=== PATIENT | male | born 1965 | race Caucasian/White ===

== ENCOUNTER 2017-01-15 17:57 | Emergency (ER) | payer OTHER ==
[2017-01-15 18:05] VITALS: TEMP 97.8
[2017-01-15] MEDS ORDERED: ACTIVATED CHARCOAL 50 GM/240 ML BOTTLE NG-TUBE STA (18:06)
[2017-01-15] MEDS ORDERED: SODIUM CHLORIDE 0.9% 500 ML IV STA (18:06)
--- NOTE | 2017-01-15 18:09 | ED ---
General Adult HPI - General Source: patient, EMS, RN notes reviewed Mode of arrival: EMS Limitations: no limitations <Maico Short - Last Filed: 01/15/17 18:13> <Clarke English - Last Filed: 01/15/17 23:25> - General Chief complaint: Overdose Stated complaint: overdose Time Seen by Provider: 01/15/17 18:00 - History of Present Illness Initial comments: Patient is a pleasant 51-year-old male presenting to the emergency department following an overdose. Patient states he took approximately 8 or 10 trazodone. Unclear dose. These were not his pills. Patient has been depressed and has multiple stressors including girlfriend and work and money and others. No history of suicide attempt in the past. Patient denies homicidal thoughts. No physical complaints. No hallucinations. (Maico Short) - Related Data Home Medications Medication Instructions Recorded Confirmed No Known Home Medications [No 01/15/17 01/15/17 Known Home Medications] Allergies Allergy/AdvReac Type Severity Reaction Status Date / Time No Known Allergies Allergy Verified 01/15/17 18:34 Review of Systems ROS Other: All systems not noted in ROS Statement are negative. Constitutional: Denies: fever, chills Eyes: Denies: eye pain ENT: Denies: ear pain Respiratory: Denies: cough, dyspnea Cardiovascular: Denies: chest pain Endocrine: Reports: fatigue Gastrointestinal: Denies: abdominal pain Genitourinary: Denies: dysuria Musculoskeletal: Denies: back pain Skin: Denies: rash Neurological: Denies: headache Psychiatric: Reports: depression, suicidal thoughts <Maico Short - Last Filed: 01/15/17 18:13> ROS Other: All systems not noted in ROS Statement are negative. <Clarke English - Last Filed: 01/15/17 23:25> ROS Statement: Those systems with pertinent positive or pertinent negative responses have been documented in the HPI. Past Medical History Past Medical History: Diabetes Mellitus History of Any Multi-Drug Resistant Organisms: None Reported Past Surgical History: Cholecystectomy, Orthopedic Surgery Additional Past Surgical History / Comment(s): Right leg steel sinai Past Anesthesia/Blood Transfusion Reactions: Previous Problems w/ Anesthesia Additional Past Anesthesia/Blood Transfusion Reaction / Comment(s): Stopped breathing during choly Past Psychological History: No Psychological Hx Reported Smoking Status: Current every day smoker Past Alcohol Use History: None Reported Past Drug Use History: None Reported - Past Family History Father Family Medical History: Coronary Artery Disease (CAD) Mother Family Medical History: No Reported History <Maico Short - Last Filed: 01/15/17 18:13> General Exam Limitations: no limitations General appearance: alert (Slightly drowsy. Easily arousable to voice), in no apparent distress Head exam: Present: atraumatic Eye exam: Present: normal appearance, PERRL, EOMI. Absent: nystagmus ENT exam: Present: normal oropharynx Neck exam: Present: normal inspection Respiratory exam: Present: normal lung sounds bilaterally Cardiovascular Exam: Present: regular rate, normal rhythm GI/Abdominal exam: Present: soft. Absent: tenderness Extremities exam: Present: normal inspection Neurological exam: Present: other (Drowsy) Psychiatric exam: Present: depressed Skin exam: Absent: rash <Maico Short - Last Filed: 01/15/17 18:13> EKG Findings - EKG Comments: EKG Findings:: Normal sinus rhythm 87. OR 172. QRS 90. QT 388. QTC 466. Right axis. Normal QRS. Normal ST-T. <Maico Short - Last Filed: 01/15/17 18:13> Medical Decision Making <Maico Short - Last Filed: 01/15/17 18:13> - Lab Data Result diagrams: 01/15/17 18:12 01/15/17 18:12 <Clarke English - Last Filed: 01/15/17 23:25> - Medical Decision Making Dr. Sohrt signed out the patient to me and stated that the patient was medically clear and that the psychiatric team was contacted [facility] came down to evaluate the patient and determined that the patient can be discharged home with appropriate follow-up and that was arranged. (Clarke English) - Lab Data Lab Results 01/15/17 01/15/17 01/15/17 Range/Units 18:12 18:12 18:12 WBC 8.3 (3.8-10.6) k/uL RBC 4.76 (4.30-5.90) m/uL Hgb 14.4 (13.0-17.5) gm/dL Hct 42.4 (39.0-53.0) % MCV 89.0 (80.0-100.0) fL MCH 30.2 (25.0-35.0) pg MCHC 33.9 (31.0-37.0) g/dL RDW 12.9 (11.5-15.5) % Plt Count 268 (150-450) k/uL Neutrophils % 53 % Lymphocytes % 38 % Monocytes % 4 % Eosinophils % 3 % Basophils % 1 % Neutrophils # 4.4 (1.3-7.7) k/uL Lymphocytes # 3.1 (1.0-4.8) k/uL Monocytes # 0.3 (0-1.0) k/uL Eosinophils # 0.2 (0-0.7) k/uL Basophils # 0.1 (0-0.2) k/uL PT (9.0-12.0) sec INR (<1.1) Sodium 140 (137-145) mmol/L Potassium 3.5 (3.5-5.1) mmol/L Chloride 109 H (98-107) mmol/L Carbon Dioxide 19 L (22-30) mmol/L Anion Gap 12 mmol/L BUN 14 (9-20) mg/dL Creatinine 0.82 (0.66-1.25) mg/dL Est GFR (MDRD) Af Amer >60 (>60 ml/min/1.73 sqM) Est GFR (MDRD) Non-Af >60 (>60 ml/min/1.73 sqM) Glucose 169 H (74-99) mg/dL Calcium 9.3 (8.4-10.2) mg/dL Total Bilirubin 0.7 (0.2-1.3) mg/dL AST 14 L (17-59) U/L ALT 21 (21-72) U/L Alkaline Phosphatase 68 (38-126) U/L Total Protein 6.7 (6.3-8.2) g/dL Albumin 3.9 (3.5-5.0) g/dL Salicylates <1.0 mg/dL Urine Opiates Screen Not Detected (NotDetected) Ur Oxycodone Screen Not Detected (NotDetected) Urine Methadone Screen Not Detected (NotDetected) Ur Propoxyphene Screen Not Detected (NotDetected) Acetaminophen <10.0 ug/mL Ur Barbiturates Screen Not Detected (NotDetected) U Tricyclic Antidepress Not Detected (NotDetected) Ur Phencyclidine Scrn Not Detected (NotDetected) Ur Amphetamines Screen Not Detected (NotDetected) U Methamphetamines Scrn Not Detected (NotDetected) U Benzodiazepines Scrn Not Detected (NotDetected) Urine Cocaine Screen Not Detected (NotDetected) U Marijuana (THC) Screen Not Detected (NotDetected) Serum Alcohol <10 mg/dL 01/15/17 Range/Units 18:12 WBC (3.8-10.6) k/uL RBC (4.30-5.90) m/uL Hgb (13.0-17.5) gm/dL Hct (39.0-53.0) % MCV (80.0-100.0) fL MCH (25.0-35.0) pg MCHC (31.0-37.0) g/dL RDW (11.5-15.5) % Plt Count (150-450) k/uL Neutrophils % % Lymphocytes % % Monocytes % % Eosinophils % % Basophils % % Neutrophils # (1.3-7.7) k/uL Lymphocytes # (1.0-4.8) k/uL Monocytes # (0-1.0) k/uL Eosinophils # (0-0.7) k/uL Basophils # (0-0.2) k/uL PT 11.3 (9.0-12.0) sec INR 1.1 (<1.1) Sodium (137-145) mmol/L Potassium (3.5-5.1) mmol/L Chloride (98-107) mmol/L Carbon Dioxide (22-30) mmol/L Anion Gap mmol/L BUN (9-20) mg/dL Creatinine (0.66-1.25) mg/dL Est GFR (MDRD) Af Amer (>60 ml/min/1.73 sqM) Est GFR (MDRD) Non-Af (>60 ml/min/1.73 sqM) Glucose (74-99) mg/dL Calcium (8.4-10.2) mg/dL Total Bilirubin (0.2-1.3) mg/dL AST (17-59) U/L ALT (21-72) U/L Alkaline Phosphatase (38-126) U/L Total Protein (6.3-8.2) g/dL Albumin (3.5-5.0) g/dL Salicylates mg/dL Urine Opiates Screen (NotDetected) Ur Oxycodone Screen (NotDetected) Urine Methadone Screen (NotDetected) Ur Propoxyphene Screen (NotDetected) Acetaminophen ug/mL Ur Barbiturates Screen (NotDetected) U Tricyclic Antidepress (NotDetected) Ur Phencyclidine Scrn (NotDetected) Ur Amphetamines Screen (NotDetected) U Methamphetamines Scrn (NotDetected) U Benzodiazepines Scrn (NotDetected) Urine Cocaine Screen (NotDetected) U Marijuana (THC) Screen (NotDetected) Serum Alcohol mg/dL Disposition <Maico Short - Last Filed: 01/15/17 18:13> Time of Disposition: 23:24 <Clarke English - Last Filed: 01/15/17 23:25> Clinical Impression: Situational depression, Drug overdose Disposition: HOME SELF-CARE Condition: Good Instructions: Depression (ED) Additional Instructions: Patient should follow-up per [facility]'s direction.
[2017-01-15 18:30] LABS: Basophils # (A) 0.1 k/uL (0-0.2); Basophils % (A) 1 %; CH 30.2; CHCM 34.1; Eosinophils # (A) 0.2 k/uL (0-0.7); Eosinophils % (A) 3 %; HCT 42.4 % (39.0-53.0); HDW 2.64; HGB 14.4 gm/dL (13.0-17.5); Luc # (Auto) 0.19; Luc % (Auto) 2; Lymphocytes # (A) 3.1 k/uL (1.0-4.8); Lymphocytes % (A) 38 %; MCH 30.2 pg (25.0-35.0); MCHC 33.9 g/dL (31.0-37.0); Mean Platelet Volume 7.3; Monocytes # (A) 0.3 k/uL (0-1.0); Monocytes % (A) 4 %; Neutrophils # (A) 4.4 k/uL (1.3-7.7); Neutrophils % (A) 53 %; RBC 4.76 m/uL (4.30-5.90); RDW 12.9 % (11.5-15.5); WBC 8.3 k/uL (3.8-10.6); WBC (Perox) 8.37
[2017-01-15 18:50] LABS: ALT 21 U/L (21-72); AST 14 U/L (17-59); Acetaminophen <10.0 ug/mL; Alcohol <10 mg/dL; Alkaline Phosphatase 68 U/L (38-126); Anion Gap 12 mmol/L; Blood Urea Nitrogen 14 mg/dL (9-20); Calcium 9.3 mg/dL (8.4-10.2); Carbon Dioxide 19 mmol/L (22-30); Chloride 109 mmol/L (98-107); Glucose 169 mg/dL (74-99); Non-African American GFR(MDRD) >60 (>60 ml/min/1.73 sqM); Potassium 3.5 mmol/L (3.5-5.1); Salicylate <1.0 mg/dL; Sodium 140 mmol/L (137-145); Total Bilirubin 0.7 mg/dL (0.2-1.3); Total Protein 6.7 g/dL (6.3-8.2)
[2017-01-15 18:51] LABS: INR 1.1 (<1.1); Prothrombin Time 11.3 sec (9.0-12.0)
[2017-01-15 23:44] VITALS: BP 108/66; PULSE 74; RESP 18
== END 2017-01-15 23:43 | disposition home or self-care (01) ==
LOC: EC 17:57
DX: T43.212A Poisoning by selective serotonin and norepinephrine reuptake inhibitors, intentional self-harm, initial encounter (principal); F43.21 Adjustment disorder with depressed mood; F17.200 Nicotine dependence, unspecified, uncomplicated
CPT/HCPCS: 36415; 80053; 80306; 80320; 83520; 85025; 85610; 93005; 96360; 99285

== ENCOUNTER 2017-04-12 14:58 | Emergency (ER) | payer OTHER ==
[2017-04-12 15:18] VITALS: BP 108/71; PULSE 101; RESP 16; TEMP 98.2
--- NOTE | 2017-04-12 15:39 | XR ---
EXAMINATION TYPE: XR knee complete LT DATE OF EXAM: 04/12/2017 CLINICAL HISTORY: pain TECHNIQUE: Three views of the left knee are obtained. COMPARISON: None. FINDINGS: There is no acute fracture/dislocation. The tri-compartment joint spaces appear within no rmal limits. The overlying soft tissue appears unremarkable. IMPRESSION: There is no acute fracture or dislocation ICD 10 NO FRACTURE, INITIAL EVALUATION
--- NOTE | 2017-04-12 15:56 | ED ---
Lower Extremity Injury HPI - General Chief Complaint: Extremity Injury, Lower Stated Complaint: [facility] left knee injury Time Seen by Provider: 04/12/17 15:20 Source: patient, RN notes reviewed Mode of arrival: ambulatory Limitations: no limitations - History of Present Illness Initial Comments: 52-year-old male presents emergency Department chief complaint left knee pain. 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 Patient states that he stepped into a pothole and twisted his knee. He has had ongoing pain on the lateral aspect. Patient states that he's had no prior injuries. Patient states his happened approximately one week ago. - Related Data Home Medications Medication Instructions Recorded Confirmed Ibuprofen [Advil] 400 mg PO Q8HR PRN 04/12/17 04/12/17 Previous Rx's Medication Instructions Recorded Acetaminophen-Codeine 300-30mg 1 tab PO Q4H PRN #20 tablet 04/12/17 [Tylenol #3] Ibuprofen [Motrin] 600 mg PO Q8HR PRN #30 tab 04/12/17 Allergies Allergy/AdvReac Type Severity Reaction Status Date / Time No Known Allergies Allergy Verified 04/12/17 15:24 Review of Systems ROS Statement: Those systems with pertinent positive or pertinent negative responses have been documented in the HPI. ROS Other: All systems not noted in ROS Statement are negative. Past Medical History Past Medical History: Diabetes Mellitus History of Any Multi-Drug Resistant Organisms: None Reported Past Surgical History: Orthopedic Surgery Additional Past Surgical History / Comment(s): Right leg steel sinai, stent placed in gallbladder Past Anesthesia/Blood Transfusion Reactions: Previous Problems w/ Anesthesia Additional Past Anesthesia/Blood Transfusion Reaction / Comment(s): Stopped breathing during choly Past Psychological History: No Psychological Hx Reported Smoking Status: Current every day smoker Past Alcohol Use History: None Reported Past Drug Use History: None Reported - Past Family History Father Family Medical History: Coronary Artery Disease (CAD) Mother Family Medical History: No Reported History General Exam Limitations: no limitations General appearance: alert, in no apparent distress Head exam: Present: atraumatic, normocephalic, normal inspection Neck exam: Present: normal inspection. Absent: tenderness, meningismus, lymphadenopathy Respiratory exam: Present: normal lung sounds bilaterally. Absent: respiratory distress, wheezes, rales, rhonchi, stridor Cardiovascular Exam: Present: regular rate, normal rhythm, normal heart sounds. Absent: systolic murmur, diastolic murmur, rubs, gallop, clicks Extremities exam: Present: other (Left knee there is nausea for no swelling no ecchymosis patient has pain over the lateral aspect.Patient has pain with various there is no laxity noted negative anterior posterior drawer) Course Vital Signs 04/12/17 15:12 Temperature 98.2 F Pulse Rate 101 H Respiratory 16 Rate Blood Pressure 108/71 O2 Sat by Pulse 95 Oximetry Medical Decision Making - Medical Decision Making 52-year-old male presented for left knee pain. Patient most likely has missed injury. Patient's x-ray does not show an acute osseous lesion. Patient will be follow-up with orthopedics return parameters were discussed. Disposition Clinical Impression: Left knee sprain, Injury of meniscus of knee Disposition: HOME SELF-CARE Condition: Stable Instructions: Knee Sprain (ED) Additional Instructions: Please return to the Emergency Department if symptoms worsen or any other concerns. Prescriptions: Acetaminophen-Codeine 300-30mg [Tylenol #3] 1 tab PO Q4H PRN #20 tablet PRN Reason: pain Ibuprofen [Motrin] 600 mg PO Q8HR PRN #30 tab PRN Reason: Pain Referrals: Francisco Phipps MD [Primary Care Provider] - 1-2 days Shabbir Pang MD [STAFF PHYSICIAN] - 1-2 days Time of Disposition: 15:56
== END 2017-04-12 16:01 | disposition home or self-care (01) ==
LOC: EC 14:58
DX: S83.8X2A Sprain of other specified parts of left knee, initial encounter (principal); F17.200 Nicotine dependence, unspecified, uncomplicated; Z98.890 Other specified postprocedural states; X50.1XXA Overexertion from prolonged static or awkward postures, initial encounter; Y93.89 Activity, other specified; Y99.0 Civilian activity done for income or pay; Y92.69 Other specified industrial and construction area as the place of occurrence of the external cause
CPT/HCPCS: 99283

== ENCOUNTER 2017-04-25 02:46 | Emergency (ER) | payer OTHER ==
[2017-04-25 02:53] VITALS: RESP 18
[2017-04-25] MEDS ORDERED: predniSONE 50 MG TAB PO STA (03:19)
[2017-04-25] MEDS ORDERED: HYDROcodone/APAP 5-325MG 1 EACH TAB PO STA (03:21)
--- NOTE | 2017-04-25 03:25 | ED ---
General Adult HPI - General Chief complaint: Neck Pain/Injury Stated complaint: Neck/Arm Pain Time Seen by Provider: 04/25/17 02:57 Source: patient, RN notes reviewed Mode of arrival: ambulatory Limitations: no limitations - History of Present Illness Initial comments: Patient is a 52-year-old male presents emergency room for evaluation of right- sided neck pain. Patient states he has a history of arthritis in his neck. Patient states during the night he began having worsening right-sided neck pain radiating into his right arm. Patient denies any recent trauma or injury to his neck. Patient states he has pain when he moves his neck from left to right. Patient denies numbness or tingling going down his right arm. Patient states he took Advil with no relief of symptoms. Patient denies any arm weakness. - Related Data Home Medications Medication Instructions Recorded Confirmed Ibuprofen [Advil] 400 mg PO Q8HR PRN 04/12/17 04/25/17 Previous Rx's Medication Instructions Recorded HYDROcodone/APAP 5-325MG [[place] 1 tab PO Q6HR PRN 12 Days 04/25/17 5-325] predniSONE 50 mg PO DAILY #4 tablet 04/25/17 Allergies Allergy/AdvReac Type Severity Reaction Status Date / Time No Known Allergies Allergy Verified 04/25/17 02:53 Review of Systems ROS Statement: Those systems with pertinent positive or pertinent negative responses have been documented in the HPI. ROS Other: All systems not noted in ROS Statement are negative. Past Medical History Past Medical History: Diabetes Mellitus, Osteoarthritis (OA) Additional Past Medical History / Comment(s): pt states diabetes has resolved after 62 lb weight loss History of Any Multi-Drug Resistant Organisms: None Reported Past Surgical History: Orthopedic Surgery Additional Past Surgical History / Comment(s): Right leg steel sinai, stent placed in gallbladder Past Anesthesia/Blood Transfusion Reactions: Previous Problems w/ Anesthesia Additional Past Anesthesia/Blood Transfusion Reaction / Comment(s): Stopped breathing during choly Past Psychological History: No Psychological Hx Reported Smoking Status: Current every day smoker Past Alcohol Use History: None Reported Past Drug Use History: None Reported - Past Family History Father Family Medical History: Coronary Artery Disease (CAD) Mother Family Medical History: No Reported History General Exam - General Exam Comments Initial Comments: Sitting in exam room, no acute distress. Limitations: no limitations General appearance: alert, in no apparent distress Head exam: Present: atraumatic, normocephalic, normal inspection Eye exam: Present: normal appearance ENT exam: Present: normal exam Neck exam: Present: tenderness ( Tenderness on palpating over the right trapezius muscle) Respiratory exam: Present: normal lung sounds bilaterally. Absent: respiratory distress Cardiovascular Exam: Present: regular rate, normal rhythm, normal heart sounds Extremities exam: Present: normal inspection, full ROM. Absent: tenderness Back exam: Present: normal inspection Neurological exam: Present: alert, oriented X3, CN II-XII intact, normal gait Psychiatric exam: Present: normal affect, normal mood Skin exam: Present: warm, dry, intact, normal color. Absent: rash Course Vital Signs 04/25/17 04/25/17 02:49 04:33 Temperature 98.0 F 97.8 F Pulse Rate 101 H 66 Respiratory 18 18 Rate Blood Pressure 125/75 119/69 O2 Sat by Pulse 98 98 Oximetry Medical Decision Making - Medical Decision Making patient is a 52-year-old male presents to the emergency room for evaluation of right-sided neck pain and arm pain. It appears the patient is having some muscle spasming of his right neck. Patient does have history of chronic neck pain. Patient having radiculopathy from neck pain. Patient be placed on prednisone and pain medications and advised to follow-up with primary care provider. Patient states he understands everything that was discussed with him. Return parameters discussed. Case discussed Dr. Santo. - Radiology Data Radiology results: report reviewed, image reviewed Disposition Clinical Impression: Cervical radiculopathy, Chronic neck pain Disposition: HOME SELF-CARE Condition: Good Instructions: Cervical Radiculopathy (ED), Neck Pain (ED) Additional Instructions: Please follow up with primary care provider in 1-2 days. If any new symptom arises or symptoms worsen, return to ER as soon as possible. Prescriptions: HYDROcodone/APAP 5-325MG [[place] 5-325] 1 tab PO Q6HR PRN 12 Days PRN Reason: Pain predniSONE 50 mg PO DAILY #4 tablet Referrals: Francisco Phipps MD [Primary Care Provider] - 1-2 days Time of Disposition: 04:27
--- NOTE | 2017-04-25 04:21 | XR ---
EXAM: XR Cervical Spine, 4 or 5 Views CLINICAL HISTORY: Reason: Pain TECHNIQUE: Frontal, lateral and oblique views of the cervical spine. COMPARISON: No relevant prior studies available. FINDINGS: Vertebrae: No acute fracture. Normal alignment. Disc spaces: Multilevel degenerative changes, greatest at C5-C6 and C6- C7 with moderate to severe right neuroforaminal narrowing. Soft tissues: Unremarkable. IMPRESSION: 1. No evidence of acute fracture. 2. Multilevel degenerative changes, greatest at C5-C6 and C6-C7 with moderate to severe right neuroforaminal narrowing.
[2017-04-25 04:37] VITALS: BP 119/69; PULSE 66; TEMP 97.8
== END 2017-04-25 04:38 | disposition home or self-care (01) ==
LOC: EC 02:46
DX: M54.12 Radiculopathy, cervical region (principal); F17.200 Nicotine dependence, unspecified, uncomplicated
CPT/HCPCS: 99283; 72050; J7512

== ENCOUNTER 2017-10-01 22:06 | Inpatient (IN) | payer OTHER ==
[2017-10-01 22:27] LABS: Basophils # (A) 0.1 k/uL (0-0.2); Basophils % (A) 1 %; Eosinophils # (A) 0.3 k/uL (0-0.7); Eosinophils % (A) 4 %; HCT 44.2 % (39.0-53.0); HGB 14.7 gm/dL (13.0-17.5); Lymphocytes # (A) 1.9 k/uL (1.0-4.8); Lymphocytes % (A) 29 %; MCH 30.2 pg (25.0-35.0); MCHC 33.2 g/dL (31.0-37.0); MCV 91.1 fL (80.0-100.0); Mean Platelet Volume 7.1; Monocytes # (A) 0.4 k/uL (0-1.0); Monocytes % (A) 6 %; Neutrophils # (A) 3.8 k/uL (1.3-7.7); Neutrophils % (A) 57 %; Platelet Count 233 k/uL (150-450); RBC 4.86 m/uL (4.30-5.90); RDW 12.6 % (11.5-15.5); WBC 6.6 k/uL (3.8-10.6)
--- NOTE | 2017-10-01 22:28 | ED ---
General Adult HPI - General Chief complaint: Chest Pain Stated complaint: Chest Pain Time Seen by Provider: 10/01/17 22:11 Source: patient, EMS, RN notes reviewed, old records reviewed Mode of arrival: EMS Limitations: no limitations - History of Present Illness Initial comments: This is a 49-year-old male to the ER for evaluation. Patient is here today for evaluation of chest pain. Patient coming chest pain, exertional shortness of breath. Patient states he does have history of PE. Denies illicit contacts or travel history recently. Patient is not currently on both respiratory no fever cough or congestion. Patient's chest pain is left sided, sharp. - Related Data Home Medications Medication Instructions Recorded Confirmed Ibuprofen [Advil] 400 mg PO Q8HR PRN 04/12/17 04/25/17 Previous Rx's Medication Instructions Recorded HYDROcodone/APAP 5-325MG [Merrill 1 tab PO Q6HR PRN 12 Days tab 04/25/17 5-325] predniSONE 50 mg PO DAILY #4 tablet 04/25/17 Allergies Allergy/AdvReac Type Severity Reaction Status Date / Time No Known Allergies Allergy Verified 04/25/17 02:53 Review of Systems ROS Statement: Those systems with pertinent positive or pertinent negative responses have been documented in the HPI. ROS Other: All systems not noted in ROS Statement are negative. Past Medical History Past Medical History: Diabetes Mellitus, Myocardial Infarction ([place]), Osteoarthritis (OA), Pulmonary Embolus (PE) Additional Past Medical History / Comment(s): pt states diabetes has resolved after 62 lb weight loss History of Any Multi-Drug Resistant Organisms: None Reported Past Surgical History: Orthopedic Surgery Additional Past Surgical History / Comment(s): Right leg steel sinai, stent placed in gallbladder Past Anesthesia/Blood Transfusion Reactions: Previous Problems w/ Anesthesia Additional Past Anesthesia/Blood Transfusion Reaction / Comment(s): Stopped breathing during choly Past Psychological History: No Psychological Hx Reported Smoking Status: Current every day smoker Past Alcohol Use History: None Reported Past Drug Use History: None Reported - Past Family History Father Family Medical History: Coronary Artery Disease (CAD) Mother Family Medical History: No Reported History General Exam Limitations: no limitations General appearance: alert, in no apparent distress, anxious Head exam: Present: atraumatic, normocephalic, normal inspection Eye exam: Present: normal appearance, PERRL, EOMI. Absent: scleral icterus, conjunctival injection, periorbital swelling ENT exam: Present: normal exam, mucous membranes moist Neck exam: Present: normal inspection. Absent: tenderness, meningismus, lymphadenopathy Respiratory exam: Present: normal lung sounds bilaterally. Absent: respiratory distress, wheezes, rales, rhonchi, stridor Cardiovascular Exam: Present: regular rate, normal rhythm, normal heart sounds. Absent: systolic murmur, diastolic murmur, rubs, gallop, clicks GI/Abdominal exam: Present: soft, normal bowel sounds. Absent: distended, tenderness, guarding, rebound, rigid Extremities exam: Present: normal inspection, full ROM, normal capillary refill. Absent: tenderness, pedal edema, joint swelling, calf tenderness Back exam: Present: normal inspection Neurological exam: Present: alert, oriented X3, CN II-XII intact Psychiatric exam: Present: normal affect, normal mood Skin exam: Present: warm, dry, intact, normal color. Absent: rash Course Vital Signs 10/01/17 10/01/17 10/01/17 22:15 22:24 23:24 Temperature 97.9 F 98.2 F Pulse Rate 94 84 Pulse Rate [ 88 [employer] ] Respiratory 20 16 Rate Blood Pressure 119/69 113/65 O2 Sat by Pulse 98 100 Oximetry - Reevaluation(s) Reevaluation #1: 10/01/17 22:27 Patient is admitted and transferred have episodes of bradycardia alternating bradycardia and tachycardia that was symptomatic EKG Findings - EKG Comments: EKG Findings:: EKG shows sinus rhythm rate of 86, MD 132, QRS 86, QTC 418 Medical Decision Making - Medical Decision Making 52 male here for evaluation of chest pain. Patient has persistent chest pain throat clear. Patient is a elevated troponin and non-ST elevated VT, patient will be admitted for cardiology evaluation and anticoagulation at this time. - Lab Data Result diagrams: 10/01/17 22:14 10/01/17 22:14 Lab Results 10/01/17 10/01/17 10/01/17 Range/Units 22:14 22:14 22:14 WBC 6.6 (3.8-10.6) k/uL RBC 4.86 (4.30-5.90) m/uL Hgb 14.7 (13.0-17.5) gm/dL Hct 44.2 (39.0-53.0) % MCV 91.1 (80.0-100.0) fL MCH 30.2 (25.0-35.0) pg MCHC 33.2 (31.0-37.0) g/dL RDW 12.6 (11.5-15.5) % Plt Count 233 (150-450) k/uL Neutrophils % 57 % Lymphocytes % 29 % Monocytes % 6 % Eosinophils % 4 % Basophils % 1 % Neutrophils # 3.8 (1.3-7.7) k/uL Lymphocytes # 1.9 (1.0-4.8) k/uL Monocytes # 0.4 (0-1.0) k/uL Eosinophils # 0.3 (0-0.7) k/uL Basophils # 0.1 (0-0.2) k/uL PT (9.0-12.0) sec INR (<1.2) APTT (22.0-30.0) sec Sodium 140 (137-145) mmol/L Potassium 4.7 (3.5-5.1) mmol/L Chloride 105 (98-107) mmol/L Carbon Dioxide 27 (22-30) mmol/L Anion Gap 8 mmol/L BUN 16 (9-20) mg/dL Creatinine 0.80 (0.66-1.25) mg/dL Est GFR (MDRD) Af Amer >60 (>60 ml/min/1.73 sqM) Est GFR (MDRD) Non-Af >60 (>60 ml/min/1.73 sqM) Glucose 206 H (74-99) mg/dL Calcium 9.2 (8.4-10.2) mg/dL Magnesium 2.0 (1.6-2.3) mg/dL Total Bilirubin 0.3 (0.2-1.3) mg/dL AST 16 L (17-59) U/L ALT 32 (21-72) U/L Alkaline Phosphatase 78 (38-126) U/L Total Creatine Kinase 115 (55-170) U/L CK-MB (CK-2) 3.0 H* (0.0-2.4) ng/mL CK-MB (CK-2) Rel Index 2.6 Troponin I 0.564 H* (0.000-0.034) ng/mL Total Protein 6.1 L (6.3-8.2) g/dL Albumin 3.7 (3.5-5.0) g/dL Lipase 107 (23-300) U/L 10/01/17 Range/Units 22:14 WBC (3.8-10.6) k/uL RBC (4.30-5.90) m/uL Hgb (13.0-17.5) gm/dL Hct (39.0-53.0) % MCV (80.0-100.0) fL MCH (25.0-35.0) pg MCHC (31.0-37.0) g/dL RDW (11.5-15.5) % Plt Count (150-450) k/uL Neutrophils % % Lymphocytes % % Monocytes % % Eosinophils % % Basophils % % Neutrophils # (1.3-7.7) k/uL Lymphocytes # (1.0-4.8) k/uL Monocytes # (0-1.0) k/uL Eosinophils # (0-0.7) k/uL Basophils # (0-0.2) k/uL PT 9.6 (9.0-12.0) sec INR 1.0 (<1.2) APTT 22.7 (22.0-30.0) sec Sodium (137-145) mmol/L Potassium (3.5-5.1) mmol/L Chloride (98-107) mmol/L Carbon Dioxide (22-30) mmol/L Anion Gap mmol/L BUN (9-20) mg/dL Creatinine (0.66-1.25) mg/dL Est GFR (MDRD) Af Amer (>60 ml/min/1.73 sqM) Est GFR (MDRD) Non-Af (>60 ml/min/1.73 sqM) Glucose (74-99) mg/dL Calcium (8.4-10.2) mg/dL Magnesium (1.6-2.3) mg/dL Total Bilirubin (0.2-1.3) mg/dL AST (17-59) U/L ALT (21-72) U/L Alkaline Phosphatase (38-126) U/L Total Creatine Kinase (55-170) U/L CK-MB (CK-2) (0.0-2.4) ng/mL CK-MB (CK-2) Rel Index Troponin I (0.000-0.034) ng/mL Total Protein (6.3-8.2) g/dL Albumin (3.5-5.0) g/dL Lipase (23-300) U/L - Radiology Data Radiology results: report reviewed (Chest x-ray negative CT chest is negative), image reviewed Critical Care Time Critical Care Time: Yes Total Critical Care Time: 31 Disposition Clinical Impression: Unstable angina pectoris, NSTEMI (non-ST elevated myocardial infarction) Disposition: ADMITTED IP TO THIS HOSP Condition: Serious Referrals: Francisco Phipps MD [Primary Care Provider] - 1-2 days
--- NOTE | 2017-10-01 22:33 | XR ---
EXAMINATION TYPE: XR chest 2V DATE OF EXAM: 10/01/2017 COMPARISON: Chest x-ray and CTA chest March 29, 2016 HISTORY: Chest pain. TECHNIQUE: Frontal and lateral views of the chest are obtained. FINDINGS: There is no focal air space opacity, pleural effusion, or pneumothorax seen. The cardiac silhouette size is upper limits of normal. The osseous structures are intact. IMPRESSION: No acute cardiopulmonary process currently.
[2017-10-01 22:36] LABS: Partial Thromboplastin Time 22.7 sec (22.0-30.0); Prothrombin Time 9.6 sec (9.0-12.0)
[2017-10-01 22:42] LABS: ALT 32 U/L (21-72); AST 16 U/L (17-59); Albumin 3.7 g/dL (3.5-5.0); Alkaline Phosphatase 78 U/L (38-126); Anion Gap 8 mmol/L; Blood Urea Nitrogen 16 mg/dL (9-20); Calcium 9.2 mg/dL (8.4-10.2); Carbon Dioxide 27 mmol/L (22-30); Chloride 105 mmol/L (98-107); Glucose 206 mg/dL (74-99); Lipase 107 U/L (23-300); Potassium 4.7 mmol/L (3.5-5.1); Sodium 140 mmol/L (137-145); Total Bilirubin 0.3 mg/dL (0.2-1.3); Total Protein 6.1 g/dL (6.3-8.2)
[2017-10-01] MEDS ORDERED: RX INFO: IV CONTRAST WAS GIVEN 1 EACH MISC MISCELLANE PRN (22:45)
--- NOTE | 2017-10-01 23:09 | CT ---
EXAMINATION TYPE: CT angio chest DATE OF EXAM: 10/01/2017 COMPARISON: CTA chest 03-29-2016. HISTORY: chest pain CT DLP: 339.80 mGycm. Automated Exposure Control for Dose Reduction was Utilized. CONTRAST: CTA scan of the thorax is performed with IV Contrast, patient injected with 70 mL of Omnipaque 350, p ulmonary embolism protocol. MIP Images are created on CT scanner and reviewed. FINDINGS: LUNGS: Some dependent atelectasis in both lower lobes is present. There is no concerning parenchymal mass or nodule identified. No suspicious consolidation is evident. There is no pleural effusion or p neumothorax seen. The tracheobronchial tree is patent. MEDIASTINUM: There is satisfactory enhancement of the pulmonary artery and its branches, there is no CT evidence for pulmonary embolism. There are no greater than 1 cm hilar or mediastinal lymph nodes. No cardiomegaly or pericardial effusion is seen. OTHER: Bilateral gynecomastia is redemonstrated. IMPRESSION: No CT evidence for pulmonary embolism on current study. No suspicious acute pulmonary pro cess currently.
[2017-10-01 23:14] LABS: Troponin I 0.564 ng/mL (0.000-0.034)
[2017-10-01] MEDS ORDERED: NITROGLYCERIN SL TABS 0.4 MG TAB SUBLINGUAL PRN (23:24)
[2017-10-01] MEDS ORDERED: HEPARIN SODIUM,PORCINE 5,000 UNIT/ML 1 ML VIAL IV ONE (23:24)
[2017-10-01] MEDS ORDERED: ASPIRIN 81 MG PO STA (23:24)
[2017-10-01] MEDS ORDERED: HEPARIN SODIUM,PORCINE 5,000 UNIT/ML 1 ML VIAL IV PRN (23:24)
[2017-10-01] MEDS ORDERED: MORPHINE SULFATE 5 MG/ML SYRINGE IV PRN (23:24)
[2017-10-01] MEDS ORDERED: HEPARIN SOD,PORK IN 0.45% NACL 25,000 UNIT in 0.45% NACL 1 500ML.BAG IV SCH (23:30)
[2017-10-01] MEDS: SODIUM CHLORIDE 0.9% 1,000 ML IV SCH (23:38)
[2017-10-02 06:03] LABS: Cholesterol 174 mg/dL (<200); HDL Cholesterol 35 mg/dL (40-60); LDL Cholesterol,Calculated 113 mg/dL (0-99); Triglycerides 131 mg/dL (<150)
[2017-10-02 06:05] LABS: Platelet Count 207 k/uL (150-450)
[2017-10-02 06:27] LABS: Creatine Kinase MB 4.3 ng/mL (0.0-2.4); Troponin I 1.53 ng/mL (0.000-0.034)
[2017-10-02] MEDS ORDERED: ASPIRIN 325 MG TAB PO SCH (09:00)
[2017-10-02] MEDS ORDERED: METOPROLOL TARTRATE 50 MG TAB PO SCH (09:00)
[2017-10-02] MEDS ORDERED: SODIUM CHLORIDE 0.9% 1,000 ML in EMPTY BAG 1 BAG IV ONE (09:06)
[2017-10-02] MEDS ORDERED: NITROGLYCERIN SL TABS 0.4 MG TAB SUBLINGUAL PRN (09:06)
[2017-10-02] MEDS ORDERED: ASPIRIN 325 MG TAB PO STA (09:06)
[2017-10-02] MEDS ORDERED: ATORVASTATIN 80 MG TAB PO STA (09:06)
[2017-10-02] MEDS ORDERED: ALPRAZolam 0.5 MG TAB PO PRN (09:06)
[2017-10-02] MEDS ORDERED: ALPRAZolam 0.25 MG TAB PO PRN (09:06)
[2017-10-02] MEDS: ATORVASTATIN 80 MG TAB PO SCH (09:30)
[2017-10-02 09:45] LABS: Glucose,Whole Blood 170 mg/dL (75-99)
[2017-10-02] MEDS ORDERED: IV FLUID CONTINUATION 1,000 ML IV ONE (10:18)
[2017-10-02] MEDS ORDERED: LIDOCAINE 2% INJ 20 MG/ML (20 ML MDV) ONE (10:29)
[2017-10-02] MEDS ORDERED: VERAPAMIL 2.5 MG/ML 2 ML AMP ONE (10:29)
[2017-10-02] MEDS ORDERED: fentaNYL (PF) 50 MCG/ML 2 ML AMP ONE (10:30)
[2017-10-02] MEDS ORDERED: LIDOCAINE 2% INJ 20 MG/ML SQ ONE (10:56)
[2017-10-02] MEDS ORDERED: fentaNYL (PF) 50 MCG/ML 2 ML AMP IV ONE (10:57)
[2017-10-02] MEDS ORDERED: VERAPAMIL SYRINGE (5 MG/10 ML) INTRAARTER ONE (11:00)
--- NOTE | 2017-10-02 11:06 | CONS ---
CONSULTATION Mr. Aleksey khanna is a 52-year-old male with no prior documented coronary artery disease with prior history of a clot that appears to be probably pulmonary embolism who presented with symptoms of chest and arm discomfort. The discomfort started yesterday after physical activity and persisted when he went to bed. Because of his persistent symptoms, came into the emergency room. At the time of my evaluation, he is pain-free. The patient denies any prior documented history of coronary artery disease. He denies any exertional chest discomfort on a regular basis. His breathing has been stable. He denies any dizziness or palpitation. He denies any syncope. No clear PND, orthopnea. No peripheral edema. His coronary risk factors are negative for smoking. He is nondiabetic. No documented hyperlipidemia. MEDICATION: His medications at home are none. REVIEW OF SYSTEMS: RESPIRATORY SYSTEM: No recent wheezing. No cough. No history of obstructive lung disease. GI SYSTEM: No recent GI bleed. No peptic ulcer disease. SYSTEM: No dysuria or hematuria. NERVOUS SYSTEM: No history of stroke or seizure. PHYSICAL EXAMINATION: He is a 52-year-old male, alert, oriented, in no apparent distress. Blood pressure 101/57 with a heart in 50s. HEAD: Normocephalic. EYES: Sclerae anicteric. NECK: Good carotid upstroke. No bruit or venous distention. LUNGS: Clear to auscultation. HEART: Regular rhythm S1, S2. No S3. No rub or gallop. ABDOMEN: Soft, nontender. Positive bowel sounds. No organomegaly. EXTREMITIES: No edema. Intact distal pulses. LAB DATA: Lab data revealed a troponin of 0.56 and 1.5, cholesterol 174, LDL 113, BUN and creatinine 16 and 0.8. Blood sugar of 206, hemoglobin 14.7. CT angiogram of the chest revealed no evidence of pulmonary embolism. Chest x-ray shows no acute infiltrate. EKG reveals sinus mechanism with normal intervals and mild ST-segment changes in the anterior leads. IMPRESSION: 1. Evidence of non ST-segment elevation myocardial infarction. 2. Mild hyperlipidemia. RECOMMENDATION: I recommend proceeding with coronary angiography to assess the status and guide his treatment. The rationale behind the procedures, the risks and complication were discussed with the patient who is in full understanding and agreement. Depending on the results of testing, further recommendation will be made. Thank you for this consult. We will follow with you. KRYSODL / IJN: [id number] /
[2017-10-02] MEDS ORDERED: HEPARIN SODIUM 1,000 UN/ML (10ML VL) ONE (11:11)
[2017-10-02] MEDS ORDERED: HEPARIN SODIUM 1,000 UN/ML (10ML VL) IV ONE (11:13)
[2017-10-02] MEDS ORDERED: IOHEXOL 350 MG/ML 125ML BOTTLE INJ ONE (11:20)
[2017-10-02] MEDS ORDERED: RX INFO: IV CONTRAST WAS GIVEN 1 EACH MISC MISCELLANE PRN (11:35)
[2017-10-02] MEDS ORDERED: HEPARIN SODIUM,PORCINE 5,000 UNIT/ML 1 ML VIAL IV PRN (11:38)
[2017-10-02] MEDS ORDERED: SODIUM CHLORIDE 0.9% 1,000 ML IV SCH (11:45)
[2017-10-02] MEDS: SODIUM CHLORIDE 0.9% 1,000 ML IV SCH ×3 (12:59→21:22)
[2017-10-02 13:14] LABS: Basophils # (A) 0.1 k/uL (0-0.2); Basophils % (A) 1 %; Eosinophils # (A) 0.3 k/uL (0-0.7); Eosinophils % (A) 4 %; HCT 44.7 % (39.0-53.0); HGB 14.3 gm/dL (13.0-17.5); Lymphocytes % (A) 23 %; MCH 29.7 pg (25.0-35.0); MCHC 31.9 g/dL (31.0-37.0); MCV 93.2 fL (80.0-100.0); Mean Platelet Volume 7.9; Monocytes # (A) 0.3 k/uL (0-1.0); Monocytes % (A) 4 %; Neutrophils # (A) 5.8 k/uL (1.3-7.7); Neutrophils % (A) 67 %; Platelet Count 201 k/uL (150-450); RDW 14.1 % (11.5-15.5); WBC 8.6 k/uL (3.8-10.6)
[2017-10-02 13:18] LABS: Partial Thromboplastin Time 38.7 sec (22.0-30.0); Prothrombin Time 10.1 sec (9.0-12.0)
[2017-10-02] MEDS: METOPROLOL TARTRATE 25 MG TAB PO SCH ×2 (13:27→21:21)
[2017-10-02 13:43] LABS: Creatine Kinase MB 3.8 ng/mL (0.0-2.4); Troponin I 1.43 ng/mL (0.000-0.034)
--- NOTE | 2017-10-02 13:51 | LTR ---
October 02, [address] Phipps: I had the pleasure of performing cardiac catheterization on Mr. Ryder at [facility] on October 02 and full copy of the procedure note will be forwarded to you. In brief, he was found to have evidence of triple-vessel coronary disease with mildly impaired left ventricular systolic function. In view of the finding, I recommend proceeding with coronary artery bypass grafting. I will keep you updated on his progress. Thank you again for allowing me to participate in his care. Please feel free to call for any questions. Sincerely yours, MMODL / IJN: [id number] /
--- NOTE | 2017-10-02 13:51 | CC ---
CARDIAC CATHETERIZATION REPORT Mr. Ryder is a 52-year-old male with a family history of premature coronary disease and no other cardiac known risk factors, who presented with symptoms of chest discomfort consistent with angina pectoris with mild troponin elevation consistent with non ST-segment elevation myocardial infarction. In view of that, recommendation made regarding cardiac catheterization. The procedure, risks and complication were discussed with the patient who is in full understanding and agreement. PROCEDURE: Patient was brought to the laboratory cureman in a fasting semisedated state after receiving fentanyl and Benadryl and achieving moderate conscious sedated state. Using Xylocaine anesthesia, Seldinger technique a 6-[place] sheath was introduced in the right radial artery. Selective right and left coronary angiography performed using 5-[place] 3-1/2 bend right Prabhu catheterization. Multiple views of the coronary arteries including hemiaxial view was obtained. Following that, 5-[place] tight pigtail catheter was in the left ventricle and a 30 degree FERNANDO view of the left ventricle was obtained. Following that, the catheter and sheath were removed. Hemostasis was obtained with deployment of a TR band. There was no immediate complication. Patient is returned to his room in stable condition. FINDINGS: 1. LEFT MAIN: This is a large-sized vessel bifurcating left circumflex and left anterior descending artery. Left main coronary artery is without any significant obstructive disease. 2. LEFT ANTERIOR ARTERY: This is a large-sized vessel reaching to the apex with a wraparound apex segment giving rise to a large diagonal branch proximally. The LAD proximally has a long segment of stenosis up to 99% stenosis extending beyond the diagonal branch takeoff. The diagonal branch takeoff has another 70-80% stenosis. The distal vessel has no high-grade stenosis. 3. LEFT CIRCUMFLEX: This is a nondominant vessel, large in caliber, giving rise to 2 obtuse marginal branch in the mid segment after the takeoff of the first obtuse marginal branch. There is an eccentric 70% stenosis. The rest of the vessel has no high-grade stenosis. 4. RIGHT CORONARY ARTERY: This is a dominant vessel, moderate in caliber, proximally has a 50 to 60% stenosis. The mid distal segment has a complex lesion at that appears chronic lesion that recanalized with area of stenosis up to 99% distally. The PDA and PLV have no evidence of high-grade stenosis. 5. COLLATERALS: There are collaterals from the left coronary system toward the distal right PDA. 6. LEFT VENTRICULOGRAM: Left ventriculogram was performed in 30 degree FERNANDO view and revealed inferoapical hypokinesis to akinesis. Ejection fraction is 50%. There was no evidence of mitral regurgitation. 7. HEMODYNAMICS: There was no gradient across the aortic valve. The left ventricle end-diastolic pressure was 16-18 mmHg. CONCLUSION: 1. Triple-vessel disease. 2. Mildly impaired left ventricular systolic function. RECOMMENDATION: In view of finding anatomy, I recommend proceeding with evaluation for coronary bypass grafting. The finding and recommendation were discussed with the patient who is in full understanding and agreement. Duration of procedure is 26 minutes. MMODL / IJN: [id number] /
[2017-10-02] MEDS ORDERED: HEPARIN SOD,PORK IN 0.45% NACL 25,000 UNIT in 0.45% NACL 1 500ML.BAG IV SCH (14:45)
[2017-10-02] MEDS ORDERED: MD COMMUNICATION TO PHARMACY 1 EACH MISC PO ONE ×4 (19:58)
[2017-10-02 21:30] LABS: Appearance,Urine Clear (Clear); Bilirubin,Urine Negative (Negative); Blood,Urine Negative (Negative); Color,Urine Light Yellow; Glucose,Urine (UA) Negative (Negative); Ketones,Urine Negative (Negative); Leukocyte Esterase,Urine Negative (Negative); Nitrite,Urine Negative (Negative); Protein,Urine Negative (Negative); Specific Gravity,Urine 1.009 (1.001-1.035); Urobilinogen,Urine <2.0 mg/dL (<2.0)
[2017-10-03 06:23] LABS: Basophils # (A) 0.1 k/uL (0-0.2); Basophils % (A) 1 %; Eosinophils # (A) 0.3 k/uL (0-0.7); Eosinophils % (A) 3 %; HCT 45.9 % (39.0-53.0); HGB 14.7 gm/dL (13.0-17.5); Lymphocytes # (A) 1.7 k/uL (1.0-4.8); Lymphocytes % (A) 21 %; MCV 90.5 fL (80.0-100.0); Mean Platelet Volume 8.1; Monocytes # (A) 0.4 k/uL (0-1.0); Monocytes % (A) 5 %; Neutrophils # (A) 5.3 k/uL (1.3-7.7); Neutrophils % (A) 68 %; Platelet Count 230 k/uL (150-450); RBC 5.07 m/uL (4.30-5.90); RDW 14.1 % (11.5-15.5); WBC 7.8 k/uL (3.8-10.6)
[2017-10-03 06:31] LABS: Partial Thromboplastin Time 22.5 sec (22.0-30.0); Prothrombin Time 9.8 sec (9.0-12.0)
[2017-10-03] MEDS ORDERED: HEPARIN SODIUM,PORCINE 5,000 UNIT/ML 1 ML VIAL IV PRN (08:07)
[2017-10-03] MEDS ORDERED: HEPARIN SOD,PORK IN 0.45% NACL 25,000 UNIT in 0.45% NACL 1 500ML.BAG IV SCH (08:15)
[2017-10-03] MEDS ORDERED: HEPARIN SODIUM,PORCINE 5,000 UNIT/ML 1 ML VIAL IV ONE (08:45)
[2017-10-03] MEDS: ASPIRIN 81 MG PO SCH (08:53)
[2017-10-03] MEDS: HEPARIN SOD,PORK IN 0.45% NACL 25,000 UNIT in 0.45% NACL 1 500ML.BAG IV SCH (08:54)
[2017-10-03] MEDS: ATORVASTATIN 80 MG TAB PO SCH (08:54)
[2017-10-03] MEDS: MUPIROCIN 2% OINT 22 GM TUBE NASAL SCH ×2 (08:55→20:11)
--- NOTE | 2017-10-03 08:57 | P.GSCN ---
<Nidia Hoyos - Last Filed: 10/03/17 08:40> History of Present Illness Consult date: 10/03/17 Reason for Consult: Triple-vessel coronary artery disease, surgical recommendations. Requesting physician: London Soto History of present illness: This 52-year-old gentleman who follows with Dr. Phipps on an outpatient basis into and through has a history of pulmonary embolism 2 years ago with Coumadin for 6 months, current tobacco dependence, and family history of premature coronary artery disease with his father having double bypass surgery in his 50s presented to the emergency room with complaints of constant substernal chest pain which he states radiated down his left arm and felt like someone was sitting on his chest, associated with shortness of breath, nausea, diaphoresis but no dizziness, and was worse when going from a laying to sitting position, which was relieved with nitro. He was taken to the [facility] by Dr. Soto which demonstrated the proximal LAD with a long segment of stenosis up to 99%, diagonal branch with 70-80% stenosis, eccentric 70% stenosis in the midsegment of the circumflex artery, proximal RCA stenosis of 50-60% with distal RCA stenosis of 99%, there is collateral from the left coronary system to the distal right PDA. LV gram demonstrated an ejection fraction of 50% with inferioapical hypokinesis and no evidence of mitral regurgitation and no gradient across the aortic valve. Dr. Montiel cardiothoracic surgery was consulted for recommendations regarding surgical revascularization. Review of Systems 14 point review of systems was completed and was negative except as noted. - Constitutional Reports sweats - Cardiovascular Reports as per HPI, Reports chest pain, Reports shortness of breath - Respiratory Reports as per HPI - Gastrointestinal Reports as per HPI, Reports nausea Past Medical History Past Medical History: Diabetes Mellitus, Myocardial Infarction ([place]), Osteoarthritis (OA), Pulmonary Embolus (PE) Additional Past Medical History / Comment(s): pt states diabetes has resolved after 62 lb weight loss Last Myocardial Infarction Date:: 2 years ago History of Any Multi-Drug Resistant Organisms: None Reported Past Surgical History: Orthopedic Surgery Additional Past Surgical History / Comment(s): Right leg steel sinai, stent placed in gallbladder, as of 10-02 stent is out Past Anesthesia/Blood Transfusion Reactions: Previous Problems w/ Anesthesia Additional Past Anesthesia/Blood Transfusion Reaction / Comm: Stopped breathing during choly Past Psychological History: No Psychological Hx Reported Smoking Status: Current every day smoker Past Alcohol Use History: None Reported Past Drug Use History: None Reported - Past Family History Father Family Medical History: Coronary Artery Disease (CAD) Additional Family Medical History / Comment(s): Father had double coronary bypass surgery in his 50s. Mother Family Medical History: No Reported History Medications and Allergies Home Medications Medication Instructions Recorded Confirmed Type No Known Home Medications [No 10/02/17 10/02/17 History Known Home Medications] Allergies Allergy/AdvReac Type Severity Reaction Status Date / Time No Known Allergies Allergy Verified 10/02/17 07:15 Surgical - Exam Vital Signs Temp Pulse Resp BP Pulse Ox 97.9 F 94 20 119/69 98 10/01/17 22:15 10/01/17 22:15 10/01/17 22:15 10/01/17 22:15 10/01/17 22:15 - General well developed, well nourished, no distress, no pain - Eyes PERRL, normal ocular movement - ENT no hearing loss, dentures - Neck no masses, no bruits, trachea midline - Respiratory Lungs sounds diminished bilaterally. Respirations even, nonlabored. Currently on room air with oxygen saturation 94%. - Cardiovascular S1, S2 present. Regular rate and rhythm, sinus rhythm on telemetry. Palpable peripheral pulses bilaterally. No edema present. No varicosities present. - Abdomen Abdomen: soft, non tender, bowel sounds - Genitourinary Deferred - Rectum Deferred - Integumentary no rash, no growths, no abnormal pigmentation - Neurologic normal coordination, normal sensation - Musculoskeletal normal gait, normal posture - Psychiatric oriented to time, oriented to person, oriented to place, speech is normal, memory intact Results - Labs 10/03/17 05:41 10/01/17 22:14 Abnormal Lab Results - Last 24 Hours (Table) 10/02/17 10/02/17 10/02/17 Range/Units 09:40 12:49 12:49 APTT 38.7 H (22.0-30.0) sec POC Glucose (mg/dL) 170 H (75-99) mg/dL CK-MB (CK-2) 3.8 H* (0.0-2.4) ng/mL Troponin I 1.430 H* (0.000-0.034) ng/mL 10/02/17 10/02/17 Range/Units 17:23 23:11 APTT (22.0-30.0) sec POC Glucose (mg/dL) (75-99) mg/dL CK-MB (CK-2) (0.0-2.4) ng/mL Troponin I 1.390 H* 0.981 H* (0.000-0.034) ng/mL Thyroid panel 10/03/17 Range/Units 05:41 TSH 3.810 (0.465-4.680) mIU/L Pituitary panel 10/03/17 Range/Units 05:41 TSH 3.810 (0.465-4.680) mIU/L - Imaging Chest x-ray: report reviewed, image reviewed CT scan - chest: report reviewed, image reviewed Assessment and Plan (1) Tobacco dependence Current Visit: Yes Status: Chronic Code(s): F17.200 - NICOTINE DEPENDENCE, UNSPECIFIED, UNCOMPLICATED SNOMED Code(s): 12781592 (2) History of pulmonary embolism Current Visit: No Status: Resolved Code(s): Z86.711 - PERSONAL HISTORY OF PULMONARY EMBOLISM SNOMED Code(s): 331156480 (3) Family history of premature coronary artery disease Current Visit: Yes Status: Chronic Code(s): Z82.49 - FAMILY HX OF ISCHEM HEART DIS AND OTH DIS OF THE CIRC SYS SNOMED Code(s): 315719184 (4) NSTEMI (non-ST elevated myocardial infarction) Current Visit: Yes Status: Acute Code(s): I21.4 - NON-ST ELEVATION (NSTEMI) MYOCARDIAL INFARCTION SNOMED Code(s): 921830899 (5) Chest pain Current Visit: Yes Status: Acute Code(s): R07.9 - CHEST PAIN, UNSPECIFIED SNOMED Code(s): 83025902 Plan: Patient seen and examined at the bedside. Chart/diagnostics were reviewed. Dr. Soto did discuss the case with Dr. Montiel. We will obtain preadmission testing including echocardiogram, carotid Dopplers, pulmonary function test, and blood work. Preoperative teaching initiated with the patient. Risks and benefits of surgery were reviewed with the patient. Recommend maximizing medical therapy preoperatively with aspirin, statin, beta keven. Anticipate coronary artery bypass graft surgery on October 05 pending results of preoperative testing. Thank you Dr. Soto for this consult. We look forward to working with you in the care of your patient. Time with Patient: Greater than 30 <Cuong Montiel - Last Filed: 10/04/17 09:36> Surgical - Exam Vital Signs Temp Pulse Resp BP Pulse Ox 97.9 F 94 20 119/69 98 10/01/17 22:15 10/01/17 22:15 10/01/17 22:15 10/01/17 22:15 10/01/17 22:15 Results - Labs 10/04/17 07:35 10/04/17 07:35 Abnormal Lab Results - Last 24 Hours (Table) 10/03/17 10/03/17 10/04/17 Range/Units 05:41 17:48 01:03 APTT 42.9 H 45.3 H (22.0-30.0) sec Glucose (74-99) mg/dL Hemoglobin A1c 6.7 H (4.0-6.0) % Crossmatch 10/04/17 10/04/17 10/04/17 Range/Units 07:35 07:35 07:35 APTT 48.6 H (22.0-30.0) sec Glucose 161 H (74-99) mg/dL Hemoglobin A1c (4.0-6.0) % Crossmatch See Detail Microbiology - Last 24 Hours (Table) 10/02/17 20:45 Nasal Screen MRSA/MSSA (MOISÉS) - Preliminary Nasal Swab 10/02/17 19:09 Urine Culture - Preliminary Urine,Clean Catch Diabetes panel 10/03/17 10/04/17 Range/Units 05:41 07:35 Sodium 141 (137-145) mmol/L Potassium 4.6 (3.5-5.1) mmol/L Chloride 106 (98-107) mmol/L Carbon Dioxide 26 (22-30) mmol/L BUN 13 (9-20) mg/dL Creatinine 0.80 (0.66-1.25) mg/dL Glucose 161 H (74-99) mg/dL Hemoglobin A1c 6.7 H (4.0-6.0) % Calcium 9.1 (8.4-10.2) mg/dL Calcium panel 10/04/17 Range/Units 07:35 Calcium 9.1 (8.4-10.2) mg/dL Pituitary panel 10/04/17 Range/Units 07:35 Sodium 141 (137-145) mmol/L Potassium 4.6 (3.5-5.1) mmol/L Chloride 106 (98-107) mmol/L Carbon Dioxide 26 (22-30) mmol/L BUN 13 (9-20) mg/dL Creatinine 0.80 (0.66-1.25) mg/dL Glucose 161 H (74-99) mg/dL Calcium 9.1 (8.4-10.2) mg/dL Adrenal panel 10/04/17 Range/Units 07:35 Sodium 141 (137-145) mmol/L Potassium 4.6 (3.5-5.1) mmol/L Chloride 106 (98-107) mmol/L Carbon Dioxide 26 (22-30) mmol/L BUN 13 (9-20) mg/dL Creatinine 0.80 (0.66-1.25) mg/dL Glucose 161 H (74-99) mg/dL Calcium 9.1 (8.4-10.2) mg/dL Assessment and Plan Plan: The patient was seen and examined. I agree with the above assessment and plan. The patient is a 52-year-old male who presented to the hospital with chest pain. He was diagnosed with a non-ST elevation myocardial infarction. Cardiac catheterization revealed multivessel coronary artery disease. A coronary artery bypass is recommended. The risks, benefits, and alternatives to this procedure were discussed with the patient. All of his questions were answered. His preoperative workup has been personally reviewed. We will plan on performing his surgery on October 05.
--- NOTE | 2017-10-03 10:26 | ECHOF ---
Referral Reason:il MEASUREMENTS -------- HEIGHT: 188.0 cm WEIGHT: 98.0 kg BP: 114/56 RVIDd: 3.0 cm (< 3.3) IVSd: 1.2 cm (0.6 - 1.1) LVIDd: 4.6 cm (3.9 - 5.3) LVPWd: 1.2 cm (0.6 - 1.1) IVSs: 1.7 cm LVIDs: 3.0 cm LVPWs: 1.7 cm LA Diam: 3.9 cm (2.7 - 3.8) LAESV Index (A-L): 21.11 ml/m Ao Diam: 3.4 cm (2.0 - 3.7) AV Cusp: 2.4 cm (1.5 - 2.6) MV EXCURSION: 17.245 mm (> 18.000) MV EF SLOPE: 76 mm/s (70 - 150) EPSS: 0.6 cm MV E Sudarshan: 0.84 m/s MV DecT: 205 ms MV A Sudarshan: 0.86 m/s MV E/A Ratio: 0.98 FINDINGS -------- Sinus rhythm. This was a technically good study. The left ventricular size is normal. There is borderline concentric left ventricular hypertrophy. Overall left ventricular systolic function is normal with, an EF between 60 - 65 %. The right ventricle is normal in size. Normal LA size by volume 22+/-6 ml/m2. The right atrium is normal in size. There is mild aortic valve sclerosis. Mild mitral annular calcification present. There is trace mitral regurgitation. The tricuspid valve appears structurally normal. There is no pulmonic regurgitation present. The aortic root size is normal. Normal inferior vena cava with normal inspiratory collapse consistent with estimated right atrial pre ssure of 5 mmHg. There is no pericardial effusion. CONCLUSIONS -------- 1. Sinus rhythm. 2. This was a technically good study. 3. The left ventricular size is normal. 4. There is borderline concentric left ventricular hypertrophy. 5. Overall left ventricular systolic function is normal with, an EF between 60 - 65 %. 6. The right ventricle is normal in size. 7. Normal LA size by volume 22+/-6 ml/m2. 8. The right atrium is normal in size. 9. There is mild aortic valve sclerosis. 10. Mild mitral annular calcification present. 11. There is trace mitral regurgitation. 12. The tricuspid valve appears structurally normal. 13. There is no pulmonic regurgitation present. 14. The aortic root size is normal. 15. Normal inferior vena cava with normal inspiratory collapse consistent with estimated right atrial pressure of 5 mmHg. 16. There is no pericardial effusion. CLERK ENTRY LEVEL: Daphne Cruz RDCS
[2017-10-03] MEDS: METOPROLOL TARTRATE 25 MG TAB PO SCH ×2 (11:07→20:11)
--- NOTE | 2017-10-03 11:18 | US ---
EXAMINATION TYPE: US carotid duplex BILAT DATE OF EXAM: 10/03/2017 COMPARISON: NONE CLINICAL HISTORY: Ankle Brachial Index (OTF) . Pre-OP CABG EXAM MEASUREMENTS: RIGHT: Peak Systolic Velocity (PSV) cm/sec ----- Right CCA: 102.1 ----- Right ICA: 96.9 ----- Right ECA: 153.6 ICA/CCA ratio: 0.9 RIGHT: End Diastole cm/sec ----- Right CCA: 28.3 ----- Right ICA: 29.6 ----- Right ECA: 23.5 LEFT: Peak Systolic Velocity (PSV) cm/sec ----- Left CCA: 121.5 ----- Left ICA: 84.5 ----- Left ECA: 123.2 ICA/CCA ratio: 0.7 LEFT: End Diastole cm/sec ----- Left CCA: 28.0 ----- Left ICA: 25.2 ----- Left ECA: 24.5 VERTEBRALS (direction of flow): Right Vertebral: Antegrade Left Vertebral: Antegrade Rhythm: Normal Mildly elevated velocities right ECA, otherwise no significant stenosis seen IMPRESSION: 1. No hemodynamically significant stenosis within either right internal carotid artery or common hoff tid artery as well as the left external carotid artery. 2. Elevated peak systolic velocity of the right external carotid artery corresponding to a stenosis o f 50-69%.
--- NOTE | 2017-10-03 12:31 | PN ---
PROGRESS NOTE HISTORY: Mr. Ryder is a 52-year-old male who presented with non ST-segment elevation myocardial infarction. Underwent cardiac catheterization yesterday, was found to have triple- vessel coronary disease. He is doing well this morning, denying any chest pain. His breathing has been stable. He denies any dizziness or palpitation. No nausea. No cough. He continues to be on aspirin once a day, Lipitor 80 mg daily, metoprolol tartrate 25 mg twice a day. PHYSICAL EXAMINATION: Blood pressure 114/50 with a heart in the 60s. LUNGS: Clear. HEART: Regular rate and rhythm. S1, S2. No S3. Systolic murmur, ejection type, heard at the base. No diastolic murmur. ABDOMEN: Soft, nontender. EXTREMITIES: No edema. Right radial pulse is intact. LAB DATA: Lab data revealed troponin of 1.3 and 0.98, hemoglobin 14.7. IMPRESSION: 1. Status post non ST-segment elevation myocardial infarction. 2. Triple vessel disease. RECOMMENDATIONS: I have recommended to proceed with coronary artery bypass grafting. The patient will be maintained on IV heparin until the procedure is done. Depending on his progress, further recommendation will be made. He will be seen by Dr. Montiel for surgical consultation. MMODL / IJN: [id number] /
--- NOTE | 2017-10-03 12:42 | P.CNPUL ---
History of Present Illness Consult date: 10/03/17 Requesting physician: Francisco Phipps Reason for consult: other (preoperative pulmonary clearance for myocardial revascularization.) Chief complaint: chest pain History of present illness: this is a 52-year-old white male, smoker, 30 pack year smoking history,patient was admitted with constant substernal chest pain, found to have acutenon-ST elevated myocardial infarction,cardiac catheterization showed proximal LAD with a long segment of stenosis up to 99%, diagonal branch with 70-80% stenosis, eccentric 70% stenosis in the mid segment of the circumflex, proximal RCA showed 50-60% stenosis with distal RCA stenosis of 99% ejection fraction was 50% , and there was inferior apical hypokinesis.patient was seen by cardiothoracic surgery, and he is scheduled to undergo myocardial revascularization next Tuesday. Hence this consult was initiated for pulmonary clearance. Pulmonary -husain, the patient is a smoker, but he is quite active, able to walk 2-3 miles on a daily basis. No shortness of breath, no cough, no wheezing, no fever, no chills, no hemoptysis. Patient denies any history of alcohol abuse. 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 Review of Systems 14 point review of systems were obtained, please refer to pertinent positives and negatives in HPI otherwise remaining systems are negative. Past Medical History Past Medical History: Diabetes Mellitus, Myocardial Infarction (CA), Osteoarthritis (OA), Pulmonary Embolus (PE) Additional Past Medical History / Comment(s): pt states diabetes has resolved after 62 lb weight loss Last Myocardial Infarction Date:: 2 years ago History of Any Multi-Drug Resistant Organisms: None Reported Past Surgical History: Orthopedic Surgery Additional Past Surgical History / Comment(s): Right leg steel [facility], stent placed in gallbladder, as of 10-02 stent is out Past Anesthesia/Blood Transfusion Reactions: Previous Problems w/ Anesthesia Additional Past Anesthesia/Blood Transfusion Reaction / Comment(s): Stopped breathing during choly Past Psychological History: No Psychological Hx Reported Smoking Status: Current every day smoker Past Alcohol Use History: None Reported Past Drug Use History: None Reported - Past Family History Father Family Medical History: Coronary Artery Disease (CAD) Additional Family Medical History / Comment(s): Father had double coronary bypass surgery in his 50s. Mother Family Medical History: No Reported History Medications and Allergies Home Medications Medication Instructions Recorded Confirmed Type No Known Home Medications [No 10/02/17 10/02/17 History Known Home Medications] Allergies Allergy/AdvReac Type Severity Reaction Status Date / Time No Known Allergies Allergy Verified 10/02/17 07:15 Physical Exam Vitals: Vital Signs Temp Pulse Resp BP Pulse Ox 10/03/17 11:16 98 F 61 16 101/58 98 10/03/17 08:00 98 F 72 16 106/62 95 10/03/17 07:00 98 F 72 16 106/62 95 10/03/17 05:14 97.6 F 67 16 114/56 94 L 10/03/17 04:00 16 10/02/17 23:28 98.9 F 54 L 14 99/56 97 10/02/17 19:49 99.0 F 62 16 107/60 96 10/02/17 16:15 98 F 61 16 98/61 98 10/02/17 15:15 67 16 95/55 97 10/02/17 14:15 110/60 10/02/17 13:45 65 16 125/74 97 10/02/17 13:15 63 16 109/64 98 10/02/17 12:47 16 10/02/17 12:45 65 16 102/58 Intake and Output 10/02/17 10/03/17 10/03/17 22:59 06:59 14:59 Intake Total 640 360 Output Total 850 Balance -210 360 Intake: IV 400 Sodium Chloride 0.9% 1, 400 000 ml @ 100 mls/hr IV . Q10H NURY Rx#:[id number] Oral 240 360 Output: Urine 850 Other: # Voids 1 # Bowel Movements 1 Weight 98.3 kg Physical Exam: Revealed a 52-year-old white male in no distress HEENT:[Neck is supple.] [No neck masses.] [No thyromegaly.] [No JVD.] Chest: [Clear throughout, no crackles, no rhonchi, no wheezes.] Cardiac Exam: [Normal S1 and S2, no S3 gallop, no murmur.] Abdomen: [Soft, nontender, no megaly, no rebound, no guarding, normal bowel sounds.] Extremities: [No clubbing, no edema, no cyanosis.] Neurological Exam: [No focal neurologic deficit.] lymphatics: No lymphadenopathy Psychiatric: Normal mood affect and mental status examination. Results - Laboratory Findings CBC and BMP: 10/03/17 05:41 10/01/17 22:14 PT/INR, D-dimer PT 9.8 sec (9.0-12.0) 10/03/17 05:41 INR 1.0 (<1.2) 10/03/17 05:41 Abnormal lab findings: Abnormal Labs 10/01/17 10/01/17 10/02/17 22:14 22:14 05:33 APTT Glucose 206 H POC Glucose (mg/dL) AST 16 L CK-MB (CK-2) 3.0 H* 4.3 H* Troponin I 0.564 H* 1.530 H* Total Protein 6.1 L LDL Cholesterol, Calc HDL Cholesterol 10/02/17 10/02/17 10/02/17 05:33 09:40 12:49 APTT Glucose POC Glucose (mg/dL) 170 H AST CK-MB (CK-2) 3.8 H* Troponin I 1.430 H* Total Protein LDL Cholesterol, Calc 113 H HDL Cholesterol 35 L 10/02/17 10/02/17 10/02/17 12:49 17:23 23:11 APTT 38.7 H Glucose POC Glucose (mg/dL) AST CK-MB (CK-2) Troponin I 1.390 H* 0.981 H* Total Protein LDL Cholesterol, Calc HDL Cholesterol - Diagnostic Findings CT scan - chest: image reviewed (relatively unremarkable CT of the chest done on admission.) Assessment and Plan Assessment: impression: 1 acute non-ST elevation myocardial infarction 2 severe coronary artery disease as noted on the cardiac catheterization 3 history of tobacco dependence syndrome but no significant COPD symptoms based on the clinical history. However FEV1 testing is pending. 4 remote history of pulmonary embolism provoked by longer driving hours. 5 family history of premature coronary artery disease. Recommendation: I fully agree with the present treatment plan, continue incentive spirometry, patient will be instructed on the use of incentive spirometer, will review his FEV1 testing and I have reviewed the CT of the chest. Patient is considered low operative risk. Cleared for surgery as scheduled Time with Patient: Greater than 30
[2017-10-03] MEDS: HEPARIN SODIUM,PORCINE 5,000 UNIT/ML 1 ML VIAL IV PRN ×2 (14:50→18:31)
[2017-10-03] MEDS: SODIUM CHLORIDE 0.9% 1,000 ML IV SCH ×2 (14:53→20:13)
[2017-10-03 15:36] LABS: Hemoglobin A1C 6.7 % (4.0-6.0)
[2017-10-03 16:19] LABS: Hepatitis A Antibody IgM Non-Reactive (Non-Reactive); Hepatitis B Core IgM Non-Reactive (Non-Reactive)
--- NOTE | 2017-10-03 20:07 | HP ---
HISTORY AND PHYSICAL CHIEF COMPLAINT: Chest pain. HISTORY OF PRESENT ILLNESS: This 52-year-old white male was admitted several days ago with chest pain and in acute [facility]. I was not notified. 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 He is scheduled for CABG. He has not been in the office since 2013. He has a history of type 2 NIDDM and nicotine abuse. REVIEW OF SYSTEMS: He denies any headaches, syncope, palpitation, orthopnea, PND, cough, hemoptysis, abdominal pain, vomiting, melena, hematochezia, jaundice, hematuria, frequency, urgency, arthralgias, etc. Past medical history, family history, personal and social histories reveal that he is a smoker and he has had cholecystectomy. He has not been taking any medication. He drinks occasionally. PHYSICAL EXAMINATION: Blood pressure is 110/80 with a pulse of 86, respirations of 30, and he is afebrile. In general he appeared to be well developed, well nourished, in no acute distress. Skin color is normal. Skin is warm and dry. Lymph nodes are not enlarged. Head, ears, eyes, nose, mouth and throat were normal. Neck veins were not distended. Thyroid is not enlarged. Chest is clear. Cardiac exam demonstrates sinus rhythm and no murmurs or extra sounds. Abdomen is soft, nontender without any visceromegaly or masses. Extremities are normal. Neurologically he is intact. IMPRESSION: 1. Acute myocardial infarction with triple-vessel coronary artery disease. 2. History of type 2 cye-[id number] diabetes mellitus. PLAN: He is scheduled for surgery on Tuesday. MMODL / IJN: [id number] /
--- NOTE | 2017-10-03 21:01 | PN ---
PROGRESS NOTE CHIEF COMPLAINT: Chest pain and MN. HISTORY OF PRESENT ILLNESS: This gentleman is doing well. He is having no pain or shortness of breath. PHYSICAL EXAMINATION: CHEST: Clear. Cardiac exam is normal. The abdomen is soft, nontender. There are no masses. IMPRESSION: 1. Acute myocardial infarction. 2. Triple-vessel coronary artery disease. PLAN: Surgery is planned for Tuesday. MMODL / IJN: [id number] /
[2017-10-04] MEDS: HEPARIN SOD,PORK IN 0.45% NACL 25,000 UNIT in 0.45% NACL 1 500ML.BAG IV SCH ×2 (02:12→20:20)
[2017-10-04] MEDS: SODIUM CHLORIDE 0.9% 1,000 ML IV SCH ×3 (04:35→20:25)
--- NOTE | 2017-10-04 07:55 | P.PN ---
Subjective Progress Note Date: 10/04/17 Principal diagnosis: Triple-vessel coronary artery disease, non-STEMI. History of pulmonary embolism , tobacco dependence, family history of premature coronary artery disease. Hyperlipidemia with LDL 113. Previous history of diabetes mellitus, resolved after weight loss, current hemoglobin A1c 6.7%. Patient's currently sitting up in bed in no acute distress. Denies chest pain, shortness of breath. No new complaints. Objective - Vital Signs Vital signs: Vital Signs Temp 98.1 F 10/04/17 00:00 Pulse 62 10/04/17 04:00 Resp 16 10/04/17 04:00 BP 92/50 10/04/17 04:00 Pulse Ox 97 10/04/17 04:00 Intake & Output 10/03/17 10/04/17 10/04/17 18:59 06:59 18:59 Intake Total 5725.296 6115.207 Output Total 1000 Balance 1533.067 132.207 Weight 92.4 kg Intake: IV 900 Sodium Chloride 0.9% 1, 900 000 ml @ 100 mls/hr IV . Q10H NURY Rx#:[id number] Intake, IV Titration 333.067 232.207 Amount Heparin Sod,Pork in 0.45% 333.067 232.207 NaCl 25,000 unit In 0.45 % NaCl 1 500ml.bag @ 10. 173 UNITS/KG/HR 20 mls/hr IV .Q24H NURY Rx#: [id number] Oral 1200 Output: Urine 1000 Other: Voiding Method Toilet # Voids 2 1 - Constitutional General appearance: Present: cooperative, no acute distress - Respiratory Details: Lungs sounds clear to auscultation. Respirations even, nonlabored. Currently on room air with oxygen saturation 97%. - Cardiovascular Details: S1, S2 present. Regular rate and rhythm, sinus rhythm on telemetry. Palpable peripheral pulses bilaterally. No edema present. - Gastrointestinal Gastrointestinal Comment(s): Abdomen soft, nontender, nondistended. Active bowel sounds 4 quadrants. Tolerating diet. - Genitourinary Genitourinary Comment(s): Continues to void clear, yellow urine. - Integumentary Integumentary Comment(s): Skin warm, dry, pink with evidence of good perfusion. - Neurologic Neurologic: Present: CNII-XII intact - Musculoskeletal Musculoskeletal: Present: gait normal, strength equal bilaterally - Psychiatric Psychiatric: Present: A&O x's 3, appropriate affect, intact judgment & insight - Allied health notes Allied health notes reviewed: nursing - Labs CBC & Chem 7: 10/03/17 05:41 10/01/17 22:14 Labs: Abnormal Lab Results - Last 24 Hours (Table) 10/03/17 10/03/17 10/04/17 Range/Units 05:41 17:48 01:03 APTT 42.9 H 45.3 H (22.0-30.0) sec Hemoglobin A1c 6.7 H (4.0-6.0) % Microbiology - Last 24 Hours (Table) 10/02/17 20:45 Nasal Screen MRSA/MSSA (MOISÉS) - Preliminary Nasal Swab 10/02/17 19:09 Urine Culture - Preliminary Urine,Clean Catch - Imaging and Cardiology Carotid Dopplers, vein mapping, echocardiogram results reviewed. Assessment and Plan (1) Tobacco dependence Current Visit: Yes Status: Chronic Code(s): F17.200 - NICOTINE DEPENDENCE, UNSPECIFIED, UNCOMPLICATED SNOMED Code(s): 42852033 (2) History of pulmonary embolism Current Visit: No Status: Resolved Code(s): Z86.711 - PERSONAL HISTORY OF PULMONARY EMBOLISM SNOMED Code(s): 681364239 (3) Family history of premature coronary artery disease Current Visit: Yes Status: Chronic Code(s): Z82.49 - FAMILY HX OF ISCHEM HEART DIS AND OTH DIS OF THE CIRC SYS SNOMED Code(s): 288699405 (4) NSTEMI (non-ST elevated myocardial infarction) Current Visit: Yes Status: Acute Code(s): I21.4 - NON-ST ELEVATION (NSTEMI) MYOCARDIAL INFARCTION SNOMED Code(s): 324752480 (5) Chest pain Current Visit: Yes Status: Acute Code(s): R07.9 - CHEST PAIN, UNSPECIFIED SNOMED Code(s): 20777371 (6) Hyperlipidemia Current Visit: Yes Status: Chronic Code(s): E78.5 - HYPERLIPIDEMIA, UNSPECIFIED SNOMED Code(s): 97473505 (7) History of diabetes mellitus, type II Current Visit: No Status: Resolved Code(s): Z86.39 - PERSONAL HISTORY OF ENDO, NUTRITIONAL AND METABOLIC DISEASE SNOMED Code(s): 321126496 Plan: 1. Continue aspirin, statin, beta keven, heparin drip. Discontinue heparin drip tongue stitcher to the OR. 2. Preoperative testing results reviewed. Pulmonary function test pending, to be done this morning. 3. Encourage incentive spirometry use. 4. Encourage smoking cessation. 5. Increase activity, ambulate in hallway. 6. Reinforce preoperative teaching. 7. Anticipate surgery tomorrow morning, nothing by mouth after midnight. Patient is in agreement. 8. More recommendations as patient progresses. Time with Patient: Greater than 30
[2017-10-04 07:58] LABS: Basophils # (A) 0.1 k/uL (0-0.2); Basophils % (A) 1 %; Eosinophils # (A) 0.3 k/uL (0-0.7); Eosinophils % (A) 5 %; HCT 45.4 % (39.0-53.0); HGB 14.5 gm/dL (13.0-17.5); Lymphocytes # (A) 1.6 k/uL (1.0-4.8); Lymphocytes % (A) 24 %; MCH 29.3 pg (25.0-35.0); MCHC 31.9 g/dL (31.0-37.0); MCV 91.8 fL (80.0-100.0); Mean Platelet Volume 7.2; Monocytes # (A) 0.3 k/uL (0-1.0); Monocytes % (A) 5 %; Neutrophils # (A) 4.1 k/uL (1.3-7.7); Neutrophils % (A) 64 %; Platelet Count 227 k/uL (150-450); RBC 4.95 m/uL (4.30-5.90); RDW 12.3 % (11.5-15.5); WBC 6.5 k/uL (3.8-10.6)
[2017-10-04] MEDS ORDERED: SODIUM CHLORIDE 0.9% IRRIG 1,000 ML BTL IRRIGATION ONE (08:15)
[2017-10-04] MEDS ORDERED: ELECTROLYTE-R (PH 7.4) 1,000 ML IV.SOLN IV ONE (08:15)
[2017-10-04] MEDS: MUPIROCIN 2% OINT 22 GM TUBE NASAL SCH ×2 (08:20→20:31)
[2017-10-04] MEDS: ATORVASTATIN 80 MG TAB PO SCH (08:26)
[2017-10-04] MEDS: METOPROLOL TARTRATE 25 MG TAB PO SCH ×2 (08:29→20:31)
[2017-10-04] MEDS: ASPIRIN 81 MG PO SCH (08:30)
[2017-10-04 08:55] LABS: Anion Gap 9 mmol/L; Blood Urea Nitrogen 13 mg/dL (9-20); Calcium 9.1 mg/dL (8.4-10.2); Carbon Dioxide 26 mmol/L (22-30); Chloride 106 mmol/L (98-107); Glucose 161 mg/dL (74-99); Potassium 4.6 mmol/L (3.5-5.1); Sodium 141 mmol/L (137-145)
--- NOTE | 2017-10-04 13:38 | P.PN ---
Subjective Progress Note Date: 10/04/17 Principal diagnosis: Triple-vessel coronary artery disease This is a 52-year-old white male, smoker, 30 pack year smoking history,patient was admitted with constant substernal chest pain, found to have acute non-ST elevated myocardial infarction,cardiac catheterization showed proximal LAD with a long segment of stenosis up to 99%, diagonal branch with 70-80% stenosis, eccentric 70% stenosis in the mid segment of the circumflex, proximal RCA showed 50-60% stenosis with distal RCA stenosis of 99% ejection fraction was 50% , and there was inferior apical hypokinesis.patient was seen by cardiothoracic surgery, and he is scheduled to undergo myocardial revascularization next Tuesday. Hence this consult was initiated for pulmonary clearance. Pulmonary -husain, the patient is a smoker, but he is quite active, able to walk 2-3 miles on a daily basis. No shortness of breath, no cough, no wheezing, no fever, no chills, no hemoptysis. Patient denies any history of alcohol abuse. 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 The patient was seen again today 10/04/2017 in follow-up in the selective care unit. He is awake and alert in no acute distress. He's been ambulating in the hallway. He has not had any further chest discomfort, palpitations lightheadedness or dizziness. No worsening shortness of breath, cough or congestion. Maintaining good O2 saturations in the mid to upper 90s on room air. He's been afebrile. Hemodynamically stable. The plan is for coronary artery bypass grafting surgery tomorrow. Bedside spirometer revealed a FEV1 value of 76% of predicted with mild chronic obstructive pulmonary disease. Objective - Vital Signs Vital signs: Vital Signs Temp 97.3 F L 10/04/17 11:23 Pulse 62 10/04/17 11:23 Resp 16 10/04/17 11:23 BP 97/58 10/04/17 11:23 Pulse Ox 96 10/04/17 11:23 Intake & Output 10/03/17 10/04/17 10/04/17 18:59 06:59 18:59 Intake Total 4025.656 7768.207 481.875 Output Total 1000 Balance 1533.067 132.207 481.875 Weight 92.4 kg Intake: IV 900 Sodium Chloride 0.9% 1, 900 000 ml @ 100 mls/hr IV . Q10H NURY Rx#:[id number] Intake, IV Titration 333.067 232.207 241.875 Amount Heparin Sod,Pork in 0.45% 333.067 232.207 241.875 NaCl 25,000 unit In 0.45 % NaCl 1 500ml.bag @ 10. 173 UNITS/KG/HR 20 mls/hr IV .Q24H NURY Rx#: [id number] Oral 1200 240 Output: Urine 1000 Other: Voiding Method Toilet Toilet # Voids 2 1 - Exam GENERAL EXAM: Alert, active, comfortable in no apparent distress. HEAD: Normocephalic. EYES: Normal reaction of pupils, equal size. NOSE: Clear with pink turbinates. THROAT: No erythema or exudates. NECK: No masses, no JVD. CHEST: No chest wall deformity. LUNGS: Equal air entry with no crackles, wheeze, rhonchi or dullness. CVS: S1 and S2 normal with no audible murmur, regular rhythm. ABDOMEN: No hepatosplenomegaly, normal bowel sounds, no guarding or rigidity. SPINE: No scoliosis or deformity SKIN: No rashes CENTRAL NERVOUS SYSTEM: No focal deficits, tone is normal in all 4 extremities. EXTREMITIES: There is no peripheral edema. No clubbing, no cyanosis. Peripheral pulses are intact. - Labs CBC & Chem 7: 10/04/17 07:35 10/04/17 07:35 Labs: Abnormal Lab Results - Last 24 Hours (Table) 10/03/17 10/03/17 10/04/17 Range/Units 05:41 17:48 01:03 APTT 42.9 H 45.3 H (22.0-30.0) sec Glucose (74-99) mg/dL Hemoglobin A1c 6.7 H (4.0-6.0) % Crossmatch 10/04/17 10/04/17 10/04/17 Range/Units 07:35 07:35 07:35 APTT 48.6 H (22.0-30.0) sec Glucose 161 H (74-99) mg/dL Hemoglobin A1c (4.0-6.0) % Crossmatch See Detail Microbiology - Last 24 Hours (Table) 10/02/17 19:09 Urine Culture - Final Urine,Clean Catch 10/02/17 20:45 Nasal Screen MRSA/MSSA (MOISÉS) - Final Nasal Swab Staphylococcus aureus,Not MRSA Assessment and Plan Assessment: Impression: 1 acute non-ST elevation myocardial infarction 2 severe coronary artery disease as noted on the cardiac catheterization 3 history of tobacco dependence syndrome but no significant COPD symptoms based on the clinical history. FEV1 value 76% of predicted. 4 remote history of pulmonary embolism provoked by longer driving hours. 5 family history of premature coronary artery disease. Plan: The patient was seen and evaluated by Dr. Adams. His bedside spirometer results were reviewed. The patient is cleared for surgery from the pulmonary standpoint. We'll follow him throughout the immediate postoperative setting in the intensive care unit for critical care and mechanical ventilator management. He is again educated regarding the importance of the incentive spirometer and cough and deep breathing exercises. He'll continue to be up ambulating as well today. We'll continue to follow. I, the cosigning physician, have performed a history and physical examination on the patient. Lung sounds are clear. Maintaining good O2 saturations in the 90s on room air. I have discussed the assessment and plan of care with my nurse practitioner, Cate Person. I attest to the above note as dictated by her.
--- NOTE | 2017-10-04 15:29 | P.PN ---
Subjective Progress Note Date: 10/04/17 This is a 52-year-old white male, smoker, 30 pack year smoking history,patient was admitted with substernal chest pain, found to have acute non-ST elevated myocardial infarction,cardiac catheterization showed proximal LAD with a long segment of stenosis up to 99%, diagonal branch with 70-80% stenosis, eccentric 70% stenosis in the mid segment of the circumflex, proximal RCA showed 50-60% stenosis with distal RCA stenosis of 99% ejection fraction was 50%, and there was inferior apical hypokinesis. Patient was seen by cardiothoracic surgery, and he is scheduled to undergo myocardial revascularization on Tuesday. She was seen and examined this morning, denies any chest pain, breathing overall is stable. Objective - Vital Signs Vital signs: Vital Signs Temp 97.3 F L 10/04/17 11:23 Pulse 62 10/04/17 11:23 Resp 16 10/04/17 11:23 BP 97/58 10/04/17 11:23 Pulse Ox 96 10/04/17 11:23 Intake & Output 10/03/17 10/04/17 10/04/17 18:59 06:59 18:59 Intake Total 3472.552 6849.207 961.875 Output Total 1000 600 Balance 1533.067 132.207 361.875 Weight 92.4 kg Intake: IV 900 Sodium Chloride 0.9% 1, 900 000 ml @ 100 mls/hr IV . Q10H NURY Rx#:[id number] Intake, IV Titration 333.067 232.207 241.875 Amount Heparin Sod,Pork in 0.45% 333.067 232.207 241.875 NaCl 25,000 unit In 0.45 % NaCl 1 500ml.bag @ 10. 173 UNITS/KG/HR 20 mls/hr IV .Q24H NURY Rx#: [id number] Oral 1200 720 Output: Urine 1000 600 Other: Voiding Method Toilet Toilet # Voids 2 1 - Exam GENERAL EXAM: Alert, active, comfortable in no apparent distress. HEAD: Normocephalic. EYES: Normal reaction of pupils, equal size. NOSE: Clear with pink turbinates. THROAT: No erythema or exudates. NECK: No masses, no JVD. CHEST: No chest wall deformity. LUNGS: Equal air entry with no crackles, wheeze, rhonchi or dullness. CVS: S1 and S2 normal with no audible murmur, regular rhythm. ABDOMEN: No hepatosplenomegaly, normal bowel sounds, no guarding or rigidity. SPINE: No scoliosis or deformity SKIN: No rashes CENTRAL NERVOUS SYSTEM: No focal deficits, tone is normal in all 4 extremities. EXTREMITIES: There is no peripheral edema. No clubbing, no cyanosis. Peripheral pulses are intact. Right radial site clean and dry, good distal pulse. - Labs CBC & Chem 7: 10/04/17 07:35 10/04/17 07:35 Labs: Abnormal Lab Results - Last 24 Hours (Table) 10/03/17 10/03/17 10/04/17 Range/Units 05:41 17:48 01:03 APTT 42.9 H 45.3 H (22.0-30.0) sec Glucose (74-99) mg/dL Hemoglobin A1c 6.7 H (4.0-6.0) % Crossmatch 10/04/17 10/04/17 10/04/17 Range/Units 07:35 07:35 07:35 APTT 48.6 H (22.0-30.0) sec Glucose 161 H (74-99) mg/dL Hemoglobin A1c (4.0-6.0) % Crossmatch See Detail Microbiology - Last 24 Hours (Table) 10/02/17 19:09 Urine Culture - Final Urine,Clean Catch 10/02/17 20:45 Nasal Screen MRSA/MSSA (MOISÉS) - Final Nasal Swab Staphylococcus aureus,Not MRSA Assessment and Plan Plan: #1 acute non-ST elevation myocardial infarction #2 multi vessel coronary artery disease as noted on the cardiac catheterization #3 history of tobacco dependence syndrome but no significant COPD symptoms based on the clinical history. FEV1 value 76% of predicted. #4 remote history of pulmonary embolism provoked by longer driving hours. #5 family history of premature coronary artery disease. Plan: We will continue the patient on aspirin 81 mg daily, Lipitor 80 mg daily, and Metoprolol 25 mg one tablet by mouth twice a day, she was scheduled for coronary artery bypass grafting surgery on Tuesday. We will continue to follow. DNP note has been reviewed, I agree with a documented findings and plan of care. Patient was seen and examined.
[2017-10-05] MEDS ORDERED: PROTAMINE SULFATE 10 MG/ML 25 ML VIAL IV PRN (05:00)
[2017-10-05] MEDS ORDERED: PAPAVERINE 360 MG in SODIUM CHLORIDE 0.9% 90 ML IV PRN (05:00)
[2017-10-05] MEDS ORDERED: DEXTROSE 5% IN WATER 1,000 ML with POTASSIUM CHLORIDE 110 MEQ, MAGNESIUM SULFATE 16 MEQ... IV PRN ×5 (05:00)
[2017-10-05] MEDS ORDERED: ATORVASTATIN 10 MG TAB PO ONE (05:00)
[2017-10-05] MEDS ORDERED: PROTAMINE SULFATE 250 MG in EMPTY BAG 1 BAG IV PRN (05:00)
[2017-10-05] MEDS ORDERED: NITROGLYCERIN-D5W PMX 25 MG/250 ML BTL IV PRN (05:00)
[2017-10-05] MEDS ORDERED: CLEVIDIPINE BUTYRATE 25 MG in EMPTY BAG 1 BAG IV PRN (05:00)
[2017-10-05] MEDS ORDERED: ALBUMIN HUMAN 5% 500 ML in EMPTY BAG 1 BAG IVPB PRN ×6 (05:00)
[2017-10-05] MEDS ORDERED: MAGNESIUM SULFATE SYG 4.06 MEQ/ML SYRINGE IV PRN (05:00)
[2017-10-05] MEDS ORDERED: HEPARIN SODIUM,PORCINE 5,000 UNIT in SODIUM CHLORIDE 0.9% 500 ML IV PRN (05:00)
[2017-10-05] MEDS ORDERED: ceFAZolin 2,000 MG in SODIUM CHLORIDE 0.9% 30 ML IVPB PRN ×4 (05:00)
[2017-10-05] MEDS ORDERED: PHENYLEPHRINE-0.9% NACL SYG 1 MG/10 ML SYRINGE IV PRN ×4 (05:00)
[2017-10-05] MEDS ORDERED: METOPROLOL TARTRATE 12.5 MG TAB PO ONE (05:00)
[2017-10-05] MEDS ORDERED: ALBUMIN HUMAN 25% 50 ML in EMPTY BAG 1 BAG IVPB PRN (05:00)
[2017-10-05] MEDS ORDERED: NITROGLYCERIN-D5W PMX 50 MG in DEXTROSE/WATER 1 250ML.BAG IV PRN (05:00)
[2017-10-05] MEDS ORDERED: CHLORHEXIDINE GLUCONATE 15 ML CUP MUCOUS MEM PRN (05:00)
[2017-10-05] MEDS ORDERED: ceFAZolin IN SWFI 2 GM/20 ML SYRINGE IVP ONE (05:00)
[2017-10-05] MEDS ORDERED: INSULIN REGULAR 100 UNIT in SODIUM CHLORIDE 0.9% 100 ML IV PRN (05:00)
[2017-10-05] MEDS ORDERED: TRANEXAMIC ACID 2,000 MG in SODIUM CHLORIDE 0.9% 180 ML IV PRN (05:00)
[2017-10-05] MEDS ORDERED: HEPARIN SODIUM 1,000 UN/ML (10ML VL) IV PRN (05:00)
[2017-10-05] MEDS ORDERED: PHENYLEPHRINE 40 MG in SODIUM CHLORIDE 0.9% 250 ML IV PRN (05:00)
[2017-10-05] MEDS ORDERED: NOREPINEPHRIN 4 MG-0.9% NS PMX 4 MG/250 ML ML IV PRN (05:00)
[2017-10-05] MEDS ORDERED: DEXTROSE 5% IN WATER 1,000 ML with POTASSIUM CHLORIDE 25 MEQ, SODIUM CHLORIDE 4MEQ/ML V... IV PRN ×6 (05:00)
[2017-10-05] MEDS ORDERED: PROPOFOL 1,000 MG in EMPTY BAG 1 BAG IV PRN (05:00)
[2017-10-05] MEDS ORDERED: CALCIUM CHLORIDE 100 MG/ML 10 ML SYRINGE IVP PRN (05:00)
[2017-10-05] MEDS ORDERED: ASPIRIN 325 MG TAB PO ONE (05:00)
[2017-10-05] MEDS ORDERED: MANNITOL 25% 12.5 GM/50 ML VIAL IV PRN ×2 (05:00)
[2017-10-05] MEDS ORDERED: SODIUM BICARB 8.4% 50 ML SYR (1 MEQ/ML) IV PRN (05:00)
[2017-10-05] MEDS: SODIUM CHLORIDE 0.9% 1,000 ML IV SCH (05:34)
[2017-10-05 06:00] LABS: Basophils % (A) 1 %; Eosinophils # (A) 0.4 k/uL (0-0.7); Eosinophils % (A) 4 %; HCT 48.7 % (39.0-53.0); HGB 15.2 gm/dL (13.0-17.5); Lymphocytes # (A) 2.5 k/uL (1.0-4.8); Lymphocytes % (A) 31 %; MCH 29.3 pg (25.0-35.0); MCHC 31.2 g/dL (31.0-37.0); MCV 93.9 fL (80.0-100.0); Mean Platelet Volume 8.1; Monocytes # (A) 0.4 k/uL (0-1.0); Monocytes % (A) 5 %; Neutrophils # (A) 4.6 k/uL (1.3-7.7); Neutrophils % (A) 57 %; Platelet Count 255 k/uL (150-450); RBC 5.19 m/uL (4.30-5.90); RDW 14.5 % (11.5-15.5); WBC 8.1 k/uL (3.8-10.6)
[2017-10-05] MEDS ORDERED: IV FLUID CONTINUATION 500 ML IV ONE (06:10)
[2017-10-05] MEDS ORDERED: LACTATED RINGERS 1,000 ML IV SCH (06:13)
--- NOTE | 2017-10-05 06:20 | PN ---
PROGRESS NOTE DATE OF SERVICE: 10/04/2017. CHIEF COMPLAINT: Acute VA. HISTORY OF PRESENT ILLNESS: This gentleman is stable and awaits his surgery tomorrow. PHYSICAL EXAM: Chest is clear. Cardiac exam is normal. Vital signs are normal. IMPRESSION: 1. Coronary artery disease. 2. Type 2 non-insulin dependent diabetes mellitus. PLAN: CABG tomorrow. MMODL / IJN: [id number] /
[2017-10-05] MEDS ORDERED: VECURONIUM 10 MG VIAL IV ONE (08:15)
[2017-10-05] MEDS ORDERED: TRANEXAMIC ACID 1,000 MG/10 ML VIAL ONE (08:15)
[2017-10-05] MEDS ORDERED: PROTAMINE SULFATE 10 MG/ML 25 ML VIAL IV ONE (08:15)
[2017-10-05] MEDS ORDERED: POTASSIUM CHLORIDE OPEN HEART 20 MEQ/50 ML BAG IVPB ONE (08:15)
[2017-10-05] MEDS ORDERED: SODIUM CHLORIDE 0.9% 250 ML BAG ONE (08:15)
[2017-10-05] MEDS ORDERED: MIDAZOLAM 2 MG/2 ML VIAL ONE (08:15)
[2017-10-05] MEDS ORDERED: MAGNESIUM SULFATE 4 MEQ/ML 2 ML VIAL ONE (08:15)
[2017-10-05] MEDS ORDERED: LIDOCAINE 2% SYG (PF) 100 MG/5 ML ONE (08:15)
[2017-10-05] MEDS ORDERED: fentaNYL (PF) 50 MCG/ML 2 ML AMP ONE (08:15)
[2017-10-05] MEDS ORDERED: HEPARIN SODIUM,PORCINE 10,000 UNIT/ML 1 ML VIAL ONE (08:15)
[2017-10-05] MEDS ORDERED: fentaNYL (PF) 50 MCG/ML 50 ML VIAL ONE (08:15)
[2017-10-05] MEDS ORDERED: PROPOFOL 10 MG/ML 20 ML VIAL IV ONE (08:15)
[2017-10-05 09:01] LABS: Glucose,Whole Blood 140 mg/dL (75-99)
[2017-10-05] MEDS: ceFAZolin 1,000 MG in SODIUM CHLORIDE 0.9% IRRIGATIO 1,000 ML IRRIGATION PRN ×2 (09:53→13:22)
--- NOTE | 2017-10-05 10:22 | P.VSCSTY ---
Greater Saphenous Vein Mapping This is bilateral lower extremity greater saphenous vein mapping. Date of service 10/03/2017 Vein quality and ultrasound appearance normal. Vein size groin right 6.2 x 6.0 groin left 7.3 x 8.2 High thigh right 4.4 x 4.9 high thigh left 5.4 x 5.4 Mid thigh right 3.2 x 3.9 mid thigh left 4.1 x 5.2 Above-knee right 3.4 x 3.9 above- knee left 4.7 x 5.3 Below knee right 3.3 x 3.3 below-knee left 3.4 x 4.0 Mid calf right 2.9 x 2.9 mid calf left 3.3 x 3.7 Ankle right 4.4 x 5.3 ankle left 4.3 x 4.4 Impression usable bilateral greater saphenous vein.
--- NOTE | 2017-10-05 10:23 | P.ARTDOP ---
Arterial Doppler LOWER EXTREMITY ARTERIAL DOPPLER: DATE OF SERVICE: 10/03/2017 Reason for study: Pre-CABG. Doppler waveforms: Multiphasic bilaterally throughout. Pulse volume recording: []. Pressure gradients: None. Ankle-brachial indices: Greater than 1 bilaterally. Toe pressures: [] on the right, [] on the left Impression: Normal study.
[2017-10-05 10:40] LABS: Glucose,Whole Blood 156 mg/dL (75-99)
[2017-10-05 11:21] LABS: Glucose,Whole Blood 152 mg/dL (75-99)
[2017-10-05 11:54] LABS: Glucose,Whole Blood 242 mg/dL (75-99)
[2017-10-05 11:54] LABS: Glucose,Whole Blood 239 mg/dL (75-99)
[2017-10-05 12:11] LABS: Glucose,Whole Blood 250 mg/dL (75-99)
--- NOTE | 2017-10-05 12:36 | PN ---
PROGRESS NOTE DATE OF SERVICE: 10/05/2017. CHIEF COMPLAINT: Acute MA. HISTORY OF PRESENT ILLNESS: This gentleman is stable, doing well, and going to the operating room today for his coronary artery bypass graft. PHYSICAL EXAM: Unchanged. IMPRESSION: Acute myocardial infarction with triple-vessel coronary artery disease. PLAN: Coronary artery bypass graft today. MMODL / IJN: [id number] /
[2017-10-05 12:44] LABS: Glucose,Whole Blood 262 mg/dL (75-99)
[2017-10-05 13:36] LABS: Glucose,Whole Blood 198 mg/dL (75-99)
[2017-10-05] MEDS ORDERED: CLEVIDIPINE BUTYRATE 25 MG in EMPTY BAG 1 BAG IV SCH (14:29)
[2017-10-05] MEDS ORDERED: Phosphorus Replacement Protoco 1 EACH MISC MISCELLANE PRN (14:29)
[2017-10-05] MEDS ORDERED: ALBUMIN HUMAN 5% 250 ML in EMPTY BAG 1 BAG IVPB PRN (14:29)
[2017-10-05] MEDS ORDERED: NOREPINEPHRINE 4 MG in SODIUM CHLORIDE 0.9% 250 ML IV SCH (14:29)
[2017-10-05] MEDS ORDERED: CALCIUM GLUCONATE 2,000 MG in SODIUM CHLORIDE 0.9% 100 ML IVPB PRN (14:29)
[2017-10-05] MEDS ORDERED: NITROGLYCERIN-D5W PMX 50 MG in DEXTROSE/WATER 1 250ML.BAG IV SCH (14:29)
[2017-10-05] MEDS ORDERED: Potassium Replacement Protocol 1 EACH MISC MISCELLANE PRN (14:29)
[2017-10-05] MEDS ORDERED: METOCLOPRAMIDE 5 MG/ML 2 ML VIAL IVP PRN (14:29)
[2017-10-05] MEDS ORDERED: ONDANSETRON 4 MG/2 ML VIAL IVP PRN (14:29)
[2017-10-05] MEDS ORDERED: Magnesium Replacement Protocol 1 EACH MISC MISCELLANE PRN (14:29)
[2017-10-05] MEDS ORDERED: BENZOCAINE/MENTHOL LOZENG 1 EACH LOZENGE MUCOUS MEM PRN (14:29)
[2017-10-05] MEDS ORDERED: CLEVIDIPINE BUTYRATE 25 MG/50 ML VIAL IV ONE (14:54)
[2017-10-05] MEDS: PROPOFOL 1,000 MG in EMPTY BAG 1 BAG IV SCH ×2 (15:00→17:01)
[2017-10-05 15:08] LABS: Glucose,Whole Blood 94 mg/dL (75-99)
[2017-10-05 15:10] LABS: Basophils % (A) 0 %; Eosinophils % (A) 1 %; HCT 33.8 % (39.0-53.0); Lymphocytes # (A) 1.1 k/uL (1.0-4.8); Lymphocytes % (A) 14 %; MCH 29.6 pg (25.0-35.0); MCHC 31.9 g/dL (31.0-37.0); MCV 92.8 fL (80.0-100.0); Mean Platelet Volume 9.8; Monocytes # (A) 0.3 k/uL (0-1.0); Monocytes % (A) 4 %; Neutrophils # (A) 6.4 k/uL (1.3-7.7); Neutrophils % (A) 81 %; Platelet Count 147 k/uL (150-450); RBC 3.64 m/uL (4.30-5.90); RDW 13.5 % (11.5-15.5); WBC 7.9 k/uL (3.8-10.6)
--- NOTE | 2017-10-05 15:15 | P.PN ---
Subjective Progress Note Date: 10/05/17 Principal diagnosis: Triple-vessel coronary artery disease This is a 52-year-old white male, smoker, 30 pack year smoking history,patient was admitted with constant substernal chest pain, found to have acute non-ST elevated myocardial infarction,cardiac catheterization showed proximal LAD with a long segment of stenosis up to 99%, diagonal branch with 70-80% stenosis, eccentric 70% stenosis in the mid segment of the circumflex, proximal RCA showed 50-60% stenosis with distal RCA stenosis of 99% ejection fraction was 50% , and there was inferior apical hypokinesis.patient was seen by cardiothoracic surgery, and he is scheduled to undergo myocardial revascularization next Tuesday. Hence this consult was initiated for pulmonary clearance. Pulmonary -husain, the patient is a smoker, but he is quite active, able to walk 2-3 miles on a daily basis. No shortness of breath, no cough, no wheezing, no fever, no chills, no hemoptysis. Patient denies any history of alcohol abuse. 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 The patient was seen again today 10/04/2017 in follow-up in the selective care unit. He is awake and alert in no acute distress. He's been ambulating in the hallway. He has not had any further chest discomfort, palpitations lightheadedness or dizziness. No worsening shortness of breath, cough or congestion. Maintaining good O2 saturations in the mid to upper 90s on room air. He's been afebrile. Hemodynamically stable. The plan is for coronary artery bypass grafting surgery tomorrow. Bedside spirometer revealed a FEV1 value of 76% of predicted with mild chronic obstructive pulmonary disease. The patient is seen again today 10/05/2017 in the immediate postoperative period in the intensive care unit. He did undergo a coronary artery bypass grafting including a CASTREJON to the LAD, saphenous vein grafts to the diagonal and RCA. He is currently intubated on mechanical ventilator. Vent settings are assist control of 12, tidal volume 600, FiO2 100% and a PEEP of 5. He is currently sedated on propofol at 30 mcg/kg/m. He is also on nitroglycerin at 5 mcg/m and insulin drip at 5 units per hour. He has been weaned off levo fed. He has a lactated Ringer's at 50 MLS per hour. Current vital signs with a blood pressure 103/49, PA pressures 23/15, CVP 10, cardiac output 9.9, cardiac index 4.5. He has mediastinal chest tubes 2 along with a left pleural chest tube. Right internal jugular Hamilton-Brooklynn catheter in place. Chest x-ray, ABGs and labs are pending. Objective - Vital Signs Vital signs: Vital Signs Temp 97.9 F 10/05/17 06:15 Pulse 62 10/05/17 06:15 Resp 16 10/05/17 06:15 BP 103/62 10/05/17 06:15 Pulse Ox 95 10/05/17 06:15 Intake & Output 10/04/17 10/05/17 10/05/17 18:59 06:59 18:59 Intake Total 1460.000 800 33 Output Total 120 374 8169 Balance 860.000 300 -1817 Weight 92.8 kg Intake: IV 800 33 Sodium Chloride 0.9% 1, 800 000 ml @ 100 mls/hr IV . Q10H NURY Rx#:[id number] Intake, IV Titration 500.000 Amount Heparin Sod,Pork in 0.45% 500.000 NaCl 25,000 unit In 0.45 % NaCl 1 500ml.bag @ 10. 173 UNITS/KG/HR 20 mls/hr IV .Q24H NURY Rx#: [id number] Oral 960 Output: Urine 600 500 950 Estimated Blood Loss 900 Other: Voiding Method Toilet Toilet # Voids 1 - Exam GENERAL EXAM: Intubated, sedated. HEAD: Normocephalic. EYES: Sluggish reaction of pupils, equal size. NOSE: Clear with pink turbinates. THROAT: Oral endotracheal and gastric tube secured in place. No erythema or exudates. NECK: No masses, no JVD. Right Hamilton-Brooklynn catheter in place. CHEST: Sternal dressing dry and intact. LUNGS: Equal air entry with no crackles, wheeze, rhonchi or dullness. CVS: S1 and S2 normal with no audible murmur, regular rhythm. Positive rub. ABDOMEN: No hepatosplenomegaly, soft. SPINE: No scoliosis or deformity SKIN: No rashes CENTRAL NERVOUS SYSTEM: Sedated EXTREMITIES: Bilateral Aguila wraps to lower extremities. There is trace peripheral edema. No clubbing, no cyanosis. Peripheral pulses are intact. - Labs CBC & Chem 7: 10/05/17 05:43 10/04/17 07:35 Labs: Abnormal Lab Results - Last 24 Hours (Table) 10/04/17 10/05/17 10/05/17 Range/Units 07:35 08:55 10:26 POC Glucose (mg/dL) 140 H 156 H (75-99) mg/dL Crossmatch See Detail 10/05/17 10/05/17 10/05/17 Range/Units 11:07 11:38 11:40 POC Glucose (mg/dL) 152 H 242 H 239 H (75-99) mg/dL Crossmatch 10/05/17 10/05/17 10/05/17 Range/Units 12:08 12:40 13:16 POC Glucose (mg/dL) 250 H 262 H 198 H (75-99) mg/dL Crossmatch Microbiology - Last 24 Hours (Table) 10/02/17 19:09 Urine Culture - Final Urine,Clean Catch 10/02/17 20:45 Nasal Screen MRSA/MSSA (MOISÉS) - Final Nasal Swab Staphylococcus aureus,Not MRSA Assessment and Plan Assessment: Impression: 1 Acute non-ST elevation myocardial infarction, status post coronary artery bypass grafting utilizing a CASTREJON to the LAD, saphenous vein grafts to the RCA and diagonal. Postoperative day #0. 2 Severe coronary artery disease as noted on the cardiac catheterization 3 History of tobacco dependence syndrome but no significant COPD symptoms based on the clinical history. FEV1 value 76% of predicted. 4 Remote history of pulmonary embolism provoked by longer driving hours. 5 Family history of premature coronary artery disease. Plan: The patient was seen and evaluated by Dr. Adams. His chest x-ray was reviewed. No significant abnormalities. Endotracheal tube in good position. Chest tubes in place. Hamilton-Brooklynn in place. ABGs are pending. We'll make further adjustments as needed. Plan for early extubation protocol as the patient remains quite stable. Continue bronchodilators. We'll continue to monitor him here closely in the intensive care unit. We'll continue to follow make further recommendations based on his clinical status. Critical care time 36 minutes. I, the cosigning physician, have performed a history and physical examination on the patient. Lung sounds are clear. Maintaining good O2 saturations in the 90s on 100% FiO2 currently intubated on mechanical ventilator. I have discussed the assessment and plan of care with my nurse practitioner, Cate Person. I attest to the above note as dictated by her. Time with Patient: Greater than 30
[2017-10-05 15:19] LABS: INR 1.1 (<1.2); Partial Thromboplastin Time 25.5 sec (22.0-30.0); Prothrombin Time 10.7 sec (9.0-12.0)
[2017-10-05 15:20] LABS: HGB 10.8 gm/dL (13.0-17.5)
[2017-10-05 15:30] LABS: Ionized Calcium 5.1 mg/dL (4.5-5.3)
[2017-10-05 15:39] LABS: ALT 29 U/L (21-72); AST 22 U/L (17-59); Albumin 3.2 g/dL (3.5-5.0); Alkaline Phosphatase 53 U/L (38-126); Anion Gap 6 mmol/L; Blood Urea Nitrogen 10 mg/dL (9-20); Calcium 8.3 mg/dL (8.4-10.2); Carbon Dioxide 26 mmol/L (22-30); Chloride 108 mmol/L (98-107); Glucose 93 mg/dL (74-99); Magnesium 2.4 mg/dL (1.6-2.3); Potassium 4.3 mmol/L (3.5-5.1); Sodium 140 mmol/L (137-145); Total Bilirubin 0.4 mg/dL (0.2-1.3)
[2017-10-05] MEDS: IPRATROPIUM-ALBUTEROL 3 ML NEB INHALATION SCH ×2 (15:57→20:17)
[2017-10-05 16:12] LABS: Glucose,Whole Blood 100 mg/dL (75-99)
--- NOTE | 2017-10-05 16:12 | PN ---
PROGRESS NOTE Mr. Ryder is a 52-year-old male who presented with non ST-segment elevation myocardial infarction, underwent cardiac catheterization, was found to have severe coronary disease, underwent coronary bypass grafting today with CASTREJON to LAD, saphenous vein graft to diagonal branch and saphenous vein graft to the PDA. He is intubated and sedated in the ICU, hemodynamically stable, in sinus mechanism. PHYSICAL EXAMINATION: Blood pressure 105/60 with a heart rate in the 60s. LUNGS: Clear anteriorly. Heart regular rate and rhythm S1, S2 with a rub. No gallop. ABDOMEN: Soft, nontender. EXTREMITIES: Aguila wrapping in place. IMPRESSION: 1. Status post coronary artery bypass grafting appears to be stable. 2. History of tobacco use. 3. Remote history of pulmonary embolism. RECOMMENDATION: From the cardiac standpoint, we will continue routine postoperative care. Hopefully he can be weaned and extubated soon and then we will resume his statin and beta keven orally. MMODL / IJN: [id number] /
[2017-10-05 16:18] LABS: ABG Base Excess -1.2 mmol/L; ABG HCO3 23 mmol/L (21-25); ABG PCO2 42 mmHg (35-45); ABG PH 7.37 (7.35-7.45); ABG PO2 206 mmHg (83-108); ABG TCO2 25 mmol/L (19-24)
[2017-10-05] MEDS: ceFAZolin IN SWFI 2 GM/20 ML SYRINGE IVP SCH ×2 (16:49→23:10)
[2017-10-05] MEDS: LACTATED RINGERS 1,000 ML IV SCH (16:50)
[2017-10-05] MEDS: ACETAMINOPHEN IV (For NPO) 1,000 MG in EMPTY BAG 1 BAG IVPB SCH ×2 (16:51→23:10)
[2017-10-05] MEDS: INSULIN REGULAR 100 UNIT in SODIUM CHLORIDE 0.9% 100 ML IV SCH (16:54)
[2017-10-05 17:06] LABS: Glucose,Whole Blood 125 mg/dL (75-99)
--- NOTE | 2017-10-05 17:16 | XR ---
EXAMINATION TYPE: XR chest 1V portable DATE OF EXAM: 10/05/2017 COMPARISON: Prior chest 10/01/2017 HISTORY: Postop cardiac surgery TECHNIQUE: Single frontal view of the chest is obtained. FINDINGS: Patient is post median sternotomy. Endotracheal tube and NG tube, left chest tube, right j ugular central venous catheter and she are overlying appropriate positions. Median sternal drain is i n place. There are overlying cardiac leads and tubing. No sizable pneumothorax or pleural effusion. P atient is rotated, basilar atelectatic changes are present. Heart is enlarged. IMPRESSION: Lower lobe atelectasis, satisfactory postoperative chest x-ray
[2017-10-05] MEDS: MORPHINE SULFATE 2 MG/ML SYRINGE IVP PRN ×2 (17:19→20:10)
[2017-10-05 17:56] LABS: Glucose,Whole Blood 145 mg/dL (75-99)
[2017-10-05 18:11] LABS: Basophils % (A) 0 %; Eosinophils % (A) 0 %; HCT 36.9 % (39.0-53.0); HGB 11.9 gm/dL (13.0-17.5); Lymphocytes # (A) 0.7 k/uL (1.0-4.8); Lymphocytes % (A) 7 %; MCH 29.2 pg (25.0-35.0); MCHC 32.3 g/dL (31.0-37.0); MCV 90.6 fL (80.0-100.0); Mean Platelet Volume 8.5; Monocytes # (A) 0.5 k/uL (0-1.0); Monocytes % (A) 4 %; Neutrophils # (A) 9.5 k/uL (1.3-7.7); Neutrophils % (A) 88 %; Platelet Count 178 k/uL (150-450); RBC 4.07 m/uL (4.30-5.90); RDW 13.2 % (11.5-15.5); WBC 10.7 k/uL (3.8-10.6)
[2017-10-05] MEDS ORDERED: ARTIFICIAL TEARS-HYPROMELLOSE DROPS 15 ML BTL BOTH EYES PRN (18:37)
[2017-10-05 18:53] LABS: Glucose,Whole Blood 143 mg/dL (75-99)
[2017-10-05] MEDS ORDERED: ARTIFICIAL TEARS OINTMENT 3.5 GM TUBE BOTH EYES PRN (19:43)
[2017-10-05 19:52] LABS: Glucose,Whole Blood 130 mg/dL (75-99)
[2017-10-05 20:08] LABS: Basophils % (A) 0 %; Eosinophils % (A) 0 %; HCT 35.5 % (39.0-53.0); HGB 11.8 gm/dL (13.0-17.5); Lymphocytes # (A) 0.6 k/uL (1.0-4.8); Lymphocytes % (A) 6 %; MCH 29.9 pg (25.0-35.0); MCHC 33.3 g/dL (31.0-37.0); MCV 89.9 fL (80.0-100.0); Mean Platelet Volume 7.9; Monocytes # (A) 0.4 k/uL (0-1.0); Monocytes % (A) 4 %; Neutrophils # (A) 9.1 k/uL (1.3-7.7); Neutrophils % (A) 90 %; Platelet Count 199 k/uL (150-450); RBC 3.95 m/uL (4.30-5.90); RDW 12.3 % (11.5-15.5); WBC 10.1 k/uL (3.8-10.6)
[2017-10-05 21:08] LABS: Glucose,Whole Blood 127 mg/dL (75-99)
[2017-10-05 22:18] LABS: Glucose,Whole Blood 127 mg/dL (75-99)
[2017-10-05 23:09] LABS: Glucose,Whole Blood 112 mg/dL (75-99)
[2017-10-05] MEDS: MUPIROCIN 2% OINT 22 GM TUBE NASAL SCH (23:11)
[2017-10-05] MEDS: HEPARIN SODIUM,PORCINE 5,000 UNIT/ML 1 ML VIAL SQ SCH (23:12)
[2017-10-06 00:03] LABS: Glucose,Whole Blood 132 mg/dL (75-99)
[2017-10-06 01:02] LABS: Glucose,Whole Blood 139 mg/dL (75-99)
[2017-10-06 02:11] LABS: Glucose,Whole Blood 135 mg/dL (75-99)
[2017-10-06 02:59] LABS: Glucose,Whole Blood 119 mg/dL (75-99)
[2017-10-06 04:07] LABS: Glucose,Whole Blood 122 mg/dL (75-99)
[2017-10-06 04:27] LABS: Basophils % (A) 0 %; Eosinophils % (A) 0 %; HCT 32.3 % (39.0-53.0); HGB 11.8 gm/dL (13.0-17.5); Lymphocytes # (A) 1.3 k/uL (1.0-4.8); Lymphocytes % (A) 16 %; MCHC 36.6 g/dL (31.0-37.0); Mean Platelet Volume 8.1; Monocytes # (A) 0.4 k/uL (0-1.0); Monocytes % (A) 5 %; Neutrophils # (A) 6.7 k/uL (1.3-7.7); Neutrophils % (A) 78 %; Platelet Count 187 k/uL (150-450); RBC 4.08 m/uL (4.30-5.90); RDW 13.9 % (11.5-15.5); WBC 8.6 k/uL (3.8-10.6)
[2017-10-06 04:30] LABS: Ionized Calcium 4.8 mg/dL (4.5-5.3)
[2017-10-06 04:35] LABS: MCV 79.2 fL (80.0-100.0)
[2017-10-06 04:40] LABS: ALT 32 U/L (21-72); AST 26 U/L (17-59); Albumin 3.2 g/dL (3.5-5.0); Alkaline Phosphatase 61 U/L (38-126); Anion Gap 8 mmol/L; Blood Urea Nitrogen 10 mg/dL (9-20); Calcium 8.6 mg/dL (8.4-10.2); Carbon Dioxide 27 mmol/L (22-30); Chloride 101 mmol/L (98-107); Glucose 122 mg/dL (74-99); Potassium 4.2 mmol/L (3.5-5.1); Sodium 136 mmol/L (137-145); Total Bilirubin 0.7 mg/dL (0.2-1.3); Total Protein 5.2 g/dL (6.3-8.2)
[2017-10-06 04:41] LABS: INR 1.2 (<1.2); Prothrombin Time 11.4 sec (9.0-12.0)
[2017-10-06] MEDS: ACETAMINOPHEN IV (For NPO) 1,000 MG in EMPTY BAG 1 BAG IVPB SCH ×3 (05:23→17:49)
--- NOTE | 2017-10-06 05:27 | OP ---
OPERATIVE REPORT DATE OF SERVICE: 10/05/2017 PREOPERATIVE DIAGNOSIS: Coronary artery disease. POSTOPERATIVE DIAGNOSIS: Coronary artery disease. PROCEDURE: 1. Coronary artery bypass grafting x3 vessels (left internal mammary artery to left anterior descending artery, saphenous vein graft to diagonal artery, saphenous vein graft to right coronary artery stent). 2. Endoscopic vein harvest left greater saphenous vein. 3. Epiaortic ultrasound. 4. Transesophageal echocardiogram. SURGEON: Cuong Montiel MD. PECAN GATHERER: 1. LEORA Ferris. 2. Bi Mcnair NP. ANESTHESIA: General. SPECIMENS: None. COMPLICATIONS: None. INDICATION: The patient is a 52-year-old male with a past medical history significant for diabetes mellitus, pulmonary embolus, myocardial infarction, and tobacco use who presented to the hospital with chest pain. Cardiac catheterization revealed multivessel coronary artery disease. Coronary artery bypass was recommended. The risks, benefits, alternatives of procedure were discussed with the patient. All questions were answered. Consent was obtained. FINDINGS: The left internal mammary artery was a small vessel but had brisk flow. Saphenous vein was a good conduit. The LAD measured 1.3 mm. The diagonal artery measured 1.3 mm. The right coronary artery measured 1.3 mm. PROCEDURE: The patient was taken to the operating room and placed supine on the operating room table. After induction of general anesthesia, he was prepped and draped in the usual sterile fashion. Preoperative transesophageal echocardiogram revealed a preserved ejection fraction with trace mitral regurgitation. A median sternotomy was performed. The left internal mammary artery was harvested in the standard fashion taking care to clip all branches. Of note, the vessel was small in diameter. Intravenous heparin was administered. The vessel was transected distally revealing brisk flow. Simultaneously greater saphenous vein was harvested from the left lower extremity using endoscopic technique. All branches were tied. The vein was a good conduit. A pericardial cradle was created. The ascending aorta was palpated and appeared to be free of disease. Epiaortic ultrasound was then performed. Again, no significant calcific disease was noted, though there was some atheromatous disease. An arterial cannula was placed in the distal ascending aorta. A venous cannula was placed through the right atrial appendage and directed into the IVC. Both antegrade and retrograde catheters were placed as well. The patient was then placed on cardiopulmonary bypass with good decompression of the heart. The aortic cross-clamp was applied. Cold blood potassium cardioplegia was delivered in both antegrade and retrograde fashion to achieve arrest of the heart. Of note, cardioplegia was delivered every 15 to 20 minutes while the patient remained under crossclamp. We began by inspecting the inferior wall. The posterior descending artery and posterior lateral branch were both identified and appeared to be too small for bypass. The distal right coronary artery was identified deep within the fat. It was dissected free. A soft spot for bypass was noted. Using saphenous vein in a reverse fashion, an end-to-side anastomosis was created. This was performed using running 7-0 Prolene suture. The graft was hemostatic and had good flow. Next the diagonal artery was identified. It was dissected free. It was somewhat small, but appeared to be amenable for bypass. An arteriotomy was created. Using saphenous vein in a reverse fashion, an end-to-side anastomosis was created. This was performed with using running 7-0 Prolene suture. The graft was hemostatic and had good flow. Finally the LAD was identified. It appeared to be deep within the fat proximally. It was dissected free at a mid to distal location. A small arteriotomy was created. Using the left internal mammary artery, an end-to-side anastomosis was created. This was performed using running 8-0 Prolene suture. The graft was hemostatic. The mammary pedicle was then tacked down to the anterior surface of the heart. Attention was then turned to the proximal anastomoses. These were performed in an end- to-side fashion using running 6-0 Prolene sutures. One liter of warm blood was delivered in a retrograde fashion. Both lidocaine and magnesium were administered as well. The aortic cross-clamp was removed. The grafts were de-aired in the standard fashion. Temporary atrial and ventricular pacing wires were placed and brought through the skin. The retrograde catheter was removed. The patient was then weaned off cardiopulmonary bypass. He without difficulty. Followup transesophageal cardiogram revealed preserved ejection fraction and no change in his mitral regurgitation. Protamine was administered. There were no adverse reactions. All remaining cannulas were removed. The mediastinum was copiously irrigated with warm antibiotic solution. Surgical sites were inspected and appeared to be hemostatic. Reinforcement sutures were placed as needed. Soft tissues were reapproximated over the ascending aorta as well as over the apex of the heart. A straight 32-Italian chest tube was placed directly in the left pleural space. Two additional straight 32- Italian chest tubes were placed directly into the mediastinum. These were all secured to the skin using sutures. The sternum was then reapproximated using stainless steel wires in inferior fashion. The remainder of the wound was closed in layers. A sterile dressing was applied. The patient appeared to tolerate the procedure well. There was no immediate complications. He returned to the CCU in critical but stable condition. MMJORJE / ANDREWN: [id number] / MTDD
[2017-10-06 06:07] LABS: Glucose,Whole Blood 131 mg/dL (75-99)
[2017-10-06 07:02] LABS: Glucose,Whole Blood 143 mg/dL (75-99)
[2017-10-06 08:07] LABS: Glucose,Whole Blood 132 mg/dL (75-99)
[2017-10-06] MEDS: HEPARIN SODIUM,PORCINE 5,000 UNIT/ML 1 ML VIAL SQ SCH ×2 (08:11→16:31)
[2017-10-06] MEDS: METOPROLOL TARTRATE 12.5 MG TAB PO SCH ×2 (08:12→20:03)
[2017-10-06] MEDS: ATORVASTATIN 40 MG TAB PO SCH (08:12)
[2017-10-06] MEDS: ASPIRIN 325 MG TAB PO SCH (08:12)
[2017-10-06] MEDS: CLOPIDOGREL 75 MG TAB PO SCH (08:12)
[2017-10-06] MEDS: MUPIROCIN 2% OINT 22 GM TUBE NASAL SCH ×2 (08:13→20:03)
[2017-10-06] MEDS ORDERED: PANTOPRAZOLE 40 MG/10 ML VIAL IVP SCH (09:00)
--- NOTE | 2017-10-06 09:00 | P.PN ---
Subjective Progress Note Date: 10/06/17 Principal diagnosis: Triple-vessel coronary artery disease, non-STEMI. History of pulmonary embolism , tobacco dependence, family history of premature coronary artery disease with his father having open heart surgery in his 50s. Hyperlipidemia with LDL 113. Previous history of diabetes mellitus, resolved after weight loss, current hemoglobin A1c 6.7%. Preoperative nasal swab positive for MSSA. POD #1 urgent coronary artery bypass grafting 3 vessels, left internal mammary artery to the left anterior descending artery, reverse saphenous vein graft to the diagonal artery, reverse saphenous vein graft to the right coronary artery, endoscopic vein harvest of the left greater saphenous vein, epi-aortic ultrasound, and intraoperative transesophageal echocardiogram. Patient is currently sitting up in the recliner in no acute distress. Denies chest pain, shortness of breath. He was successfully extubated yesterday and 1730. Currently on no vasoactive IV medications. Objective - Vital Signs Vital signs: Vital Signs Temp 99.3 F 10/06/17 06:00 Pulse 89 10/06/17 08:00 Resp 21 10/06/17 08:00 BP 100/69 10/06/17 08:00 Pulse Ox 98 10/06/17 08:00 Intake & Output 10/05/17 10/06/17 10/06/17 18:59 06:59 18:59 Intake Total 353.475 996.496 86 Output Total 3556 1300 46 Balance -3202.525 -303.504 40 Weight 94.8 kg Intake: IV 290.5 938.5 86 ACETAMINOPHEN IV (For NPO 200 ) 1,000 mg In Empty Bag 1 bag @ 400 mls/hr IVPB Q6HR NURY Rx#:[id number] CO/CI 80 30 Lactated Ringers 1,000 ml 250 600 50 @ 20 mls/hr IV .Q24H NURY Rx#:[id number] Nitroglycerin-D5w Pmx 50 7.5 16.5 mg In Dextrose/Water 1 250ml.bag @ 5 MCG/MIN 1.5 mls/hr IV .Q24H PRN Rx#: [id number] Pressure Bag 42 6 Intake, IV Titration 62.975 57.996 Amount Clevidipine Butyrate 25 16 mg In Empty Bag 1 bag @ 1 MG/HR 2 mls/hr IV .Q24H NURY Rx#:[id number] Insulin Regular 100 unit 2.003 10.051 In Sodium Chloride 0.9% 100 ml @ Per Protocol IV .Q0M NURY Rx#:[id number] Propofol 1,000 mg In 44.972 47.945 Empty Bag 1 bag @ Titrate IV .Q0M NURY Rx#: [id number] Output: Chest Tube Drainage 596 370 26 Chest Tube Mediastinal 526 260 20 left pleural chest tube 70 110 6 Urine 2060 930 20 Estimated Blood Loss 900 Other: Voiding Method Indwelling Catheter Indwelling Catheter # Voids 1 ABP, PAP, CO, CI - Last Documented Arterial Blood Pressure 121/105 Pulmonary Artery Pressure 21/12 Cardiac Output 6.1 Cardiac Index 2.8 - Constitutional General appearance: Present: cooperative, no acute distress - Respiratory Details: Lungs sounds diminished bilaterally. Respirations even, nonlabored. Currently on 3 L nasal cannula with oxygen saturation 98%. Able to achieve 1250 mL on his incentive spirometry. Mediastinal chest tube to -20 cm wall suction, 120 mL serosanguineous drainage overnight, 580 mL since surgery. Left pleural chest tube to -20 cm wall suction, 70 mL serous drainage overnight, 190 mL since surgery. No air leaks present. Chest x-ray reviewed. - Cardiovascular Details: S1, S2 present, positive rub. Regular rate and rhythm, sinus rhythm on telemetry. A/V epicardial pacemaker wires present, connected to generator, generator on standby. Sternum stable. Palpable peripheral pulses bilaterally. No edema present. Right internal jugular Eastlake/Cordis present. Last CO/CI 6.0 /2.7 on no inotropes. Heart hugger in place with patient demonstrating appropriate use. Antiembolism stockings/SCDs present. - Gastrointestinal Gastrointestinal Comment(s): Abdomen soft, nontender, nondistended. Hypoactive bowel sounds present 4 quadrants. Tolerating clear liquids. Denies flatus. - Genitourinary Genitourinary Comment(s): Rodriguez present draining clear, yellow urine. Output 50-80 mL/h overnight. - Integumentary Integumentary Comment(s): Anterior chest incision well approximated and covered with dry intact dressing. Left lower extremity EVH site well approximated with Dermabond. Skin warm, dry, pink with evidence of good perfusion. - Neurologic Neurologic: Present: CNII-XII intact - Musculoskeletal Musculoskeletal: Present: gait normal, strength equal bilaterally - Psychiatric Psychiatric: Present: A&O x's 3, appropriate affect, intact judgment & insight - Allied health notes Allied health notes reviewed: nursing - Labs CBC & Chem 7: 10/06/17 04:05 10/06/17 04:05 Labs: Abnormal Lab Results - Last 24 Hours (Table) 10/04/17 10/05/17 10/05/17 Range/Units 07:35 08:55 10:26 WBC (3.8-10.6) k/uL RBC (4.30-5.90) m/uL Hgb (13.0-17.5) gm/dL Hct (39.0-53.0) % MCV (80.0-100.0) fL Plt Count (150-450) k/uL Neutrophils # (1.3-7.7) k/uL Lymphocytes # (1.0-4.8) k/uL INR (<1.2) ABG pO2 (83-108) mmHg ABG Total CO2 (19-24) mmol/L ABG O2 Saturation (94-97) % Sodium (137-145) mmol/L Chloride (98-107) mmol/L Glucose (74-99) mg/dL POC Glucose (mg/dL) 140 H 156 H (75-99) mg/dL Calcium (8.4-10.2) mg/dL Magnesium (1.6-2.3) mg/dL Total Protein (6.3-8.2) g/dL Albumin (3.5-5.0) g/dL Crossmatch See Detail 10/05/17 10/05/17 10/05/17 Range/Units 11:07 11:38 11:40 WBC (3.8-10.6) k/uL RBC (4.30-5.90) m/uL Hgb (13.0-17.5) gm/dL Hct (39.0-53.0) % MCV (80.0-100.0) fL Plt Count (150-450) k/uL Neutrophils # (1.3-7.7) k/uL Lymphocytes # (1.0-4.8) k/uL INR (<1.2) ABG pO2 (83-108) mmHg ABG Total CO2 (19-24) mmol/L ABG O2 Saturation (94-97) % Sodium (137-145) mmol/L Chloride (98-107) mmol/L Glucose (74-99) mg/dL POC Glucose (mg/dL) 152 H 242 H 239 H (75-99) mg/dL Calcium (8.4-10.2) mg/dL Magnesium (1.6-2.3) mg/dL Total Protein (6.3-8.2) g/dL Albumin (3.5-5.0) g/dL Crossmatch 10/05/17 10/05/17 10/05/17 Range/Units 12:08 12:40 13:16 WBC (3.8-10.6) k/uL RBC (4.30-5.90) m/uL Hgb (13.0-17.5) gm/dL Hct (39.0-53.0) % MCV (80.0-100.0) fL Plt Count (150-450) k/uL Neutrophils # (1.3-7.7) k/uL Lymphocytes # (1.0-4.8) k/uL INR (<1.2) ABG pO2 (83-108) mmHg ABG Total CO2 (19-24) mmol/L ABG O2 Saturation (94-97) % Sodium (137-145) mmol/L Chloride (98-107) mmol/L Glucose (74-99) mg/dL POC Glucose (mg/dL) 250 H 262 H 198 H (75-99) mg/dL Calcium (8.4-10.2) mg/dL Magnesium (1.6-2.3) mg/dL Total Protein (6.3-8.2) g/dL Albumin (3.5-5.0) g/dL Crossmatch 10/05/17 10/05/17 10/05/17 Range/Units 15:00 15:00 15:30 WBC (3.8-10.6) k/uL RBC 3.64 L (4.30-5.90) m/uL Hgb 10.8 L D (13.0-17.5) gm/dL Hct 33.8 L (39.0-53.0) % MCV (80.0-100.0) fL Plt Count 147 L (150-450) k/uL Neutrophils # (1.3-7.7) k/uL Lymphocytes # (1.0-4.8) k/uL INR (<1.2) ABG pO2 206 H (83-108) mmHg ABG Total CO2 25 H (19-24) mmol/L ABG O2 Saturation 100.0 H (94-97) % Sodium (137-145) mmol/L Chloride 108 H (98-107) mmol/L Glucose (74-99) mg/dL POC Glucose (mg/dL) (75-99) mg/dL Calcium 8.3 L (8.4-10.2) mg/dL Magnesium 2.4 H (1.6-2.3) mg/dL Total Protein 5.0 L (6.3-8.2) g/dL Albumin 3.2 L (3.5-5.0) g/dL Crossmatch 10/05/17 10/05/17 10/05/17 Range/Units 16:10 17:05 17:50 WBC 10.7 H (3.8-10.6) k/uL RBC 4.07 L (4.30-5.90) m/uL Hgb 11.9 L (13.0-17.5) gm/dL Hct 36.9 L (39.0-53.0) % MCV (80.0-100.0) fL Plt Count (150-450) k/uL Neutrophils # 9.5 H (1.3-7.7) k/uL Lymphocytes # 0.7 L (1.0-4.8) k/uL INR (<1.2) ABG pO2 (83-108) mmHg ABG Total CO2 (19-24) mmol/L ABG O2 Saturation (94-97) % Sodium (137-145) mmol/L Chloride (98-107) mmol/L Glucose (74-99) mg/dL POC Glucose (mg/dL) 100 H 125 H (75-99) mg/dL Calcium (8.4-10.2) mg/dL Magnesium (1.6-2.3) mg/dL Total Protein (6.3-8.2) g/dL Albumin (3.5-5.0) g/dL Crossmatch 10/05/17 10/05/17 10/05/17 Range/Units 17:54 18:51 19:51 WBC (3.8-10.6) k/uL RBC (4.30-5.90) m/uL Hgb (13.0-17.5) gm/dL Hct (39.0-53.0) % MCV (80.0-100.0) fL Plt Count (150-450) k/uL Neutrophils # (1.3-7.7) k/uL Lymphocytes # (1.0-4.8) k/uL INR (<1.2) ABG pO2 (83-108) mmHg ABG Total CO2 (19-24) mmol/L ABG O2 Saturation (94-97) % Sodium (137-145) mmol/L Chloride (98-107) mmol/L Glucose (74-99) mg/dL POC Glucose (mg/dL) 145 H 143 H 130 H (75-99) mg/dL Calcium (8.4-10.2) mg/dL Magnesium (1.6-2.3) mg/dL Total Protein (6.3-8.2) g/dL Albumin (3.5-5.0) g/dL Crossmatch 10/05/17 10/05/17 10/05/17 Range/Units 19:54 21:07 22:16 WBC (3.8-10.6) k/uL RBC 3.95 L (4.30-5.90) m/uL Hgb 11.8 L (13.0-17.5) gm/dL Hct 35.5 L (39.0-53.0) % MCV (80.0-100.0) fL Plt Count (150-450) k/uL Neutrophils # 9.1 H (1.3-7.7) k/uL Lymphocytes # 0.6 L (1.0-4.8) k/uL INR (<1.2) ABG pO2 (83-108) mmHg ABG Total CO2 (19-24) mmol/L ABG O2 Saturation (94-97) % Sodium (137-145) mmol/L Chloride (98-107) mmol/L Glucose (74-99) mg/dL POC Glucose (mg/dL) 127 H 127 H (75-99) mg/dL Calcium (8.4-10.2) mg/dL Magnesium (1.6-2.3) mg/dL Total Protein (6.3-8.2) g/dL Albumin (3.5-5.0) g/dL Crossmatch 10/05/17 10/06/17 10/06/17 Range/Units 23:07 00:02 01:01 WBC (3.8-10.6) k/uL RBC (4.30-5.90) m/uL Hgb (13.0-17.5) gm/dL Hct (39.0-53.0) % MCV (80.0-100.0) fL Plt Count (150-450) k/uL Neutrophils # (1.3-7.7) k/uL Lymphocytes # (1.0-4.8) k/uL INR (<1.2) ABG pO2 (83-108) mmHg ABG Total CO2 (19-24) mmol/L ABG O2 Saturation (94-97) % Sodium (137-145) mmol/L Chloride (98-107) mmol/L Glucose (74-99) mg/dL POC Glucose (mg/dL) 112 H 132 H 139 H (75-99) mg/dL Calcium (8.4-10.2) mg/dL Magnesium (1.6-2.3) mg/dL Total Protein (6.3-8.2) g/dL Albumin (3.5-5.0) g/dL Crossmatch 10/06/17 10/06/17 10/06/17 Range/Units 02:08 02:57 04:05 WBC (3.8-10.6) k/uL RBC 4.08 L (4.30-5.90) m/uL Hgb 11.8 L (13.0-17.5) gm/dL Hct 32.3 L (39.0-53.0) % MCV 79.2 L D (80.0-100.0) fL Plt Count (150-450) k/uL Neutrophils # (1.3-7.7) k/uL Lymphocytes # (1.0-4.8) k/uL INR (<1.2) ABG pO2 (83-108) mmHg ABG Total CO2 (19-24) mmol/L ABG O2 Saturation (94-97) % Sodium (137-145) mmol/L Chloride (98-107) mmol/L Glucose (74-99) mg/dL POC Glucose (mg/dL) 135 H 119 H (75-99) mg/dL Calcium (8.4-10.2) mg/dL Magnesium (1.6-2.3) mg/dL Total Protein (6.3-8.2) g/dL Albumin (3.5-5.0) g/dL Crossmatch 10/06/17 10/06/17 10/06/17 Range/Units 04:05 04:05 04:05 WBC (3.8-10.6) k/uL RBC (4.30-5.90) m/uL Hgb (13.0-17.5) gm/dL Hct (39.0-53.0) % MCV (80.0-100.0) fL Plt Count (150-450) k/uL Neutrophils # (1.3-7.7) k/uL Lymphocytes # (1.0-4.8) k/uL INR 1.2 H (<1.2) ABG pO2 (83-108) mmHg ABG Total CO2 (19-24) mmol/L ABG O2 Saturation (94-97) % Sodium 136 L (137-145) mmol/L Chloride (98-107) mmol/L Glucose 122 H (74-99) mg/dL POC Glucose (mg/dL) 122 H (75-99) mg/dL Calcium (8.4-10.2) mg/dL Magnesium (1.6-2.3) mg/dL Total Protein 5.2 L (6.3-8.2) g/dL Albumin 3.2 L (3.5-5.0) g/dL Crossmatch 10/06/17 10/06/17 10/06/17 Range/Units 06:05 07:01 08:04 WBC (3.8-10.6) k/uL RBC (4.30-5.90) m/uL Hgb (13.0-17.5) gm/dL Hct (39.0-53.0) % MCV (80.0-100.0) fL Plt Count (150-450) k/uL Neutrophils # (1.3-7.7) k/uL Lymphocytes # (1.0-4.8) k/uL INR (<1.2) ABG pO2 (83-108) mmHg ABG Total CO2 (19-24) mmol/L ABG O2 Saturation (94-97) % Sodium (137-145) mmol/L Chloride (98-107) mmol/L Glucose (74-99) mg/dL POC Glucose (mg/dL) 131 H 143 H 132 H (75-99) mg/dL Calcium (8.4-10.2) mg/dL Magnesium (1.6-2.3) mg/dL Total Protein (6.3-8.2) g/dL Albumin (3.5-5.0) g/dL Crossmatch - Imaging and Cardiology Chest x-ray: image reviewed EKG reviewed, no ischemic changes Assessment and Plan (1) Tobacco dependence Current Visit: Yes Status: Chronic Code(s): F17.200 - NICOTINE DEPENDENCE, UNSPECIFIED, UNCOMPLICATED SNOMED Code(s): 80476884 (2) History of pulmonary embolism Current Visit: No Status: Resolved Code(s): Z86.711 - PERSONAL HISTORY OF PULMONARY EMBOLISM SNOMED Code(s): 467480678 (3) Family history of premature coronary artery disease Current Visit: Yes Status: Chronic Code(s): Z82.49 - FAMILY HX OF ISCHEM HEART DIS AND OTH DIS OF THE CIRC SYS SNOMED Code(s): 284610018 (4) NSTEMI (non-ST elevated myocardial infarction) Current Visit: Yes Status: Acute Code(s): I21.4 - NON-ST ELEVATION (NSTEMI) MYOCARDIAL INFARCTION SNOMED Code(s): 270400115 (5) Chest pain Current Visit: Yes Status: Acute Code(s): R07.9 - CHEST PAIN, UNSPECIFIED SNOMED Code(s): 99204246 (6) Hyperlipidemia Current Visit: Yes Status: Chronic Code(s): E78.5 - HYPERLIPIDEMIA, UNSPECIFIED SNOMED Code(s): 77974277 (7) History of diabetes mellitus, type II Current Visit: No Status: Resolved Code(s): Z86.39 - PERSONAL HISTORY OF ENDO, NUTRITIONAL AND METABOLIC DISEASE SNOMED Code(s): 692120220 Plan: 1. Continue aspirin, statin, beta keven. Will maximize beta keven as tolerated. 2. Wean O2 as tolerated. 3. Encourage incentive spirometry use. 4. Encourage smoking cessation. 5. Increase activity, ambulate in hallway. PT/OT/cardiac rehab ordered. 6. Monitor daily labs, chest x-rays. 7. Discontinue [place]lake. 8. Insulin drip/diabetic management per primary care service. 9. Continue mupirocin for preoperative MSSA nasal swab. 10. Add Toradol for pain control. 11. More recommendations as patient progresses. Time with Patient: Greater than 30
[2017-10-06 09:10] VITALS: BMI 26.8
[2017-10-06 09:12] LABS: Glucose,Whole Blood 126 mg/dL (75-99)
[2017-10-06] MEDS: PANTOPRAZOLE 40 MG TABLET PO SCH (09:12)
[2017-10-06] MEDS: ceFAZolin IN SWFI 2 GM/20 ML SYRINGE IVP SCH (09:12)
--- NOTE | 2017-10-06 09:24 | XR ---
EXAMINATION TYPE: XR chest 1V portable DATE OF EXAM: 10/06/2017 COMPARISON: 10/05/2017 HISTORY: Post surgical TECHNIQUE: Single frontal view of the chest is obtained. FINDINGS: Bilateral infiltrate and small effusion greater on the left stable. ET and NG tube have be en removed. Douglas-Brooklynn catheter mediastinal drain and chest tube stable. No sizable pneumothorax. Post surgical changes noted. Arthropathy shoulders. IMPRESSION: 1. Postoperative changes with suspected postoperative atelectasis and small pleural effusions.
[2017-10-06 10:15] LABS: Glucose,Whole Blood 126 mg/dL (75-99)
--- NOTE | 2017-10-06 10:15 | CDI ---
Last Revision, August 2017 Documentation Clarification Form Date: 10/06/2017 10:06:00 AM From: Shi Avendano RN, CCDS Admit Date: 10/01/2017 11:24:00 PM Patient Name: Cesar Ryder Visit Number: [id number] ATTENTION: The Clinical Documentation Specialists (CDI) and [facility] Coding Staff appreciate your assistance in clarifying documentation. Please respond to the clarification below the line at the bottom and electronically sign. The CDI & [facility] Coding staff will review the response and follow-up if needed. Please note: Queries are made part of the Legal Health Record. If you have any questions, please contact the author of this message via ITS. Dr. Cuong Montiel/Nidia Hoyos [employer] A diagnosis of anemia lacks specificity to accurately reflect your patients severity of condition and clarification is needed. History/Risk Factors: CAD, NIDDM, AMI with TVD Clinical indicators: Patient is S/P Cardiac Cath and CABG Hemoglobin: 14.3/14.7/14.5 s/p OR Procedure dropped to 11.8 and holding Hematocrit: 44.7/45.9/45.4/35.5/32.3 Treatment: Labs AM Daily In order to capture the severity of condition, please clarify the type of anemia and etiology if known: Acute blood loss anemia Acute on chronic blood loss anemia Chronic blood loss anemia Iron deficiency anemia Hemolytic anemia Drug induced anemia Unable to determine Other, please specify An expected post-procedural or post-surgical condition; Integral to the procedure; Inherent to the procedure; An unexpected post-procedural or post-surgical condition related to surgical care; Other, please specify Unable to determine Please continue to document in your progress notes and discharge summary in order to capture severity of illness and risk of mortality. Include clinical findings that support your diagnosis. Patient's drop in hemaglobin not a true anemia, represents hemodilution from cardioplegia solution/IV fluids infused post surgery. MTDD
--- NOTE | 2017-10-06 10:49 | P.PN ---
Subjective Progress Note Date: 10/06/17 Principal diagnosis: Triple-vessel coronary artery disease, non-ST elevation myocardial infarction, status post emergent coronary artery bypass grafting 3 vessels, postoperative day #1 This is a 52-year-old white male with triple vessel coronary artery disease, presented recently with non-ST elevation myocardial infarction, remote history of pulmonary embolism, strong family history of premature coronary artery disease, patient had urgent coronary artery bypass grafting 3 vessels, CASTREJON to LAD, reverse saphenous vein graft to diagonal branch reverse saphenous vein graft to right coronary artery. I saw the patient preoperatively and I saw him yesterday postoperatively. 3 hours after his surgery, patient was extubated uneventfully. He tolerated the extubation well, doing great today, relatively asymptomatic, doing excellent with incentive spirometry, chest x-ray showed minimal atelectasis at the left base, felt to be not clinically significant. CBC is relatively normal. Basic metabolic profile is normal renal profile is normal. Objective - Vital Signs Vital signs: Vital Signs Temp 99.3 F 10/06/17 06:00 Pulse 88 10/06/17 10:00 Resp 14 10/06/17 10:00 BP 101/69 10/06/17 10:00 Pulse Ox 98 10/06/17 10:00 Intake & Output 10/05/17 10/06/17 10/06/17 18:59 06:59 18:59 Intake Total 353.475 996.496 298 Output Total 3556 1300 106 Balance -3202.525 -303.504 192 Weight 94.8 kg 94.8 kg Intake: IV 290.5 938.5 198 ACETAMINOPHEN IV (For NPO 200 ) 1,000 mg In Empty Bag 1 bag @ 400 mls/hr IVPB Q6HR NURY Rx#:[id number] CO/CI 80 30 Lactated Ringers 1,000 ml 250 600 150 @ 20 mls/hr IV .Q24H NURY Rx#:[id number] Nitroglycerin-D5w Pmx 50 7.5 16.5 mg In Dextrose/Water 1 250ml.bag @ 5 MCG/MIN 1.5 mls/hr IV .Q24H PRN Rx#: [id number] Pressure Bag 42 18 Intake, IV Titration 62.975 57.996 Amount Clevidipine Butyrate 25 16 mg In Empty Bag 1 bag @ 1 MG/HR 2 mls/hr IV .Q24H NURY Rx#:[id number] Insulin Regular 100 unit 2.003 10.051 In Sodium Chloride 0.9% 100 ml @ Per Protocol IV .Q0M NURY Rx#:[id number] Propofol 1,000 mg In 44.972 47.945 Empty Bag 1 bag @ Titrate IV .Q0M NURY Rx#: [id number] Oral 100 Output: Chest Tube Drainage 596 370 26 Chest Tube Mediastinal 526 260 20 left pleural chest tube 70 110 6 Urine 2060 930 80 Estimated Blood Loss 900 Other: Voiding Method Indwelling Catheter Indwelling Catheter # Voids 1 ABP, PAP, CO, CI - Last Documented Arterial Blood Pressure 121/105 Pulmonary Artery Pressure 23/14 Cardiac Output 6.1 Cardiac Index 2.8 - Exam Physical Exam: Revealed a 52-year-old white male in no distress, on nasal cannula. HEENT:[Neck is supple.] [No neck masses.] [No thyromegaly.] [No JVD.] Chest: [Diminished breath sounds at the left base, no crackles nor rhonchi no wheezes.] Cardiac Exam: [Normal S1 and S2, no S3 gallop, no murmur.] Abdomen: [Soft, nontender, no megaly, no rebound, no guarding, normal bowel sounds.] Extremities: [No clubbing, no edema, no cyanosis.] Neurological Exam: [No focal neurologic deficit. Lymphatics: No lymphadenopathy Psychiatric: Normal mood affect and mental status examination.] - Labs CBC & Chem 7: 10/06/17 04:05 10/06/17 04:05 Labs: Abnormal Lab Results - Last 24 Hours (Table) 10/04/17 10/05/17 10/05/17 Range/Units 07:35 11:07 11:38 WBC (3.8-10.6) k/uL RBC (4.30-5.90) m/uL Hgb (13.0-17.5) gm/dL Hct (39.0-53.0) % MCV (80.0-100.0) fL Plt Count (150-450) k/uL Neutrophils # (1.3-7.7) k/uL Lymphocytes # (1.0-4.8) k/uL INR (<1.2) ABG pO2 (83-108) mmHg ABG Total CO2 (19-24) mmol/L ABG O2 Saturation (94-97) % Sodium (137-145) mmol/L Chloride (98-107) mmol/L Glucose (74-99) mg/dL POC Glucose (mg/dL) 152 H 242 H (75-99) mg/dL Calcium (8.4-10.2) mg/dL Magnesium (1.6-2.3) mg/dL Total Protein (6.3-8.2) g/dL Albumin (3.5-5.0) g/dL Crossmatch See Detail 10/05/17 10/05/17 10/05/17 Range/Units 11:40 12:08 12:40 WBC (3.8-10.6) k/uL RBC (4.30-5.90) m/uL Hgb (13.0-17.5) gm/dL Hct (39.0-53.0) % MCV (80.0-100.0) fL Plt Count (150-450) k/uL Neutrophils # (1.3-7.7) k/uL Lymphocytes # (1.0-4.8) k/uL INR (<1.2) ABG pO2 (83-108) mmHg ABG Total CO2 (19-24) mmol/L ABG O2 Saturation (94-97) % Sodium (137-145) mmol/L Chloride (98-107) mmol/L Glucose (74-99) mg/dL POC Glucose (mg/dL) 239 H 250 H 262 H (75-99) mg/dL Calcium (8.4-10.2) mg/dL Magnesium (1.6-2.3) mg/dL Total Protein (6.3-8.2) g/dL Albumin (3.5-5.0) g/dL Crossmatch 10/05/17 10/05/17 10/05/17 Range/Units 13:16 15:00 15:00 WBC (3.8-10.6) k/uL RBC 3.64 L (4.30-5.90) m/uL Hgb 10.8 L D (13.0-17.5) gm/dL Hct 33.8 L (39.0-53.0) % MCV (80.0-100.0) fL Plt Count 147 L (150-450) k/uL Neutrophils # (1.3-7.7) k/uL Lymphocytes # (1.0-4.8) k/uL INR (<1.2) ABG pO2 (83-108) mmHg ABG Total CO2 (19-24) mmol/L ABG O2 Saturation (94-97) % Sodium (137-145) mmol/L Chloride 108 H (98-107) mmol/L Glucose (74-99) mg/dL POC Glucose (mg/dL) 198 H (75-99) mg/dL Calcium 8.3 L (8.4-10.2) mg/dL Magnesium 2.4 H (1.6-2.3) mg/dL Total Protein 5.0 L (6.3-8.2) g/dL Albumin 3.2 L (3.5-5.0) g/dL Crossmatch 10/05/17 10/05/17 10/05/17 Range/Units 15:30 16:10 17:05 WBC (3.8-10.6) k/uL RBC (4.30-5.90) m/uL Hgb (13.0-17.5) gm/dL Hct (39.0-53.0) % MCV (80.0-100.0) fL Plt Count (150-450) k/uL Neutrophils # (1.3-7.7) k/uL Lymphocytes # (1.0-4.8) k/uL INR (<1.2) ABG pO2 206 H (83-108) mmHg ABG Total CO2 25 H (19-24) mmol/L ABG O2 Saturation 100.0 H (94-97) % Sodium (137-145) mmol/L Chloride (98-107) mmol/L Glucose (74-99) mg/dL POC Glucose (mg/dL) 100 H 125 H (75-99) mg/dL Calcium (8.4-10.2) mg/dL Magnesium (1.6-2.3) mg/dL Total Protein (6.3-8.2) g/dL Albumin (3.5-5.0) g/dL Crossmatch 10/05/17 10/05/17 10/05/17 Range/Units 17:50 17:54 18:51 WBC 10.7 H (3.8-10.6) k/uL RBC 4.07 L (4.30-5.90) m/uL Hgb 11.9 L (13.0-17.5) gm/dL Hct 36.9 L (39.0-53.0) % MCV (80.0-100.0) fL Plt Count (150-450) k/uL Neutrophils # 9.5 H (1.3-7.7) k/uL Lymphocytes # 0.7 L (1.0-4.8) k/uL INR (<1.2) ABG pO2 (83-108) mmHg ABG Total CO2 (19-24) mmol/L ABG O2 Saturation (94-97) % Sodium (137-145) mmol/L Chloride (98-107) mmol/L Glucose (74-99) mg/dL POC Glucose (mg/dL) 145 H 143 H (75-99) mg/dL Calcium (8.4-10.2) mg/dL Magnesium (1.6-2.3) mg/dL Total Protein (6.3-8.2) g/dL Albumin (3.5-5.0) g/dL Crossmatch 10/05/17 10/05/17 10/05/17 Range/Units 19:51 19:54 21:07 WBC (3.8-10.6) k/uL RBC 3.95 L (4.30-5.90) m/uL Hgb 11.8 L (13.0-17.5) gm/dL Hct 35.5 L (39.0-53.0) % MCV (80.0-100.0) fL Plt Count (150-450) k/uL Neutrophils # 9.1 H (1.3-7.7) k/uL Lymphocytes # 0.6 L (1.0-4.8) k/uL INR (<1.2) ABG pO2 (83-108) mmHg ABG Total CO2 (19-24) mmol/L ABG O2 Saturation (94-97) % Sodium (137-145) mmol/L Chloride (98-107) mmol/L Glucose (74-99) mg/dL POC Glucose (mg/dL) 130 H 127 H (75-99) mg/dL Calcium (8.4-10.2) mg/dL Magnesium (1.6-2.3) mg/dL Total Protein (6.3-8.2) g/dL Albumin (3.5-5.0) g/dL Crossmatch 10/05/17 10/05/17 10/06/17 Range/Units 22:16 23:07 00:02 WBC (3.8-10.6) k/uL RBC (4.30-5.90) m/uL Hgb (13.0-17.5) gm/dL Hct (39.0-53.0) % MCV (80.0-100.0) fL Plt Count (150-450) k/uL Neutrophils # (1.3-7.7) k/uL Lymphocytes # (1.0-4.8) k/uL INR (<1.2) ABG pO2 (83-108) mmHg ABG Total CO2 (19-24) mmol/L ABG O2 Saturation (94-97) % Sodium (137-145) mmol/L Chloride (98-107) mmol/L Glucose (74-99) mg/dL POC Glucose (mg/dL) 127 H 112 H 132 H (75-99) mg/dL Calcium (8.4-10.2) mg/dL Magnesium (1.6-2.3) mg/dL Total Protein (6.3-8.2) g/dL Albumin (3.5-5.0) g/dL Crossmatch 10/06/17 10/06/17 10/06/17 Range/Units 01:01 02:08 02:57 WBC (3.8-10.6) k/uL RBC (4.30-5.90) m/uL Hgb (13.0-17.5) gm/dL Hct (39.0-53.0) % MCV (80.0-100.0) fL Plt Count (150-450) k/uL Neutrophils # (1.3-7.7) k/uL Lymphocytes # (1.0-4.8) k/uL INR (<1.2) ABG pO2 (83-108) mmHg ABG Total CO2 (19-24) mmol/L ABG O2 Saturation (94-97) % Sodium (137-145) mmol/L Chloride (98-107) mmol/L Glucose (74-99) mg/dL POC Glucose (mg/dL) 139 H 135 H 119 H (75-99) mg/dL Calcium (8.4-10.2) mg/dL Magnesium (1.6-2.3) mg/dL Total Protein (6.3-8.2) g/dL Albumin (3.5-5.0) g/dL Crossmatch 10/06/17 10/06/17 10/06/17 Range/Units 04:05 04:05 04:05 WBC (3.8-10.6) k/uL RBC 4.08 L (4.30-5.90) m/uL Hgb 11.8 L (13.0-17.5) gm/dL Hct 32.3 L (39.0-53.0) % MCV 79.2 L D (80.0-100.0) fL Plt Count (150-450) k/uL Neutrophils # (1.3-7.7) k/uL Lymphocytes # (1.0-4.8) k/uL INR 1.2 H (<1.2) ABG pO2 (83-108) mmHg ABG Total CO2 (19-24) mmol/L ABG O2 Saturation (94-97) % Sodium 136 L (137-145) mmol/L Chloride (98-107) mmol/L Glucose 122 H (74-99) mg/dL POC Glucose (mg/dL) (75-99) mg/dL Calcium (8.4-10.2) mg/dL Magnesium (1.6-2.3) mg/dL Total Protein 5.2 L (6.3-8.2) g/dL Albumin 3.2 L (3.5-5.0) g/dL Crossmatch 10/06/17 10/06/17 10/06/17 Range/Units 04:05 06:05 07:01 WBC (3.8-10.6) k/uL RBC (4.30-5.90) m/uL Hgb (13.0-17.5) gm/dL Hct (39.0-53.0) % MCV (80.0-100.0) fL Plt Count (150-450) k/uL Neutrophils # (1.3-7.7) k/uL Lymphocytes # (1.0-4.8) k/uL INR (<1.2) ABG pO2 (83-108) mmHg ABG Total CO2 (19-24) mmol/L ABG O2 Saturation (94-97) % Sodium (137-145) mmol/L Chloride (98-107) mmol/L Glucose (74-99) mg/dL POC Glucose (mg/dL) 122 H 131 H 143 H (75-99) mg/dL Calcium (8.4-10.2) mg/dL Magnesium (1.6-2.3) mg/dL Total Protein (6.3-8.2) g/dL Albumin (3.5-5.0) g/dL Crossmatch 10/06/17 10/06/17 10/06/17 Range/Units 08:04 09:11 10:13 WBC (3.8-10.6) k/uL RBC (4.30-5.90) m/uL Hgb (13.0-17.5) gm/dL Hct (39.0-53.0) % MCV (80.0-100.0) fL Plt Count (150-450) k/uL Neutrophils # (1.3-7.7) k/uL Lymphocytes # (1.0-4.8) k/uL INR (<1.2) ABG pO2 (83-108) mmHg ABG Total CO2 (19-24) mmol/L ABG O2 Saturation (94-97) % Sodium (137-145) mmol/L Chloride (98-107) mmol/L Glucose (74-99) mg/dL POC Glucose (mg/dL) 132 H 126 H 126 H (75-99) mg/dL Calcium (8.4-10.2) mg/dL Magnesium (1.6-2.3) mg/dL Total Protein (6.3-8.2) g/dL Albumin (3.5-5.0) g/dL Crossmatch Assessment and Plan Assessment: impression: 1 acute non-ST elevation myocardial infarction 2 severe coronary artery disease as noted on the cardiac catheterization, status post three-vessel coronary artery bypass surgery, postoperative day #1. 3 history of tobacco dependence syndrome but no significant COPD symptoms based on the clinical history. However FEV1 testing is pending. 4 remote history of pulmonary embolism provoked by longer driving hours. 5 family history of premature coronary artery disease. Recommendation: I fully agree with the present treatment plan, continue incentive spirometry, early ambulation, we'll continue to follow. Time with Patient: Less than 30
[2017-10-06] MEDS: KETOROLAC 30 MG/ML 1 ML VIAL IVP SCH ×2 (11:03→17:49)
[2017-10-06 12:11] LABS: Glucose,Whole Blood 139 mg/dL (75-99)
[2017-10-06 13:12] LABS: Glucose,Whole Blood 135 mg/dL (75-99)
[2017-10-06] MEDS ORDERED: HYDROcodone/APAP 5-325MG 1 EACH TAB PO PRN (14:00)
[2017-10-06] MEDS ORDERED: BISACODYL 10 MG SUPP RECTAL PRN (14:01)
[2017-10-06] MEDS ORDERED: MAGNESIUM HYDROXIDE 2,400 MG/10 ML CUP PO PRN (14:01)
[2017-10-06] MEDS ORDERED: IPRATROPIUM-ALBUTEROL 3 ML NEB INHALATION PRN (14:03)
--- NOTE | 2017-10-06 15:04 | PN ---
PROGRESS NOTE Mr. Ryder is a 52-year-old male who has underwent coronary bypass grafting. He is doing well this morning. His breathing has been stable. He denies any symptoms of chest pain, except mild soreness in the chest. Hemodynamically, he has been stable. He has continued to be at this time on aspirin once a day, Lipitor 40 mg daily, metoprolol tartrate 12.5 Mg twice a day. PHYSICAL EXAMINATION: Blood pressure running in the 90s with a heart rate in the 70s. LUNGS: With mild decrease in breath sounds at bases. Heart regular rate and rhythm S1, S2. No S3, plus rub noted. ABDOMEN: Soft, nontender. Extremities wrapping in place. IMPRESSION: 1. Status post bypass grafting appears to be stable. 2. History of hyperlipidemia. 3. Remote history of pulmonary embolism. RECOMMENDATION: From the cardiac standpoint, we will continue present therapy. Continue incentive spirometry. Increase his level of activity and depending on his progress, further recommendations will be made. MMODL / IJN: [id number] /
[2017-10-06 15:13] LABS: Glucose,Whole Blood 147 mg/dL (75-99)
--- NOTE | 2017-10-06 15:13 | CONS ---
CONSULTATION DATE OF CONSULTATION: 10/06/2017 CHIEF COMPLAINT: Status post CABG. HISTORY OF PRESENT ILLNESS: This gentleman is doing very well. Pain is under good control and he is having no confusion, focal neurologic deficits, shortness of breath, chills, etc. REVIEW OF SYSTEMS: Otherwise unremarkable. Past medical history, family history, personal and social history are all found in his documents from the medical floor. PHYSICAL EXAMINATION: Blood pressure is 125/73 with a pulse of 89, respirations of 22 and he is afebrile. GENERAL: He appeared to be in no acute distress. Skin color was good. Hydration is good. Head, ears, eyes, nose, mouth, and throat were unremarkable. Pupils equal, round. Gaze conjugate. Breath sounds are heard on both sides. Cardiac exam demonstrates sinus rhythm. No extra beats or murmurs. Extremities are normal. Neurological is intact. IMPRESSION: Status post coronary artery bypass grafting for triple-vessel coronary artery disease. PLAN: Follow with Cardiology and Cardiovascular surgery. MMODL / IJN: [id number] /
--- NOTE | 2017-10-06 15:13 | DS ---
DISCHARGE SUMMARY CHIEF COMPLAINT: Chest pain. Acute myocardial infarction. HISTORY OF PRESENT ILLNESS AND PHYSICAL EXAM: Details of this man's history and physical can be found in the initial workup. COURSE IN HOSPITAL: After admission, he was placed on bedrest, started on intravenous fluids. He was taken to the [facility] responding after triple-vessel coronary artery disease. Postoperatively, did well and he was kept on the floor for several days until his surgery could be arranged on the . FINAL DIAGNOSES: 1. Acute myocardial infarction. 2. Triple-vessel coronary artery disease. 3. ASCVD. OPERATIONS: None. CONSULTATIONS: Cardiology and cardiac surgery. He is improved. MMODL / IJN: [id number] /
[2017-10-06] MEDS: LACTATED RINGERS 1,000 ML IV SCH (16:31)
[2017-10-06] MEDS: INSULIN REGULAR 100 UNIT in SODIUM CHLORIDE 0.9% 100 ML IV SCH (16:31)
[2017-10-06 17:03] LABS: Glucose,Whole Blood 140 mg/dL (75-99)
[2017-10-06 19:04] LABS: Glucose,Whole Blood 196 mg/dL (75-99)
[2017-10-06 20:02] LABS: Glucose,Whole Blood 165 mg/dL (75-99)
[2017-10-06] MEDS: SENNOSIDES-DOCUSATE SODIUM 1 EACH TAB PO SCH (20:03)
[2017-10-06 21:08] LABS: Glucose,Whole Blood 124 mg/dL (75-99)
[2017-10-06 22:11] LABS: Glucose,Whole Blood 131 mg/dL (75-99)
[2017-10-06] MEDS: HYDROcodone/APAP 5-325MG 1 EACH TAB PO PRN (22:12)
[2017-10-06 23:25] LABS: Glucose,Whole Blood 110 mg/dL (75-99)
[2017-10-07 00:10] LABS: Glucose,Whole Blood 122 mg/dL (75-99)
[2017-10-07] MEDS: KETOROLAC 30 MG/ML 1 ML VIAL IVP SCH ×4 (00:21→17:16)
[2017-10-07] MEDS: HEPARIN SODIUM,PORCINE 5,000 UNIT/ML 1 ML VIAL SQ SCH ×3 (00:21→17:08)
[2017-10-07 01:56] LABS: Glucose,Whole Blood 115 mg/dL (75-99)
[2017-10-07 03:32] LABS: Glucose,Whole Blood 110 mg/dL (75-99)
[2017-10-07 04:31] LABS: Glucose,Whole Blood 120 mg/dL (75-99)
[2017-10-07 05:01] LABS: Basophils % (A) 0 %; Eosinophils # (A) 0.1 k/uL (0-0.7); Eosinophils % (A) 2 %; HCT 33.5 % (39.0-53.0); Lymphocytes # (A) 1.2 k/uL (1.0-4.8); Lymphocytes % (A) 16 %; MCH 29.5 pg (25.0-35.0); MCHC 32.9 g/dL (31.0-37.0); Mean Platelet Volume 8.4; Monocytes # (A) 0.4 k/uL (0-1.0); Monocytes % (A) 5 %; Neutrophils # (A) 5.6 k/uL (1.3-7.7); Neutrophils % (A) 75 %; Platelet Count 165 k/uL (150-450); RBC 3.74 m/uL (4.30-5.90); RDW 13.2 % (11.5-15.5); WBC 7.4 k/uL (3.8-10.6)
[2017-10-07 05:40] LABS: MCV 89.5 fL (80.0-100.0)
[2017-10-07 05:44] LABS: Glucose,Whole Blood 132 mg/dL (75-99)
[2017-10-07 05:48] LABS: ALT 28 U/L (21-72); AST 15 U/L (17-59); Albumin 2.7 g/dL (3.5-5.0); Alkaline Phosphatase 65 U/L (38-126); Anion Gap 6 mmol/L; Blood Urea Nitrogen 15 mg/dL (9-20); Calcium 8.6 mg/dL (8.4-10.2); Carbon Dioxide 28 mmol/L (22-30); Chloride 103 mmol/L (98-107); Glucose 109 mg/dL (74-99); Magnesium 2.2 mg/dL (1.6-2.3); Potassium 4.3 mmol/L (3.5-5.1); Sodium 137 mmol/L (137-145); Total Bilirubin 0.6 mg/dL (0.2-1.3); Total Protein 4.7 g/dL (6.3-8.2)
[2017-10-07] MEDS: INSULIN ASPART 100 UNIT/ML 1 ML 10 ML VIAL SQ SCH ×4 (07:49→20:45)
[2017-10-07 07:50] LABS: Glucose,Whole Blood 150 mg/dL (75-99)
[2017-10-07] MEDS: CLOPIDOGREL 75 MG TAB PO SCH (07:50)
[2017-10-07] MEDS: ASPIRIN 325 MG TAB PO SCH (07:50)
[2017-10-07] MEDS: ATORVASTATIN 40 MG TAB PO SCH (07:50)
[2017-10-07] MEDS: PANTOPRAZOLE 40 MG TABLET PO SCH (07:50)
[2017-10-07] MEDS: MUPIROCIN 2% OINT 22 GM TUBE NASAL SCH ×2 (07:51→20:45)
[2017-10-07] MEDS: INSULN ASP PRT/INSULIN ASPART 100 UNIT/ML 10 ML VIAL SQ SCH (07:55)
--- NOTE | 2017-10-07 08:09 | XR ---
EXAMINATION TYPE: XR chest 1V portable DATE OF EXAM: 10/07/2017 COMPARISON: 10/06/2017 HISTORY: Postop TECHNIQUE: Single frontal view of the chest is obtained. FINDINGS: Bilateral infiltrate and small effusion greater on the left stable. ET and NG tube have be en removed. [place]homa-Brooklynn catheters been removed. Mediastinal drain and chest tube stable. No sizable pne umothorax. Postsurgical changes noted. Arthropathy shoulders. IMPRESSION: 1. Postoperative changes with suspected postoperative atelectasis and small pleural effusions.
--- NOTE | 2017-10-07 08:11 | P.PN ---
Subjective Progress Note Date: 10/07/17 Principal diagnosis: Triple-vessel coronary artery disease, non-STEMI. History of pulmonary embolism , tobacco dependence, family history of premature coronary artery disease with his father having open heart surgery in his 50s. Hyperlipidemia with LDL 113. Previous history of diabetes mellitus, resolved after weight loss, current hemoglobin A1c 6.7%. Preoperative nasal swab positive for MSSA. POD #2 urgent coronary artery bypass grafting 3 vessels, left internal mammary artery to the left anterior descending artery, reverse saphenous vein graft to the diagonal artery, reverse saphenous vein graft to the right coronary artery, endoscopic vein harvest of the left greater saphenous vein, epi-aortic ultrasound, and intraoperative transesophageal echocardiogram. Patient is currently sitting up in the recliner in no acute distress. Denies chest pain, shortness of breath. No new concerns. Objective - Vital Signs Vital signs: Vital Signs Temp 98.3 F 10/07/17 04:00 Pulse 90 10/07/17 07:00 Resp 18 10/07/17 07:00 BP 88/52 10/07/17 07:00 Pulse Ox 98 10/07/17 07:00 Intake & Output 10/06/17 10/07/17 10/07/17 18:59 06:59 18:59 Intake Total 713.119 324.268 35 Output Total 827 1075 80 Balance -113.881 -750.732 -45 Weight 94.8 kg 94.3 kg Intake: IV 602 316 35 ACETAMINOPHEN IV (For NPO 150 ) 1,000 mg In Empty Bag 1 bag @ 400 mls/hr IVPB Q6HR NURY Rx#:[id number] CO/CI 30 Lactated Ringers 1,000 ml 380 280 30 @ 20 mls/hr IV .Q24H NURY Rx#:[id number] Pressure Bag 42 36 5 Intake, IV Titration 11.119 8.268 Amount Insulin Regular 100 unit 11.119 8.268 In Sodium Chloride 0.9% 100 ml @ Per Protocol IV .Q0M NURY Rx#:[id number] Oral 100 Output: Chest Tube Drainage 92 145 30 Chest Tube Mediastinal 60 95 20 left pleural chest tube 32 50 10 Urine 735 930 50 Other: Voiding Method Indwelling Catheter Indwelling Catheter # Voids 1 ABP, PAP, CO, CI - Last Documented Arterial Blood Pressure 121/105 Pulmonary Artery Pressure 21/12 Cardiac Output 6.1 Cardiac Index 2.8 - Constitutional General appearance: Present: cooperative, no acute distress - Respiratory Details: Lungs sounds diminished bilaterally. Respirations even, nonlabored. Currently on 2 L nasal cannula with oxygen saturation 98%. Able to achieve 1250 mL on his incentive spirometry. Mediastinal chest tube to -20 cm wall suction, 55 mL serous drainage overnight, 130 mL last 24 hours. Left pleural chest tube to - 20 cm wall suction, 10 mL serous drainage overnight, 45 mL last 24 hours. No air leak present. Chest x-ray reviewed, stable. - Cardiovascular Details: S1, S2 present, positive rub. Regular rate and rhythm, sinus rhythm on telemetry. Sternum stable. A/V epicardial pacemaker wires present, grounded. Palpable peripheral pulses bilaterally. No edema present. Right internal jugular Cordis present. No calf pain or tenderness noted. Heart hugger in place with patient demonstrating appropriate use. Antiembolism stockings, SCDs present. - Gastrointestinal Gastrointestinal Comment(s): Abdomen soft, nontender, nondistended. Active bowel sounds 4 quadrants. Tolerating diet. Positive flatus, negative bowel movement. - Genitourinary Genitourinary Comment(s): Rodriguez present draining clear, yellow urine. Output 80-130 mL per hour overnight. - Integumentary Integumentary Comment(s): Anterior chest incision well approximated and covered with dry intact dressing. Left lower extremity EVH site well approximated Dermabond. Skin warm, dry, pink with evidence of good perfusion. - Neurologic Neurologic: Present: CNII-XII intact - Musculoskeletal Musculoskeletal: Present: gait normal, strength equal bilaterally - Psychiatric Psychiatric: Present: A&O x's 3, appropriate affect, intact judgment & insight - Allied health notes Allied health notes reviewed: nursing - Labs CBC & Chem 7: 10/07/17 04:30 10/07/17 04:30 Labs: Abnormal Lab Results - Last 24 Hours (Table) 10/06/17 10/06/17 10/06/17 Range/Units 08:04 09:11 10:13 RBC (4.30-5.90) m/uL Hgb (13.0-17.5) gm/dL Hct (39.0-53.0) % Glucose (74-99) mg/dL POC Glucose (mg/dL) 132 H 126 H 126 H (75-99) mg/dL AST (17-59) U/L Total Protein (6.3-8.2) g/dL Albumin (3.5-5.0) g/dL 10/06/17 10/06/17 10/06/17 Range/Units 12:09 13:10 15:12 RBC (4.30-5.90) m/uL Hgb (13.0-17.5) gm/dL Hct (39.0-53.0) % Glucose (74-99) mg/dL POC Glucose (mg/dL) 139 H 135 H 147 H (75-99) mg/dL AST (17-59) U/L Total Protein (6.3-8.2) g/dL Albumin (3.5-5.0) g/dL 10/06/17 10/06/17 10/06/17 Range/Units 17:00 19:02 20:01 RBC (4.30-5.90) m/uL Hgb (13.0-17.5) gm/dL Hct (39.0-53.0) % Glucose (74-99) mg/dL POC Glucose (mg/dL) 140 H 196 H 165 H (75-99) mg/dL AST (17-59) U/L Total Protein (6.3-8.2) g/dL Albumin (3.5-5.0) g/dL 10/06/17 10/06/17 10/06/17 Range/Units 21:07 22:08 23:24 RBC (4.30-5.90) m/uL Hgb (13.0-17.5) gm/dL Hct (39.0-53.0) % Glucose (74-99) mg/dL POC Glucose (mg/dL) 124 H 131 H 110 H (75-99) mg/dL AST (17-59) U/L Total Protein (6.3-8.2) g/dL Albumin (3.5-5.0) g/dL 10/07/17 10/07/17 10/07/17 Range/Units 00:09 01:53 03:29 RBC (4.30-5.90) m/uL Hgb (13.0-17.5) gm/dL Hct (39.0-53.0) % Glucose (74-99) mg/dL POC Glucose (mg/dL) 122 H 115 H 110 H (75-99) mg/dL AST (17-59) U/L Total Protein (6.3-8.2) g/dL Albumin (3.5-5.0) g/dL 10/07/17 10/07/17 10/07/17 Range/Units 04:29 04:30 04:30 RBC 3.74 L (4.30-5.90) m/uL Hgb 11.0 L (13.0-17.5) gm/dL Hct 33.5 L (39.0-53.0) % Glucose 109 H (74-99) mg/dL POC Glucose (mg/dL) 120 H (75-99) mg/dL AST 15 L (17-59) U/L Total Protein 4.7 L (6.3-8.2) g/dL Albumin 2.7 L (3.5-5.0) g/dL 10/07/17 10/07/17 Range/Units 05:43 07:49 RBC (4.30-5.90) m/uL Hgb (13.0-17.5) gm/dL Hct (39.0-53.0) % Glucose (74-99) mg/dL POC Glucose (mg/dL) 132 H 150 H (75-99) mg/dL AST (17-59) U/L Total Protein (6.3-8.2) g/dL Albumin (3.5-5.0) g/dL - Imaging and Cardiology Chest x-ray: image reviewed Assessment and Plan (1) Tobacco dependence Current Visit: Yes Status: Chronic Code(s): F17.200 - NICOTINE DEPENDENCE, UNSPECIFIED, UNCOMPLICATED SNOMED Code(s): 40582371 (2) History of pulmonary embolism Current Visit: No Status: Resolved Code(s): Z86.711 - PERSONAL HISTORY OF PULMONARY EMBOLISM SNOMED Code(s): 257325942 (3) Family history of premature coronary artery disease Current Visit: Yes Status: Chronic Code(s): Z82.49 - FAMILY HX OF ISCHEM HEART DIS AND OTH DIS OF THE CIRC SYS SNOMED Code(s): 971580491 (4) NSTEMI (non-ST elevated myocardial infarction) Current Visit: Yes Status: Acute Code(s): I21.4 - NON-ST ELEVATION (NSTEMI) MYOCARDIAL INFARCTION SNOMED Code(s): 037357237 (5) Chest pain Current Visit: Yes Status: Acute Code(s): R07.9 - CHEST PAIN, UNSPECIFIED SNOMED Code(s): 86854369 (6) Hyperlipidemia Current Visit: Yes Status: Chronic Code(s): E78.5 - HYPERLIPIDEMIA, UNSPECIFIED SNOMED Code(s): 02488143 (7) History of diabetes mellitus, type II Current Visit: No Status: Resolved Code(s): Z86.39 - PERSONAL HISTORY OF ENDO, NUTRITIONAL AND METABOLIC DISEASE SNOMED Code(s): 589629642 Plan: 1. Continue aspirin, statin, beta keven. Will maximize beta keven as tolerated. 2. Wean O2 as tolerated. 3. Encourage incentive spirometry use. 4. Encourage smoking cessation. 5. Increase activity, ambulate in hallway. PT/OT/cardiac rehab following. 6. Monitor daily labs, chest x-rays. 7. Will discontinue chest tubes. 8. Diabetic management per primary care service. 9. Continue mupirocin for preoperative MSSA nasal swab. 10. Likely will transfer out of ICU to [facility]. [facility] today. 11. Patient will need rehab at discharge as he lives alone. Dr. Reed consulted for inpatient rehab. 12. More recommendations as patient progresses. Time with Patient: Greater than 30
--- NOTE | 2017-10-07 08:53 | PN ---
PROGRESS NOTE Mr. Ryder is a 52-year-old male who presented with non ST-segment elevation myocardial infarction, underwent cardiac catheterization and subsequent coronary bypass grafting. He is doing well this morning. His breathing has been stable. He is denying any symptoms of chest pain. He denies any dizziness or palpitation. He denies any dizziness. Hemodynamically, he continues to be in sinus mechanism with no evidence of atrial or ventricular tachyarrhythmia. He continues to be at this time on aspirin once a day, Lipitor 40 mg daily, Plavix 75 mg daily, metoprolol tartrate 12.5 mg twice a day. PHYSICAL EXAMINATION: Blood pressure 93/50 with the heart rate in the 90s. LUNGS: Clear. HEART: Regular rate and rhythm. S1, S2. No S3 with rub. ABDOMEN: Soft, nontender. EXTREMITIES: No significant edema. LAB DATA: BUN and creatinine 15 and 0.8, potassium 4.3. Hemoglobin of 11. IMPRESSION: 1. Status post coronary artery bypass grafting stable. 2. Hyperlipidemia. RECOMMENDATION: We will continue current therapy. Hopefully transfer him to telemetry floor today. Increase his level of activity and depending on the trend of his blood pressure, further recommendation will be made. MMODL / IJN: [id number] /
[2017-10-07] MEDS: METOPROLOL TARTRATE 12.5 MG TAB PO SCH ×2 (10:01→20:45)
[2017-10-07 12:18] LABS: Glucose,Whole Blood 148 mg/dL (75-99)
--- NOTE | 2017-10-07 12:35 | P.PN ---
Subjective Progress Note Date: 10/07/17 Principal diagnosis: Triple-vessel coronary artery disease, non-ST elevation myocardial infarction, status post emergent coronary artery bypass grafting 3 vessels, postoperative day #2 This is a 52-year-old white male with triple vessel coronary artery disease, presented recently with non-ST elevation myocardial infarction, remote history of pulmonary embolism, strong family history of premature coronary artery disease, patient had urgent coronary artery bypass grafting 3 vessels, CASTREJON to LAD, reverse saphenous vein graft to diagonal branch reverse saphenous vein graft to right coronary artery. I saw the patient preoperatively and I saw him yesterday postoperatively. 3 hours after his surgery, patient was extubated uneventfully. He tolerated the extubation well, doing great today, relatively asymptomatic, doing excellent with incentive spirometry, chest x-ray showed minimal atelectasis at the left base, felt to be not clinically significant. CBC is relatively normal. Basic metabolic profile is normal renal profile is normal. Reevaluated today on 10/07/2017, patient is doing well, chest x-ray is reassuring except for minimal tiny bit of atelectasis at the left base as expected. Tubes have been removed. Patient denies any shortness of breath no cough no wheezing no chest pain.all labs were reviewed and they seem to be relatively unremarkable. Objective - Vital Signs Vital signs: Vital Signs Temp 98.6 F 10/07/17 08:00 Pulse 94 10/07/17 10:00 Resp 18 10/07/17 10:00 BP 103/59 10/07/17 10:00 Pulse Ox 95 10/07/17 10:00 Intake & Output 10/06/17 10/07/17 10/07/17 18:59 06:59 18:59 Intake Total 713.119 324.268 538 Output Total 827 1075 280 Balance -113.881 -750.732 258 Weight 94.8 kg 94.3 kg 94.3 kg Intake: IV 602 316 58 ACETAMINOPHEN IV (For NPO 150 ) 1,000 mg In Empty Bag 1 bag @ 400 mls/hr IVPB Q6HR [facility] Rx#:[id number] CO/CI 30 Lactated Ringers 1,000 ml 380 280 50 @ 20 mls/hr IV .Q24H [facility] Rx#:[id number] Pressure Bag 42 36 8 Intake, IV Titration 11.119 8.268 Amount Insulin Regular 100 unit 11.119 8.268 In Sodium Chloride 0.9% 100 ml @ Per Protocol IV .Q0M [facility] Rx#:[id number] Oral 100 480 Output: Chest Tube Drainage 92 145 30 Chest Tube Mediastinal 60 95 20 left pleural chest tube 32 50 10 Urine 735 930 250 Other: Voiding Method Indwelling Catheter Indwelling Catheter Urinal # Voids 1 1 ABP, PAP, CO, CI - Last Documented Arterial Blood Pressure 121/105 Pulmonary Artery Pressure 21/12 Cardiac Output 6.1 Cardiac Index 2.8 - Exam Physical Exam: Revealed a 52-year-old white male in no distress, on nasal cannula. HEENT:[Neck is supple.] [No neck masses.] [No thyromegaly.] [No JVD.] Chest: [Diminished breath sounds at the left base, no crackles nor rhonchi no wheezes.] Cardiac Exam: [Normal S1 and S2, no S3 gallop, no murmur.] Abdomen: [Soft, nontender, no megaly, no rebound, no guarding, normal bowel sounds.] Extremities: [No clubbing, no edema, no cyanosis.] Neurological Exam: [No focal neurologic deficit. Lymphatics: No lymphadenopathy Psychiatric: Normal mood affect and mental status examination.] - Labs CBC & Chem 7: 10/07/17 04:30 10/07/17 04:30 Labs: Abnormal Lab Results - Last 24 Hours (Table) 10/06/17 10/06/17 10/06/17 Range/Units 13:10 15:12 17:00 RBC (4.30-5.90) m/uL Hgb (13.0-17.5) gm/dL Hct (39.0-53.0) % Glucose (74-99) mg/dL POC Glucose (mg/dL) 135 H 147 H 140 H (75-99) mg/dL AST (17-59) U/L Total Protein (6.3-8.2) g/dL Albumin (3.5-5.0) g/dL 10/06/17 10/06/17 10/06/17 Range/Units 19:02 20:01 21:07 RBC (4.30-5.90) m/uL Hgb (13.0-17.5) gm/dL Hct (39.0-53.0) % Glucose (74-99) mg/dL POC Glucose (mg/dL) 196 H 165 H 124 H (75-99) mg/dL AST (17-59) U/L Total Protein (6.3-8.2) g/dL Albumin (3.5-5.0) g/dL 10/06/17 10/06/17 10/07/17 Range/Units 22:08 23:24 00:09 RBC (4.30-5.90) m/uL Hgb (13.0-17.5) gm/dL Hct (39.0-53.0) % Glucose (74-99) mg/dL POC Glucose (mg/dL) 131 H 110 H 122 H (75-99) mg/dL AST (17-59) U/L Total Protein (6.3-8.2) g/dL Albumin (3.5-5.0) g/dL 10/07/17 10/07/17 10/07/17 Range/Units 01:53 03:29 04:29 RBC (4.30-5.90) m/uL Hgb (13.0-17.5) gm/dL Hct (39.0-53.0) % Glucose (74-99) mg/dL POC Glucose (mg/dL) 115 H 110 H 120 H (75-99) mg/dL AST (17-59) U/L Total Protein (6.3-8.2) g/dL Albumin (3.5-5.0) g/dL 10/07/17 10/07/17 10/07/17 Range/Units 04:30 04:30 05:43 RBC 3.74 L (4.30-5.90) m/uL Hgb 11.0 L (13.0-17.5) gm/dL Hct 33.5 L (39.0-53.0) % Glucose 109 H (74-99) mg/dL POC Glucose (mg/dL) 132 H (75-99) mg/dL AST 15 L (17-59) U/L Total Protein 4.7 L (6.3-8.2) g/dL Albumin 2.7 L (3.5-5.0) g/dL 10/07/17 10/07/17 Range/Units 07:49 12:16 RBC (4.30-5.90) m/uL Hgb (13.0-17.5) gm/dL Hct (39.0-53.0) % Glucose (74-99) mg/dL POC Glucose (mg/dL) 150 H 148 H (75-99) mg/dL AST (17-59) U/L Total Protein (6.3-8.2) g/dL Albumin (3.5-5.0) g/dL Assessment and Plan Assessment: impression: 1 acute non-ST elevation myocardial infarction 2 severe coronary artery disease as noted on the cardiac catheterization, status post three-vessel coronary artery bypass surgery, postoperative day #2 3 history of tobacco dependence syndrome but no significant COPD symptoms based on the clinical history. However FEV1 testing is pending. 4 remote history of pulmonary embolism provoked by longer driving hours. 5 family history of premature coronary artery disease. Recommendation: continue incentive spirometry, ambulation, transfer to a monitor bed on selective today. Discharge planning likely over the weekend. Time with Patient: Less than 30
[2017-10-07 13:38] LABS: ABG Base Excess -2.4 mmol/L; ABG HCO3 21 mmol/L (21-25); ABG Oxygen Saturation 99.8 % (94-97); ABG PCO2 36 mmHg (35-45); ABG PH 7.39 (7.35-7.45); ABG PO2 230 mmHg (83-108); ABG Potassium Whole Blood 4.8 mmol/L (3.4-4.5); ABG Sodium Whole Blood 150 mmol/L (135-146); ABG TCO2 23 mmol/L (19-24)
[2017-10-07 13:39] LABS: ABG HCO3 23 mmol/L (21-25); ABG PCO2 45 mmHg (35-45); ABG PH 7.33 (7.35-7.45); ABG PO2 106 mmHg (83-108); ABG TCO2 24 mmol/L (19-24)
[2017-10-07 13:40] LABS: ABG Base Excess -2.8 mmol/L; ABG Oxygen Saturation 97.6 % (94-97); ABG Potassium Whole Blood 4.5 mmol/L (3.4-4.5); ABG Sodium Whole Blood 143 mmol/L (135-146)
[2017-10-07 13:41] LABS: ABG Base Excess -3.5 mmol/L; ABG HCO3 22 mmol/L (21-25); ABG Oxygen Saturation 99.9 % (94-97); ABG PCO2 42 mmHg (35-45); ABG PH 7.33 (7.35-7.45); ABG PO2 351 mmHg (83-108); ABG Potassium Whole Blood 4.4 mmol/L (3.4-4.5); ABG Sodium Whole Blood 140 mmol/L (135-146); ABG TCO2 23 mmol/L (19-24)
[2017-10-07 13:42] LABS: ABG Base Excess -1.3 mmol/L; ABG HCO3 24 mmol/L (21-25); ABG Oxygen Saturation 99.8 % (94-97); ABG PCO2 45 mmHg (35-45); ABG PH 7.35 (7.35-7.45); ABG PO2 231 mmHg (83-108); ABG TCO2 25 mmol/L (19-24)
[2017-10-07 13:43] LABS: ABG Potassium Whole Blood 5.2 mmol/L (3.4-4.5); ABG Sodium Whole Blood 139 mmol/L (135-146)
[2017-10-07 13:43] LABS: ABG Base Excess -1.2 mmol/L; ABG HCO3 23 mmol/L (21-25); ABG PCO2 40 mmHg (35-45); ABG PH 7.39 (7.35-7.45); ABG PO2 218 mmHg (83-108); ABG TCO2 24 mmol/L (19-24)
[2017-10-07 13:44] LABS: ABG Oxygen Saturation 99.8 % (94-97); ABG Potassium Whole Blood 4.8 mmol/L (3.4-4.5); ABG Sodium Whole Blood 139 mmol/L (135-146)
[2017-10-07 13:44] LABS: ABG HCO3 23 mmol/L (21-25); ABG PCO2 43 mmHg (35-45); ABG PH 7.35 (7.35-7.45); ABG PO2 284 mmHg (83-108)
--- NOTE | 2017-10-07 13:44 | P.CONS ---
History of Present Illness - Chief Complaint Cardiac debility - History of Present Illness I had the opportunity to see patient for inpatient rehab consultation with regard to cardiac debility. He was admitted to [facility] October 01 with chest pain. Found to have non-STEMI. Clear for surgery on 10/06 underwent three- vessel bypass. Postoperative chest x-ray demonstrates atelectasis. PT and OT prescribed. Patient reports ambulating in room independently. Seen in consultation a Drs. Montiel and Trevor. Previous functional history as elicited from patient: 52-year-old right-handed white male who is lives and 2 floor home alone. Works full-time. Indeed independent including cooking, laundry, driving. Was up to a pack a smoker but now quit. Denies alcohol. Regular doctors Dr. Phipps. Family history of father with cardiac disease. Review of Systems Review of systems: ENT: Denies sneezes or discharge. Eyes: Denies discharge or photophobia. Cardiac: Denies chest pain or palpitation. Pulmonary: Denies cough or shortness of breath. Gastrointestinal: Denies nausea, emesis, constipation, diarrhea. Genitourinary: Denies discharge or frequency. Musculoskeletal: Denies muscle or bone aches. Neurologic: Denies motor or sensory change. Endocrine: Denies shakes or sweats. Oncology: Denies cancers. Dermatologic: Denies rash, itching, pruritus. ALLERGY/immunology: Denies sneezes, rashes. Past Medical History Past Medical History: Diabetes Mellitus, Myocardial Infarction (OH), Osteoarthritis (OA), Pulmonary Embolus (PE) Additional Past Medical History / Comment(s): pt states diabetes has resolved after 62 lb weight loss Last Myocardial Infarction Date:: 2 years ago History of Any Multi-Drug Resistant Organisms: None Reported Past Surgical History: Orthopedic Surgery Additional Past Surgical History / Comment(s): Right leg steel [facility], stent placed in gallbladder, as of 10-02 stent is out Past Anesthesia/Blood Transfusion Reactions: Previous Problems w/ Anesthesia Additional Past Anesthesia/Blood Transfusion Reaction / Comm: Stopped breathing during choly Past Psychological History: No Psychological Hx Reported Smoking Status: Current every day smoker Past Alcohol Use History: None Reported Past Drug Use History: None Reported - Past Family History Father Family Medical History: Coronary Artery Disease (CAD) Additional Family Medical History / Comment(s): Father had double coronary bypass surgery in his 50s. Mother Family Medical History: No Reported History Medications and Allergies Home Medications Medication Instructions Recorded Confirmed Type No Known Home Medications [No 10/02/17 10/02/17 History Known Home Medications] Allergies Allergy/AdvReac Type Severity Reaction Status Date / Time No Known Allergies Allergy Verified 10/05/17 06:19 Physical Exam Vitals: Vital Signs Temp Pulse Resp BP Pulse Ox 10/07/17 13:00 91 20 90/47 10/07/17 12:30 98.0 F 91 24 90/47 95 10/07/17 12:00 94 20 10/07/17 11:30 97 18 10/07/17 11:00 101 H 18 10/07/17 10:30 100 21 103/59 10/07/17 10:00 94 18 103/59 95 10/07/17 09:30 90 18 99/49 10/07/17 09:00 99 18 93/53 10/07/17 08:30 95 18 93/53 99 10/07/17 08:00 98.6 F 95 19 93/53 100 10/07/17 07:30 103 H 19 88/52 98 10/07/17 07:00 90 18 88/52 98 10/07/17 06:30 89 18 96/53 97 10/07/17 06:00 89 14 99/54 100 10/07/17 05:30 86 16 99/54 99 10/07/17 05:00 87 17 100/53 100 10/07/17 04:30 82 16 97/56 99 10/07/17 04:00 98.3 F 79 12 95/52 99 10/07/17 03:30 89 20 93/55 98 10/07/17 03:05 13 10/07/17 03:00 78 12 87/53 97 10/07/17 02:30 80 13 94/50 98 10/07/17 02:00 74 12 86/53 98 10/07/17 01:31 82 13 88/52 99 10/07/17 01:00 78 12 85/52 99 10/07/17 00:30 79 13 93/54 98 10/07/17 00:00 98.9 F 83 13 90/52 99 10/06/17 23:30 80 14 91/54 99 10/06/17 23:00 80 14 97/52 98 10/06/17 22:30 79 15 85/52 99 10/06/17 22:00 84 14 87/52 98 10/06/17 21:30 81 20 89/51 97 10/06/17 21:00 84 17 92/50 97 10/06/17 20:30 90 28 H 110/51 98 10/06/17 20:00 98.9 F 88 16 94/49 97 10/06/17 19:30 92 20 84/51 97 10/06/17 19:01 96 21 96/55 97 10/06/17 19:00 96 25 H 96/55 96 10/06/17 18:30 94 16 83/53 97 10/06/17 18:00 99 20 96/61 97 10/06/17 17:30 94 21 85/52 97 10/06/17 17:00 93 23 97/51 10/06/17 16:30 75 18 85/57 99 10/06/17 16:00 98.1 F 74 12 91/55 98 10/06/17 15:30 72 11 L 90/53 97 10/06/17 15:00 73 9 L 92/51 98 10/06/17 14:30 74 12 91/55 98 10/06/17 14:00 75 14 93/51 99 Intake and Output 10/06/17 10/07/17 10/07/17 22:59 06:59 14:59 Intake Total 290.870 214 538 Output Total 568 845 280 Balance -277.130 -631 258 Intake: IV 274 214 58 ACETAMINOPHEN IV (For NPO 50 ) 1,000 mg In Empty Bag 1 bag @ 400 mls/hr IVPB Q6HR [facility] Rx#:[id number] Lactated Ringers 1,000 ml 200 190 50 @ 20 mls/hr IV .Q24H [facility] Rx#:[id number] Pressure Bag 24 24 8 Intake, IV Titration 16.870 Amount Insulin Regular 100 unit 16.870 In Sodium Chloride 0.9% 100 ml @ Per Protocol IV .Q0M [facility] Rx#:[id number] Oral 480 Output: Chest Tube Drainage 38 145 30 Chest Tube Mediastinal 20 95 20 left pleural chest tube 18 50 10 Urine 530 700 250 Other: Voiding Method Indwelling Catheter Indwelling Catheter Urinal # Voids 1 1 1 Weight 94.8 kg 94.3 kg 94.3 kg Patient Weight 10/08/17 06:59 Weight 94.3 kg Skin: Good color, texture, turgor. General: Overweight to obese and comfortable appearance. Head: Normocephalic, atraumatic. Eyes: Symmetric. Pupils equal round. Ears: Symmetric. Hearing within normal limits. Mouth: Clear. Neck: Supple. Carotid without bruit. Cardiac: Regular rate and rhythm. Wound dressed clean. Wearing harness. Lungs: Clear anteriorly and posteriorly. Abdomen: Soft active nontender. Overweight. Extremities: Normal tone. Overweight. Neurological: Mental status: Alert, cooperative, pleasant. Cranial nerves: Symmetric facial tone and trapezius. Motor: Good active movement all 4 limbs. Sensation: Intact throughout. DTRs: Symmetric and equal throughout. Mobility: Reports stands and ambulates around room on own. Results CBC & Chem 7: 10/07/17 04:30 10/07/17 04:30 Labs: Abnormal Lab Results - Last 24 Hours (Table) 10/06/17 10/06/17 10/06/17 Range/Units 08:57 15:12 17:00 RBC (4.30-5.90) m/uL Hgb (13.0-17.5) gm/dL Hct (39.0-53.0) % ABG pO2 230 H (83-108) mmHg ABG O2 Saturation 99.8 H (94-97) % ABG Sodium 150 H (135-146) mmol/L ABG Potassium 4.8 H (3.4-4.5) mmol/L Glucose (74-99) mg/dL POC Glucose (mg/dL) 147 H 140 H (75-99) mg/dL AST (17-59) U/L Total Protein (6.3-8.2) g/dL Albumin (3.5-5.0) g/dL Arterial Blood Potassium 4.8 H (3.4-4.5) mmol/L 10/06/17 10/06/17 10/06/17 Range/Units 19:02 20:01 21:07 RBC (4.30-5.90) m/uL Hgb (13.0-17.5) gm/dL Hct (39.0-53.0) % ABG pO2 (83-108) mmHg ABG O2 Saturation (94-97) % ABG Sodium (135-146) mmol/L ABG Potassium (3.4-4.5) mmol/L Glucose (74-99) mg/dL POC Glucose (mg/dL) 196 H 165 H 124 H (75-99) mg/dL AST (17-59) U/L Total Protein (6.3-8.2) g/dL Albumin (3.5-5.0) g/dL Arterial Blood Potassium (3.4-4.5) mmol/L 10/06/17 10/06/17 10/07/17 Range/Units 22:08 23:24 00:09 RBC (4.30-5.90) m/uL Hgb (13.0-17.5) gm/dL Hct (39.0-53.0) % ABG pO2 (83-108) mmHg ABG O2 Saturation (94-97) % ABG Sodium (135-146) mmol/L ABG Potassium (3.4-4.5) mmol/L Glucose (74-99) mg/dL POC Glucose (mg/dL) 131 H 110 H 122 H (75-99) mg/dL AST (17-59) U/L Total Protein (6.3-8.2) g/dL Albumin (3.5-5.0) g/dL Arterial Blood Potassium (3.4-4.5) mmol/L 10/07/17 10/07/17 10/07/17 Range/Units 01:53 03:29 04:29 RBC (4.30-5.90) m/uL Hgb (13.0-17.5) gm/dL Hct (39.0-53.0) % ABG pO2 (83-108) mmHg ABG O2 Saturation (94-97) % ABG Sodium (135-146) mmol/L ABG Potassium (3.4-4.5) mmol/L Glucose (74-99) mg/dL POC Glucose (mg/dL) 115 H 110 H 120 H (75-99) mg/dL AST (17-59) U/L Total Protein (6.3-8.2) g/dL Albumin (3.5-5.0) g/dL Arterial Blood Potassium (3.4-4.5) mmol/L 10/07/17 10/07/17 10/07/17 Range/Units 04:30 04:30 05:43 RBC 3.74 L (4.30-5.90) m/uL Hgb 11.0 L (13.0-17.5) gm/dL Hct 33.5 L (39.0-53.0) % ABG pO2 (83-108) mmHg ABG O2 Saturation (94-97) % ABG Sodium (135-146) mmol/L ABG Potassium (3.4-4.5) mmol/L Glucose 109 H (74-99) mg/dL POC Glucose (mg/dL) 132 H (75-99) mg/dL AST 15 L (17-59) U/L Total Protein 4.7 L (6.3-8.2) g/dL Albumin 2.7 L (3.5-5.0) g/dL Arterial Blood Potassium (3.4-4.5) mmol/L 10/07/17 10/07/17 Range/Units 07:49 12:16 RBC (4.30-5.90) m/uL Hgb (13.0-17.5) gm/dL Hct (39.0-53.0) % ABG pO2 (83-108) mmHg ABG O2 Saturation (94-97) % ABG Sodium (135-146) mmol/L ABG Potassium (3.4-4.5) mmol/L Glucose (74-99) mg/dL POC Glucose (mg/dL) 150 H 148 H (75-99) mg/dL AST (17-59) U/L Total Protein (6.3-8.2) g/dL Albumin (3.5-5.0) g/dL Arterial Blood Potassium (3.4-4.5) mmol/L Chest x-ray: report reviewed (Demonstrates postoperative change.) Assessment and Plan (1) NSTEMI (non-ST elevated myocardial infarction) Current Visit: Yes Status: Acute Code(s): I21.4 - NON-ST ELEVATION (NSTEMI) MYOCARDIAL INFARCTION SNOMED Code(s): 484039902 Plan: Impression: 1. Cardiac debility. 2. Non-STEMI, status post coronary bypassing. 3. Diabetes. 4. Osteoarthritis. 5. History of OH and PE. Comments and plan: PT and OT ordered. Anticipate patient will do well with therapies. Discussed with cardiac nurse.
[2017-10-07 13:45] LABS: ABG HCO3 23 mmol/L (21-25); ABG PCO2 46 mmHg (35-45); ABG PH 7.31 (7.35-7.45); ABG PO2 227 mmHg (83-108)
[2017-10-07 13:45] LABS: ABG Base Excess -2.4 mmol/L; ABG Oxygen Saturation 99.9 % (94-97); ABG Potassium Whole Blood 4.6 mmol/L (3.4-4.5); ABG Sodium Whole Blood 139 mmol/L (135-146); ABG TCO2 24 mmol/L (19-24)
[2017-10-07 13:46] LABS: ABG Base Excess -3.2 mmol/L; ABG Oxygen Saturation 99.7 % (94-97); ABG Potassium Whole Blood 3.9 mmol/L (3.4-4.5); ABG Sodium Whole Blood 141 mmol/L (135-146); ABG TCO2 24 mmol/L (19-24)
--- NOTE | 2017-10-07 16:35 | PN ---
PROGRESS NOTE DATE OF SERVICE: 10/07/2017 CHIEF COMPLAINT: Status post CABG. HISTORY OF PRESENT ILLNESS: This gentleman is doing well. There are no mental issues. He remains awake and alert. He has had no shortness of breath, hemoptysis, difficulty with voiding, etc. Tubes are being removed. PHYSICAL EXAMINATION: Breath sounds are heard on both sides and the incision is dry. IMPRESSION: Status post coronary artery bypass grafting. PLAN: He is being cleared of chest tubes as well as others and will be moved to telemetry. MMODL / IJN: [id number] /
[2017-10-07 17:07] LABS: Glucose,Whole Blood 142 mg/dL (75-99)
[2017-10-07] MEDS ORDERED: INSULIN ASPART 100 UNIT/ML 1 ML 10 ML VIAL SQ SCH (17:30)
[2017-10-07 20:39] LABS: Glucose,Whole Blood 186 mg/dL (75-99)
[2017-10-07] MEDS: SENNOSIDES-DOCUSATE SODIUM 1 EACH TAB PO SCH (20:48)
[2017-10-07] MEDS: HYDROcodone/APAP 5-325MG 1 EACH TAB PO PRN (20:50)
[2017-10-07] MEDS ORDERED: INSULIN NPH 300 UNIT/3 ML VIAL SQ SCH (21:00)
[2017-10-08] MEDS: KETOROLAC 30 MG/ML 1 ML VIAL IVP SCH ×5 (00:33→23:52)
[2017-10-08] MEDS: HEPARIN SODIUM,PORCINE 5,000 UNIT/ML 1 ML VIAL SQ SCH ×4 (00:34→23:51)
[2017-10-08 02:09] LABS: Glucose,Whole Blood 100 mg/dL (75-99)
--- NOTE | 2017-10-08 06:56 | XR ---
EXAMINATION TYPE: XR chest 2V DATE OF EXAM: 10/08/2017 HISTORY: post cardiac surgery. REFERENCE: Previous study dated 10/07/2017. FINDINGS: There has been a midline sternotomy. The patient's left pleural drain has been removed. The heart is enlarged. There is left basilar airspace disease. There are small, bilateral effusions, greater on the left than the right. IMPRESSION: CONTINUING POSTOPERATIVE CHANGE.
[2017-10-08 07:53] LABS: HCT 35.5 % (39.0-53.0); HGB 11.4 gm/dL (13.0-17.5); MCH 29.5 pg (25.0-35.0); MCHC 32.1 g/dL (31.0-37.0); Mean Platelet Volume 8.5; Platelet Count 220 k/uL (150-450); RBC 3.86 m/uL (4.30-5.90); RDW 13.1 % (11.5-15.5); WBC 7.7 k/uL (3.8-10.6)
[2017-10-08 08:08] LABS: Glucose,Whole Blood 101 mg/dL (75-99)
[2017-10-08 08:19] LABS: ALT 27 U/L (21-72); AST 12 U/L (17-59); Albumin 2.9 g/dL (3.5-5.0); Alkaline Phosphatase 70 U/L (38-126); Anion Gap 7 mmol/L; Blood Urea Nitrogen 20 mg/dL (9-20); Calcium 8.7 mg/dL (8.4-10.2); Carbon Dioxide 28 mmol/L (22-30); Chloride 105 mmol/L (98-107); Glucose 110 mg/dL (74-99); Magnesium 2.1 mg/dL (1.6-2.3); Potassium 4.2 mmol/L (3.5-5.1); Sodium 140 mmol/L (137-145); Total Bilirubin 0.6 mg/dL (0.2-1.3); Total Protein 5.2 g/dL (6.3-8.2)
--- NOTE | 2017-10-08 08:49 | P.PN ---
Subjective Progress Note Date: 10/08/17 Principal diagnosis: Triple-vessel coronary artery disease, non-STEMI. History of pulmonary embolism , tobacco dependence, family history of premature coronary artery disease with his father having open heart surgery in his 50s. Hyperlipidemia with LDL 113. Previous history of diabetes mellitus, resolved after weight loss, current hemoglobin A1c 6.7%. Preoperative nasal swab positive for MSSA. POD #3 urgent coronary artery bypass grafting 3 vessels, left internal mammary artery to the left anterior descending artery, reverse saphenous vein graft to the diagonal artery, reverse saphenous vein graft to the right coronary artery, endoscopic vein harvest of the left greater saphenous vein, epi-aortic ultrasound, and intraoperative transesophageal echocardiogram. Patient is currently sitting up in the recliner in no acute distress. Denies chest pain, shortness of breath. No new concerns. Chest tubes removed yesterday. Orders placed yesterday to transfer patient to [facility]. [facility]. Patient has ambulated in the hallway multiple times. Objective - Vital Signs Vital signs: Vital Signs Temp 98.2 F 10/08/17 04:00 Pulse 79 10/08/17 05:00 Resp 13 10/08/17 05:00 BP 96/54 10/08/17 05:00 Pulse Ox 95 10/08/17 04:00 Intake & Output 10/07/17 10/08/17 10/08/17 18:59 06:59 18:59 Intake Total 538 0 Output Total 480 250 Balance 58 -250 Weight 94.3 kg Intake: IV 58 0 Lactated Ringers 1,000 ml 50 0 @ 20 mls/hr IV .Q24H [facility] Rx#:[id number] Pressure Bag 8 0 Oral 480 Output: Chest Tube Drainage 30 Chest Tube Mediastinal 20 left pleural chest tube 10 Urine 450 250 Other: Voiding Method Urinal Urinal # Voids 0 ABP, PAP, CO, CI - Last Documented Arterial Blood Pressure 121/105 Pulmonary Artery Pressure 21/12 Cardiac Output 6.1 Cardiac Index 2.8 - Constitutional General appearance: Present: cooperative, no acute distress - Respiratory Details: Lungs sounds diminished bilaterally. Respirations even, nonlabored. Currently on room air with oxygen saturation 95%. Able to achieve 1500 mL on his incentive spirometry. Chest x-ray reviewed, small bilateral pleural effusions present, left greater than right. - Cardiovascular Details: S1, S2 present. Regular rate and rhythm, sinus rhythm on telemetry. Sternum stable. A/V epicardial pacemaker wires present, grounded. Palpable peripheral pulses bilaterally. No edema present. No calf pain or tenderness noted. Heart hugger in place with patient demonstrating appropriate use. Antiembolism stockings, SCDs present. - Gastrointestinal Gastrointestinal Comment(s): Abdomen soft, nontender, nondistended. Active bowel sounds 4 quadrants. Tolerating diet. Positive flatus, no BM yet. - Genitourinary Genitourinary Comment(s): Continues to void clear, yellow urine. Output 200-250 mL at a time. - Integumentary Integumentary Comment(s): Sternal incision well approximated and covered with dry intact dressing. Right lower extremity EVH site well approximated with Dermabond. Skin warm, dry, pink with evidence of good perfusion. - Neurologic Neurologic: Present: CNII-XII intact - Musculoskeletal Musculoskeletal: Present: gait normal, strength equal bilaterally - Psychiatric Psychiatric: Present: A&O x's 3, appropriate affect, intact judgment & insight - Allied health notes Allied health notes reviewed: nursing - Labs CBC & Chem 7: 10/08/17 07:35 10/08/17 07:35 Labs: Abnormal Lab Results - Last 24 Hours (Table) 10/06/17 10/06/17 10/06/17 Range/Units 08:57 10:26 11:07 RBC (4.30-5.90) m/uL Hgb (13.0-17.5) gm/dL Hct (39.0-53.0) % ABG pH 7.33 L 7.33 L (7.35-7.45) ABG pCO2 (35-45) mmHg ABG pO2 230 H 351 H (83-108) mmHg ABG Total CO2 (19-24) mmol/L ABG O2 Saturation 99.8 H 97.6 H 99.9 H (94-97) % ABG Sodium 150 H (135-146) mmol/L ABG Potassium 4.8 H (3.4-4.5) mmol/L Glucose (74-99) mg/dL POC Glucose (mg/dL) (75-99) mg/dL AST (17-59) U/L Total Protein (6.3-8.2) g/dL Albumin (3.5-5.0) g/dL Arterial Blood Potassium 4.8 H (3.4-4.5) mmol/L 10/06/17 10/06/17 10/06/17 Range/Units 11:43 12:10 12:43 RBC (4.30-5.90) m/uL Hgb (13.0-17.5) gm/dL Hct (39.0-53.0) % ABG pH (7.35-7.45) ABG pCO2 (35-45) mmHg ABG pO2 231 H 218 H 284 H (83-108) mmHg ABG Total CO2 25 H (19-24) mmol/L ABG O2 Saturation 99.8 H 99.8 H 99.9 H (94-97) % ABG Sodium (135-146) mmol/L ABG Potassium 5.2 H 4.8 H 4.6 H (3.4-4.5) mmol/L Glucose (74-99) mg/dL POC Glucose (mg/dL) (75-99) mg/dL AST (17-59) U/L Total Protein (6.3-8.2) g/dL Albumin (3.5-5.0) g/dL Arterial Blood Potassium 5.2 H 4.8 H 4.6 H (3.4-4.5) mmol/L 10/06/17 10/07/17 10/07/17 Range/Units 13:22 12:16 17:05 RBC (4.30-5.90) m/uL Hgb (13.0-17.5) gm/dL Hct (39.0-53.0) % ABG pH 7.31 L (7.35-7.45) ABG pCO2 46 H (35-45) mmHg ABG pO2 227 H (83-108) mmHg ABG Total CO2 (19-24) mmol/L ABG O2 Saturation 99.7 H (94-97) % ABG Sodium (135-146) mmol/L ABG Potassium (3.4-4.5) mmol/L Glucose (74-99) mg/dL POC Glucose (mg/dL) 148 H 142 H (75-99) mg/dL AST (17-59) U/L Total Protein (6.3-8.2) g/dL Albumin (3.5-5.0) g/dL Arterial Blood Potassium (3.4-4.5) mmol/L 10/07/17 10/08/17 10/08/17 Range/Units 20:36 02:07 07:33 RBC (4.30-5.90) m/uL Hgb (13.0-17.5) gm/dL Hct (39.0-53.0) % ABG pH (7.35-7.45) ABG pCO2 (35-45) mmHg ABG pO2 (83-108) mmHg ABG Total CO2 (19-24) mmol/L ABG O2 Saturation (94-97) % ABG Sodium (135-146) mmol/L ABG Potassium (3.4-4.5) mmol/L Glucose (74-99) mg/dL POC Glucose (mg/dL) 186 H 100 H 101 H (75-99) mg/dL AST (17-59) U/L Total Protein (6.3-8.2) g/dL Albumin (3.5-5.0) g/dL Arterial Blood Potassium (3.4-4.5) mmol/L 10/08/17 10/08/17 Range/Units 07:35 07:35 RBC 3.86 L (4.30-5.90) m/uL Hgb 11.4 L (13.0-17.5) gm/dL Hct 35.5 L (39.0-53.0) % ABG pH (7.35-7.45) ABG pCO2 (35-45) mmHg ABG pO2 (83-108) mmHg ABG Total CO2 (19-24) mmol/L ABG O2 Saturation (94-97) % ABG Sodium (135-146) mmol/L ABG Potassium (3.4-4.5) mmol/L Glucose 110 H (74-99) mg/dL POC Glucose (mg/dL) (75-99) mg/dL AST 12 L (17-59) U/L Total Protein 5.2 L (6.3-8.2) g/dL Albumin 2.9 L (3.5-5.0) g/dL Arterial Blood Potassium (3.4-4.5) mmol/L - Imaging and Cardiology Chest x-ray: report reviewed, image reviewed Assessment and Plan (1) Tobacco dependence Current Visit: Yes Status: Chronic Code(s): F17.200 - NICOTINE DEPENDENCE, UNSPECIFIED, UNCOMPLICATED SNOMED Code(s): 36786973 (2) History of pulmonary embolism Current Visit: No Status: Resolved Code(s): Z86.711 - PERSONAL HISTORY OF PULMONARY EMBOLISM SNOMED Code(s): 062869380 (3) Family history of premature coronary artery disease Current Visit: Yes Status: Chronic Code(s): Z82.49 - FAMILY HX OF ISCHEM HEART DIS AND OTH DIS OF THE CIRC SYS SNOMED Code(s): 336411613 (4) NSTEMI (non-ST elevated myocardial infarction) Current Visit: Yes Status: Acute Code(s): I21.4 - NON-ST ELEVATION (NSTEMI) MYOCARDIAL INFARCTION SNOMED Code(s): 175577257 (5) Chest pain Current Visit: Yes Status: Acute Code(s): R07.9 - CHEST PAIN, UNSPECIFIED SNOMED Code(s): 78838750 (6) Hyperlipidemia Current Visit: Yes Status: Chronic Code(s): E78.5 - HYPERLIPIDEMIA, UNSPECIFIED SNOMED Code(s): 23831964 (7) History of diabetes mellitus, type II Current Visit: No Status: Resolved Code(s): Z86.39 - PERSONAL HISTORY OF ENDO, NUTRITIONAL AND METABOLIC DISEASE SNOMED Code(s): 318389347 Plan: 1. Continue aspirin, statin, beta keven. Will maximize beta keven as tolerated. 2. Encourage incentive spirometry use. 3. Encourage smoking cessation. 4. Increase activity, ambulate in hallway. PT/OT/cardiac rehab following. 5. Monitor daily labs, chest x-rays. 6. Diabetic management per primary care service. 7. Continue mupirocin for preoperative MSSA nasal swab. 8. Transfer out of ICU to E[facility] selective care when bed available. 9. Patient will need rehab at discharge as he lives alone. Dr. Reed consulted for inpatient rehab. 10. More recommendations to follow. Time with Patient: Greater than 30
[2017-10-08] MEDS: INSULIN ASPART 100 UNIT/ML 1 ML 10 ML VIAL SQ SCH ×4 (09:08→20:13)
[2017-10-08] MEDS: METOPROLOL TARTRATE 12.5 MG TAB PO SCH ×2 (09:16→20:14)
[2017-10-08] MEDS: ASPIRIN 325 MG TAB PO SCH (09:16)
[2017-10-08] MEDS: CLOPIDOGREL 75 MG TAB PO SCH (09:16)
[2017-10-08] MEDS: PANTOPRAZOLE 40 MG TABLET PO SCH (09:16)
[2017-10-08] MEDS: ATORVASTATIN 40 MG TAB PO SCH (09:16)
[2017-10-08] MEDS: INSULN ASP PRT/INSULIN ASPART 100 UNIT/ML 10 ML VIAL SQ SCH (09:16)
[2017-10-08] MEDS: MUPIROCIN 2% OINT 22 GM TUBE NASAL SCH ×2 (09:17→20:14)
--- NOTE | 2017-10-08 10:54 | PN ---
PROGRESS NOTE Mr. Ryder a 52-year-old male who presented with non ST-segment elevation myocardial infarction, underwent cardiac catheterization and coronary artery bypass grafting. He is doing well this morning. Ambulating without difficulty. Continues to be in sinus mechanism, has no evidence of tachy or toby arrhythmia. He has been stable. He continues to be at this time on aspirin once a day, Lipitor 40 mg daily, Plavix 75 mg daily, and metoprolol tartrate 12.5 mg twice a day. PHYSICAL EXAMINATION: Blood pressure running in the high 90s with the heart rate in 70s. LUNGS: No wheezes or rales. HEART: Regular rhythm S1, S2. No S3. No rub. ABDOMEN: Soft, nontender. EXTREMITIES: No edema. LAB DATA: Lab data revealed BUN and creatinine 20 and 0.8, potassium 4.2. Hemoglobin is 11.4. IMPRESSION: 1. Status post coronary artery bypass grafting, stable. 2. Hyperlipidemia. RECOMMENDATION: From the cardiac standpoint, he is stable. We expect he should be able to be transferred to telemetry floor. Increase his level of activity. MMODL / IJN: [id number] /
--- NOTE | 2017-10-08 11:15 | P.PN ---
Subjective Progress Note Date: 10/08/17 Principal diagnosis: Triple-vessel coronary artery disease, non-ST elevation myocardial infarction, status post emergent coronary artery bypass grafting 3 vessels, postoperative day #3 This is a 52-year-old white male with triple vessel coronary artery disease, presented recently with non-ST elevation myocardial infarction, remote history of pulmonary embolism, strong family history of premature coronary artery disease, patient had urgent coronary artery bypass grafting 3 vessels, CASTREJON to LAD, reverse saphenous vein graft to diagonal branch reverse saphenous vein graft to right coronary artery. I saw the patient preoperatively and I saw him yesterday postoperatively. 3 hours after his surgery, patient was extubated uneventfully. He tolerated the extubation well, doing great today, relatively asymptomatic, doing excellent with incentive spirometry, chest x-ray showed minimal atelectasis at the left base, felt to be not clinically significant. CBC is relatively normal. Basic metabolic profile is normal renal profile is normal. Reevaluated today on 10/07/2017, patient is doing well, chest x-ray is reassuring except for minimal tiny bit of atelectasis at the left base as expected. Tubes have been removed. Patient denies any shortness of breath no cough no wheezing no chest pain.all labs were reviewed and they seem to be relatively unremarkable. Reevaluated today on 10/08/2017, doing great, asymptomatic, no cough no wheezing no shortness of breath, no pain, chest x-ray showed minimal atelectasis and a small tiny left pleural effusion. CBC is relatively normal hemoglobin is 11.4, basic metabolic profile and renal profile are normal. Objective - Vital Signs Vital signs: Vital Signs Temp 97.1 F L 10/08/17 09:07 Pulse 95 10/08/17 09:07 Resp 12 10/08/17 09:07 BP 91/51 10/08/17 09:07 Pulse Ox 95 10/08/17 04:00 Intake & Output 10/07/17 10/08/17 10/08/17 18:59 06:59 18:59 Intake Total 538 0 Output Total 480 250 Balance 58 -250 Weight 94.3 kg Intake: IV 58 0 Lactated Ringers 1,000 ml 50 0 @ 20 mls/hr IV .Q24H [facility] Rx#:[id number] Pressure Bag 8 0 Oral 480 Output: Chest Tube Drainage 30 Chest Tube Mediastinal 20 left pleural chest tube 10 Urine 450 250 Other: Voiding Method Urinal Urinal # Voids 0 2 ABP, PAP, CO, CI - Last Documented Arterial Blood Pressure 121/105 Pulmonary Artery Pressure 21/12 Cardiac Output 6.1 Cardiac Index 2.8 - Exam Physical Exam: Revealed a 52-year-old white male in no distress, on nasal cannula. HEENT:[Neck is supple.] [No neck masses.] [No thyromegaly.] [No JVD.] Chest: [Diminished breath sounds at the left base, no crackles nor rhonchi no wheezes.] Cardiac Exam: [Normal S1 and S2, no S3 gallop, no murmur.] Abdomen: [Soft, nontender, no megaly, no rebound, no guarding, normal bowel sounds.] Extremities: [No clubbing, no edema, no cyanosis.] Neurological Exam: [No focal neurologic deficit. Lymphatics: No lymphadenopathy Psychiatric: Normal mood affect and mental status examination.] - Labs CBC & Chem 7: 10/08/17 07:35 10/08/17 07:35 Labs: Abnormal Lab Results - Last 24 Hours (Table) 10/06/17 10/06/17 10/06/17 Range/Units 08:57 10:26 11:07 RBC (4.30-5.90) m/uL Hgb (13.0-17.5) gm/dL Hct (39.0-53.0) % ABG pH 7.33 L 7.33 L (7.35-7.45) ABG pCO2 (35-45) mmHg ABG pO2 230 H 351 H (83-108) mmHg ABG Total CO2 (19-24) mmol/L ABG O2 Saturation 99.8 H 97.6 H 99.9 H (94-97) % ABG Sodium 150 H (135-146) mmol/L ABG Potassium 4.8 H (3.4-4.5) mmol/L Glucose (74-99) mg/dL POC Glucose (mg/dL) (75-99) mg/dL AST (17-59) U/L Total Protein (6.3-8.2) g/dL Albumin (3.5-5.0) g/dL Arterial Blood Potassium 4.8 H (3.4-4.5) mmol/L 01/08/1310/06/17 10/06/17 Range/Units 11:43 12:10 12:43 RBC (4.30-5.90) m/uL Hgb (13.0-17.5) gm/dL Hct (39.0-53.0) % ABG pH (7.35-7.45) ABG pCO2 (35-45) mmHg ABG pO2 231 H 218 H 284 H (83-108) mmHg ABG Total CO2 25 H (19-24) mmol/L ABG O2 Saturation 99.8 H 99.8 H 99.9 H (94-97) % ABG Sodium (135-146) mmol/L ABG Potassium 5.2 H 4.8 H 4.6 H (3.4-4.5) mmol/L Glucose (74-99) mg/dL POC Glucose (mg/dL) (75-99) mg/dL AST (17-59) U/L Total Protein (6.3-8.2) g/dL Albumin (3.5-5.0) g/dL Arterial Blood Potassium 5.2 H 4.8 H 4.6 H (3.4-4.5) mmol/L 10/06/17 10/07/17 10/07/17 Range/Units 13:22 12:16 17:05 RBC (4.30-5.90) m/uL Hgb (13.0-17.5) gm/dL Hct (39.0-53.0) % ABG pH 7.31 L (7.35-7.45) ABG pCO2 46 H (35-45) mmHg ABG pO2 227 H (83-108) mmHg ABG Total CO2 (19-24) mmol/L ABG O2 Saturation 99.7 H (94-97) % ABG Sodium (135-146) mmol/L ABG Potassium (3.4-4.5) mmol/L Glucose (74-99) mg/dL POC Glucose (mg/dL) 148 H 142 H (75-99) mg/dL AST (17-59) U/L Total Protein (6.3-8.2) g/dL Albumin (3.5-5.0) g/dL Arterial Blood Potassium (3.4-4.5) mmol/L 10/07/17 10/08/17 10/08/17 Range/Units 20:36 02:07 07:33 RBC (4.30-5.90) m/uL Hgb (13.0-17.5) gm/dL Hct (39.0-53.0) % ABG pH (7.35-7.45) ABG pCO2 (35-45) mmHg ABG pO2 (83-108) mmHg ABG Total CO2 (19-24) mmol/L ABG O2 Saturation (94-97) % ABG Sodium (135-146) mmol/L ABG Potassium (3.4-4.5) mmol/L Glucose (74-99) mg/dL POC Glucose (mg/dL) 186 H 100 H 101 H (75-99) mg/dL AST (17-59) U/L Total Protein (6.3-8.2) g/dL Albumin (3.5-5.0) g/dL Arterial Blood Potassium (3.4-4.5) mmol/L 10/08/17 10/08/17 Range/Units 07:35 07:35 RBC 3.86 L (4.30-5.90) m/uL Hgb 11.4 L (13.0-17.5) gm/dL Hct 35.5 L (39.0-53.0) % ABG pH (7.35-7.45) ABG pCO2 (35-45) mmHg ABG pO2 (83-108) mmHg ABG Total CO2 (19-24) mmol/L ABG O2 Saturation (94-97) % ABG Sodium (135-146) mmol/L ABG Potassium (3.4-4.5) mmol/L Glucose 110 H (74-99) mg/dL POC Glucose (mg/dL) (75-99) mg/dL AST 12 L (17-59) U/L Total Protein 5.2 L (6.3-8.2) g/dL Albumin 2.9 L (3.5-5.0) g/dL Arterial Blood Potassium (3.4-4.5) mmol/L Assessment and Plan Assessment: impression: 1 acute non-ST elevation myocardial infarction 2 severe coronary artery disease as noted on the cardiac catheterization, status post three-vessel coronary artery bypass surgery, postoperative day #3 3 history of tobacco dependence syndrome but no significant COPD symptoms based on the clinical history. However FEV1 testing is pending. 4 remote history of pulmonary embolism provoked by longer driving hours. 5 family history of premature coronary artery disease. 6 minimal left lower lobe atelectasis, and small tiny left pleural effusion no need for intervention, will likely resolve on its own and with incentive spirometry. Recommendation: continue incentive spirometry, ambulation, patient is presently on overflow from [facility]. Time with Patient: Less than 30
[2017-10-08 11:57] LABS: Glucose,Whole Blood 138 mg/dL (75-99)
--- NOTE | 2017-10-08 15:03 | PN ---
PROGRESS NOTE DATE OF SERVICE: 10/08/2017. CHIEF COMPLAINT: Status post CABG. HISTORY OF PRESENT ILLNESS: This gentleman is doing well and awaits opening for bed [facility]. All the tubes are out. PHYSICAL EXAM: Vital signs are normal. Chest is clear. Cardiac exam is normal. Extremities are normal. IMPRESSION: 1. Status post CABG. 2. Coronary artery disease. 3. Recent myocardial infarction. PLAN: No change in program and he will go to telemetry when bed is available and home soon. MMODL / IJN: [id number] /
[2017-10-08 17:09] LABS: Glucose,Whole Blood 134 mg/dL (75-99)
[2017-10-08 20:13] LABS: Glucose,Whole Blood 198 mg/dL (75-99)
[2017-10-08] MEDS: SENNOSIDES-DOCUSATE SODIUM 1 EACH TAB PO SCH (20:14)
[2017-10-08 20:55] VITALS: RESP 16
[2017-10-09 04:46] LABS: HCT 32.4 % (39.0-53.0); HGB 10.4 gm/dL (13.0-17.5); MCH 29.9 pg (25.0-35.0); MCHC 32.1 g/dL (31.0-37.0); MCV 93.1 fL (80.0-100.0); Mean Platelet Volume 8.1; Platelet Count 235 k/uL (150-450); RBC 3.48 m/uL (4.30-5.90); RDW 13.6 % (11.5-15.5)
[2017-10-09 04:58] LABS: ALT 33 U/L (21-72); AST 13 U/L (17-59); Albumin 2.7 g/dL (3.5-5.0); Alkaline Phosphatase 69 U/L (38-126); Anion Gap 10 mmol/L; Blood Urea Nitrogen 20 mg/dL (9-20); Calcium 8.6 mg/dL (8.4-10.2); Carbon Dioxide 25 mmol/L (22-30); Chloride 106 mmol/L (98-107); Glucose 131 mg/dL (74-99); Potassium 4.3 mmol/L (3.5-5.1); Sodium 141 mmol/L (137-145); Total Bilirubin 0.5 mg/dL (0.2-1.3)
[2017-10-09] MEDS: KETOROLAC 30 MG/ML 1 ML VIAL IVP SCH ×4 (05:38→23:29)
--- NOTE | 2017-10-09 06:34 | XR ---
EXAMINATION TYPE: XR chest 2V DATE OF EXAM: 10/09/2017 HISTORY: post cardiac surgery. REFERENCE: Previous study dated 10/08/2017. FINDINGS: There has been a midline sternotomy. The heart is mildly enlarged. There is bibasilar airspace disease, worse on the left than the right. This is essentially unchanged from previous. There is a small left effusion. IMPRESSION: NO SIGNIFICANT INTERVAL CHANGE IN THE APPEARANCE OF THE CHEST.
[2017-10-09 07:29] LABS: Glucose,Whole Blood 134 mg/dL (75-99)
[2017-10-09] MEDS: INSULIN ASPART 100 UNIT/ML 1 ML 10 ML VIAL SQ SCH ×4 (08:06→20:37)
[2017-10-09] MEDS: HEPARIN SODIUM,PORCINE 5,000 UNIT/ML 1 ML VIAL SQ SCH ×3 (08:07→23:29)
[2017-10-09] MEDS: ASPIRIN 325 MG TAB PO SCH (08:07)
[2017-10-09] MEDS: PANTOPRAZOLE 40 MG TABLET PO SCH (08:07)
[2017-10-09] MEDS: CLOPIDOGREL 75 MG TAB PO SCH (08:08)
[2017-10-09] MEDS: METOPROLOL TARTRATE 12.5 MG TAB PO SCH ×2 (08:08→20:40)
[2017-10-09] MEDS: ATORVASTATIN 40 MG TAB PO SCH (08:08)
[2017-10-09] MEDS: MUPIROCIN 2% OINT 22 GM TUBE NASAL SCH ×2 (08:13→22:41)
--- NOTE | 2017-10-09 08:55 | PN ---
PROGRESS NOTE Mr. Ryder is 52-year-old male with a known history of coronary disease status post bypass grafting. He is doing well this morning. Ambulating without difficulty. He denies any chest pain. His breathing has been stable. He denies any dizziness or palpitation. He remains in sinus mechanism. He has been ambulating yesterday. He continued to be on aspirin once a day, Lipitor 40 mg daily, Plavix 75 mg daily, metoprolol tartrate 12.5 mg twice a day. PHYSICAL EXAMINATION: Blood pressure running in the high 90s with a heart rate in the 80s. LUNGS: Clear. Heart regular rate and rhythm. S1, S2. No S3. No rub. ABDOMEN: Soft, nontender. EXTREMITIES: No edema. LAB DATA: BUN and creatinine 20.8, potassium 4.3. IMPRESSION: 1. Status post coronary artery bypass grafting. 2. Hyperlipidemia. RECOMMENDATION: Patient should be able to be transferred to telemetry floor and I am hopeful he will be discharged home tomorrow. We will increase his level of activity. Depending on the trend of his blood pressure, further recommendation will be made. MMODL / IJN: [id number] /
--- NOTE | 2017-10-09 08:56 | P.PN ---
Subjective Progress Note Date: 10/09/17 Principal diagnosis: Triple-vessel coronary artery disease, non-STEMI. History of pulmonary embolism , tobacco dependence, family history of premature coronary artery disease with his father having open heart surgery in his 50s. Hyperlipidemia with LDL 113. Previous history of diabetes mellitus, resolved after weight loss, current hemoglobin A1c 6.7%. Preoperative nasal swab positive for MSSA. POD #4 urgent coronary artery bypass grafting 3 vessels, left internal mammary artery to the left anterior descending artery, reverse saphenous vein graft to the diagonal artery, reverse saphenous vein graft to the right coronary artery, endoscopic vein harvest of the left greater saphenous vein, epi-aortic ultrasound, and intraoperative transesophageal echocardiogram. Patient is currently sitting up in the recliner in no acute distress. Denies chest pain, shortness of breath. No new concerns. Transfer patient to [place] when bed available. Patient has ambulated in the hallway multiple times. Objective - Vital Signs Vital signs: Vital Signs Temp 98.1 F 10/08/17 20:00 Pulse 85 10/09/17 04:00 Resp 16 10/09/17 04:00 BP 97/56 10/08/17 20:00 Pulse Ox 97 10/08/17 20:00 Intake & Output 10/08/17 10/09/17 10/09/17 18:59 06:59 18:59 Output Total 0 Balance 0 Weight 94.3 kg 92.3 kg Output: Urine 0 Other: Voiding Method Urinal Urinal # Voids 2 1 ABP, PAP, CO, CI - Last Documented Arterial Blood Pressure 121/105 Pulmonary Artery Pressure 21/12 Cardiac Output 6.1 Cardiac Index 2.8 - Constitutional General appearance: Present: cooperative, no acute distress - Respiratory Details: Lungs sounds diminished bilaterally. Respirations even, nonlabored. Currently on room air with oxygen saturation 97%. Able to achieve 1500 mL on his incentive spirometry. Chest x-ray reviewed, small left pleural effusion present. - Cardiovascular Details: S1, S2 present. Regular rate and rhythm, sinus rhythm on telemetry. A/V epicardial pacemaker wires present, grounded. Sternum stable. Palpable peripheral pulses bilaterally. No edema present. No calf pain and or tenderness noted. Heart hugger in place with patient demonstrating appropriate use. Antiembolism stockings/SCDs present. - Gastrointestinal Gastrointestinal Comment(s): Abdomen soft, nontender, nondistended. Active bowel sounds 4 quadrants. Tolerating diet. Positive bowel movement yesterday. - Genitourinary Genitourinary Comment(s): Continues to void clear, yellow urine. - Integumentary Integumentary Comment(s): Sternal incision well approximated with dry intact dressing. Left lower extremity EVH site well approximated with Dermabond. Skin warm, pink, dry with evidence of good perfusion. - Neurologic Neurologic: Present: CNII-XII intact - Musculoskeletal Musculoskeletal: Present: gait normal, strength equal bilaterally - Psychiatric Psychiatric: Present: A&O x's 3, appropriate affect, intact judgment & insight - Allied health notes Allied health notes reviewed: nursing - Labs CBC & Chem 7: 10/09/17 04:28 10/09/17 04:28 Labs: Abnormal Lab Results - Last 24 Hours (Table) 10/08/17 10/08/17 10/08/17 Range/Units 11:54 17:07 20:11 RBC (4.30-5.90) m/uL Hgb (13.0-17.5) gm/dL Hct (39.0-53.0) % Glucose (74-99) mg/dL POC Glucose (mg/dL) 138 H 134 H 198 H (75-99) mg/dL AST (17-59) U/L Total Protein (6.3-8.2) g/dL Albumin (3.5-5.0) g/dL 10/09/17 10/09/17 10/09/17 Range/Units 04:28 04:28 07:27 RBC 3.48 L (4.30-5.90) m/uL Hgb 10.4 L (13.0-17.5) gm/dL Hct 32.4 L (39.0-53.0) % Glucose 131 H (74-99) mg/dL POC Glucose (mg/dL) 134 H (75-99) mg/dL AST 13 L (17-59) U/L Total Protein 5.0 L (6.3-8.2) g/dL Albumin 2.7 L (3.5-5.0) g/dL - Imaging and Cardiology Chest x-ray: report reviewed, image reviewed Assessment and Plan (1) Tobacco dependence Current Visit: Yes Status: Chronic Code(s): F17.200 - NICOTINE DEPENDENCE, UNSPECIFIED, UNCOMPLICATED SNOMED Code(s): 61933975 (2) History of pulmonary embolism Current Visit: No Status: Resolved Code(s): Z86.711 - PERSONAL HISTORY OF PULMONARY EMBOLISM SNOMED Code(s): 590729313 (3) Family history of premature coronary artery disease Current Visit: Yes Status: Chronic Code(s): Z82.49 - FAMILY HX OF ISCHEM HEART DIS AND OTH DIS OF THE CIRC SYS SNOMED Code(s): 313706805 (4) NSTEMI (non-ST elevated myocardial infarction) Current Visit: Yes Status: Acute Code(s): I21.4 - NON-ST ELEVATION (NSTEMI) MYOCARDIAL INFARCTION SNOMED Code(s): 639078016 (5) Chest pain Current Visit: Yes Status: Acute Code(s): R07.9 - CHEST PAIN, UNSPECIFIED SNOMED Code(s): 74343394 (6) Hyperlipidemia Current Visit: Yes Status: Chronic Code(s): E78.5 - HYPERLIPIDEMIA, UNSPECIFIED SNOMED Code(s): 46490828 (7) History of diabetes mellitus, type II Current Visit: No Status: Resolved Code(s): Z86.39 - PERSONAL HISTORY OF ENDO, NUTRITIONAL AND METABOLIC DISEASE SNOMED Code(s): 116815173 Plan: 1. Continue aspirin, statin, beta keven. Will maximize beta keven as tolerated. 2. Encourage incentive spirometry use. 3. Encourage smoking cessation. 4. Increase activity, ambulate in hallway. PT/OT/cardiac rehab following. 5. Monitor daily labs, chest x-rays. 6. Diabetic management per primary care service. 7. Continue mupirocin for preoperative MSSA nasal swab. 8. Transfer out of [facility] to [facility] when bed available. 9. Patient will need rehab at discharge as he lives alone. Anticipate discharge to rehab in the next [address] Reed consulted for inpatient rehab. 10. More recommendations to follow. Time with Patient: Greater than 30
[2017-10-09 11:37] LABS: Glucose,Whole Blood 156 mg/dL (75-99)
--- NOTE | 2017-10-09 11:57 | P.PN ---
Subjective Progress Note Date: 10/09/17 Principal diagnosis: Triple-vessel coronary artery disease, non-ST elevation myocardial infarction, status post emergent coronary artery bypass grafting 3 vessels, postoperative day #4 This is a 52-year-old white male with triple vessel coronary artery disease, presented recently with non-ST elevation myocardial infarction, remote history of pulmonary embolism, strong family history of premature coronary artery disease, patient had urgent coronary artery bypass grafting 3 vessels, CASTREJON to LAD, reverse saphenous vein graft to diagonal branch reverse saphenous vein graft to right coronary artery. I saw the patient preoperatively and I saw him yesterday postoperatively. 3 hours after his surgery, patient was extubated uneventfully. He tolerated the extubation well, doing great today, relatively asymptomatic, doing excellent with incentive spirometry, chest x-ray showed minimal atelectasis at the left base, felt to be not clinically significant. CBC is relatively normal. Basic metabolic profile is normal renal profile is normal. Reevaluated today on 10/07/2017, patient is doing well, chest x-ray is reassuring except for minimal tiny bit of atelectasis at the left base as expected. Tubes have been removed. Patient denies any shortness of breath no cough no wheezing no chest pain.all labs were reviewed and they seem to be relatively unremarkable. Reevaluated today on 10/08/2017, doing great, asymptomatic, no cough no wheezing no shortness of breath, no pain, chest x-ray showed minimal atelectasis and a small tiny left pleural effusion. CBC is relatively normal hemoglobin is 11.4, basic metabolic profile and renal profile are normal. Reevaluated today on 10/09/2017, continues to do extremely well, asymptomatic, off oxygen, chest x-ray continues to show minimal atelectasis of the left base.all labs were reviewed, hemoglobin is 10.4 basic metabolic profile is normal. Chest x-ray was also reviewed Objective - Vital Signs Vital signs: Vital Signs Temp 98.1 F 10/08/17 20:00 Pulse 85 10/09/17 04:00 Resp 16 10/09/17 04:00 BP 97/56 10/08/17 20:00 Pulse Ox 97 10/08/17 20:00 Intake & Output 10/08/17 10/09/17 10/09/17 18:59 06:59 18:59 Output Total 0 Balance 0 Weight 94.3 kg 92.3 kg Output: Urine 0 Other: Voiding Method Urinal Urinal Urinal # Voids 2 1 0 ABP, PAP, CO, CI - Last Documented Arterial Blood Pressure 121/105 Pulmonary Artery Pressure 21/12 Cardiac Output 6.1 Cardiac Index 2.8 - Exam Physical Exam: Revealed a 52-year-old white male in no distress, on room air HEENT:[Neck is supple.] [No neck masses.] [No thyromegaly.] [No JVD.] Chest: [Diminished breath sounds at the left base, no crackles nor rhonchi no wheezes.] Cardiac Exam: [Normal S1 and S2, no S3 gallop, no murmur.] Abdomen: [Soft, nontender, no megaly, no rebound, no guarding, normal bowel sounds.] Extremities: [No clubbing, no edema, no cyanosis.] Neurological Exam: [No focal neurologic deficit. Lymphatics: No lymphadenopathy Psychiatric: Normal mood affect and mental status examination.] - Labs CBC & Chem 7: 10/09/17 04:28 10/09/17 04:28 Labs: Abnormal Lab Results - Last 24 Hours (Table) 10/08/17 10/08/17 10/08/17 Range/Units 11:54 17:07 20:11 RBC (4.30-5.90) m/uL Hgb (13.0-17.5) gm/dL Hct (39.0-53.0) % Glucose (74-99) mg/dL POC Glucose (mg/dL) 138 H 134 H 198 H (75-99) mg/dL AST (17-59) U/L Total Protein (6.3-8.2) g/dL Albumin (3.5-5.0) g/dL 10/09/17 10/09/17 10/09/17 Range/Units 04:28 04:28 07:27 RBC 3.48 L (4.30-5.90) m/uL Hgb 10.4 L (13.0-17.5) gm/dL Hct 32.4 L (39.0-53.0) % Glucose 131 H (74-99) mg/dL POC Glucose (mg/dL) 134 H (75-99) mg/dL AST 13 L (17-59) U/L Total Protein 5.0 L (6.3-8.2) g/dL Albumin 2.7 L (3.5-5.0) g/dL 10/09/17 Range/Units 11:34 RBC (4.30-5.90) m/uL Hgb (13.0-17.5) gm/dL Hct (39.0-53.0) % Glucose (74-99) mg/dL POC Glucose (mg/dL) 156 H (75-99) mg/dL AST (17-59) U/L Total Protein (6.3-8.2) g/dL Albumin (3.5-5.0) g/dL Assessment and Plan Assessment: impression: 1 acute non-ST elevation myocardial infarction 2 severe coronary artery disease as noted on the cardiac catheterization, status post three-vessel coronary artery bypass surgery, postoperative day #3 3 history of tobacco dependence syndrome but no significant COPD symptoms based on the clinical history. However FEV1 testing is pending. 4 remote history of pulmonary embolism provoked by longer driving hours. 5 family history of premature coronary artery disease. 6 minimal left lower lobe atelectasis, and small tiny left pleural effusion no need for intervention, will likely resolve on its own and with incentive spirometry. Recommendation: continue incentive spirometry, ambulation, [facility].. Time with Patient: Less than 30
[2017-10-09 16:54] LABS: Glucose,Whole Blood 136 mg/dL (75-99)
[2017-10-09 20:37] LABS: Glucose,Whole Blood 186 mg/dL (75-99)
[2017-10-09] MEDS: SENNOSIDES-DOCUSATE SODIUM 1 EACH TAB PO SCH (20:40)
[2017-10-09 23:53] VITALS: PULSE 80; TEMP 98.7
[2017-10-09 23:54] VITALS: BP 97/56
[2017-10-10 04:25] LABS: HCT 31.7 % (39.0-53.0); HGB 10.3 gm/dL (13.0-17.5); MCHC 32.4 g/dL (31.0-37.0); MCV 92.6 fL (80.0-100.0); Mean Platelet Volume 7.1; Platelet Count 300 k/uL (150-450); RBC 3.43 m/uL (4.30-5.90); RDW 12.4 % (11.5-15.5); WBC 6.5 k/uL (3.8-10.6)
[2017-10-10 04:43] LABS: ALT 38 U/L (21-72); AST 19 U/L (17-59); Albumin 2.8 g/dL (3.5-5.0); Alkaline Phosphatase 71 U/L (38-126); Anion Gap 7 mmol/L; Blood Urea Nitrogen 22 mg/dL (9-20); Carbon Dioxide 28 mmol/L (22-30); Chloride 107 mmol/L (98-107); Glucose 147 mg/dL (74-99); Magnesium 2.2 mg/dL (1.6-2.3); Potassium 4.2 mmol/L (3.5-5.1); Sodium 142 mmol/L (137-145); Total Bilirubin 0.3 mg/dL (0.2-1.3); Total Protein 5.1 g/dL (6.3-8.2)
[2017-10-10] MEDS: KETOROLAC 30 MG/ML 1 ML VIAL IVP SCH (06:12)
[2017-10-10 07:44] LABS: Glucose,Whole Blood 141 mg/dL (75-99)
[2017-10-10] MEDS: CLOPIDOGREL 75 MG TAB PO SCH (08:24)
[2017-10-10] MEDS: ASPIRIN 325 MG TAB PO SCH (08:24)
[2017-10-10] MEDS: ATORVASTATIN 40 MG TAB PO SCH (08:24)
[2017-10-10] MEDS: INSULIN ASPART 100 UNIT/ML 1 ML 10 ML VIAL SQ SCH ×2 (08:24→13:44)
[2017-10-10] MEDS: PANTOPRAZOLE 40 MG TABLET PO SCH (08:24)
[2017-10-10] MEDS: METOPROLOL TARTRATE 12.5 MG TAB PO SCH (08:24)
[2017-10-10] MEDS: MUPIROCIN 2% OINT 22 GM TUBE NASAL SCH (08:25)
[2017-10-10] MEDS: HEPARIN SODIUM,PORCINE 5,000 UNIT/ML 1 ML VIAL SQ SCH (08:25)
--- NOTE | 2017-10-10 08:40 | XR ---
EXAMINATION TYPE: XR chest 2V DATE OF EXAM: 10/10/2017 COMPARISON: 10/09/2017 TECHNIQUE: PA and lateral views submitted. HISTORY: Postop FINDINGS: Heart is enlarged and there is postoperative changes. Small bilateral pleural effusions and basilar c onsolidation. No overt failure or pneumothorax. Arthropathy of the shoulders. IMPRESSION: 1. Stable small bilateral pleural effusion.
--- NOTE | 2017-10-10 09:24 | P.PN ---
Subjective Progress Note Date: 10/10/17 Principal diagnosis: Triple-vessel coronary artery disease, non-STEMI. History of pulmonary embolism , tobacco dependence, family history of premature coronary artery disease with his father having open heart surgery in his 50s. Hyperlipidemia with LDL 113. Previous history of diabetes mellitus, resolved after weight loss, current hemoglobin A1c 6.7%. Preoperative nasal swab positive for MSSA. POD #5 urgent coronary artery bypass grafting 3 vessels, left internal mammary artery to the left anterior descending artery, reverse saphenous vein graft to the diagonal artery, reverse saphenous vein graft to the right coronary artery, endoscopic vein harvest of the left greater saphenous vein, epi-aortic ultrasound, and intraoperative transesophageal echocardiogram. Patient is currently sitting up in the recliner in no acute distress. Denies chest pain, shortness of breath. No new concerns. Patient has ambulated in the hallway multiple times. Objective - Vital Signs Vital signs: Vital Signs Temp 98.7 F 10/09/17 23:28 Pulse 80 10/09/17 23:28 Resp 16 10/10/17 03:56 BP 117/62 10/09/17 23:28 Pulse Ox 97 10/09/17 23:28 Intake & Output 10/09/17 10/10/17 10/10/17 18:59 06:59 18:59 Intake Total 240 Output Total 0 Balance 240 Weight 95.1 kg Intake: Oral 240 Output: Urine 0 Other: Voiding Method Urinal Urinal Toilet # Voids 1 2 1 ABP, PAP, CO, CI - Last Documented Arterial Blood Pressure 121/105 Pulmonary Artery Pressure 21/12 Cardiac Output 6.1 Cardiac Index 2.8 - Constitutional General appearance: Present: cooperative, no acute distress - Respiratory Details: Lungs sounds clear to auscultation bilaterally. Respirations even, nonlabored. Currently on room air with oxygen saturation 97%. Able to achieve 1500 mL on his incentive spirometry. - Cardiovascular Details: S1, S2 present. Regular rate and rhythm, sinus rhythm on telemetry. Sternum stable. Palpable peripheral pulses bilaterally. No edema present. No calf pain or tenderness noted. Heart hugger in place with patient demonstrating appropriate use. Antiembolism stockings, SCDs present. - Gastrointestinal Gastrointestinal Comment(s): Abdomen soft, nontender, nondistended. Active bowel sounds 4 quadrants. Tolerating diet. - Genitourinary Genitourinary Comment(s): Continues to void clear, yellow urine. - Integumentary Integumentary Comment(s): Sternal incision well approximated Dermabond. Left lower extremity EVH site well approximated with Dermabond. Skin warm, dry, pink with evidence of good perfusion. - Neurologic Neurologic: Present: CNII-XII intact - Musculoskeletal Musculoskeletal: Present: gait normal, strength equal bilaterally - Psychiatric Psychiatric: Present: A&O x's 3, appropriate affect, intact judgment & insight - Allied health notes Allied health notes reviewed: nursing - Labs CBC & Chem 7: 10/10/17 04:01 10/10/17 04:01 Labs: Abnormal Lab Results - Last 24 Hours (Table) 10/09/17 10/09/17 10/09/17 Range/Units 11:34 16:52 20:34 RBC (4.30-5.90) m/uL Hgb (13.0-17.5) gm/dL Hct (39.0-53.0) % BUN (9-20) mg/dL Glucose (74-99) mg/dL POC Glucose (mg/dL) 156 H 136 H 186 H (75-99) mg/dL Total Protein (6.3-8.2) g/dL Albumin (3.5-5.0) g/dL 10/10/17 10/10/17 10/10/17 Range/Units 04:01 04:01 07:35 RBC 3.43 L (4.30-5.90) m/uL Hgb 10.3 L (13.0-17.5) gm/dL Hct 31.7 L (39.0-53.0) % BUN 22 H (9-20) mg/dL Glucose 147 H (74-99) mg/dL POC Glucose (mg/dL) 141 H (75-99) mg/dL Total Protein 5.1 L (6.3-8.2) g/dL Albumin 2.8 L (3.5-5.0) g/dL - Imaging and Cardiology Chest x-ray: report reviewed, image reviewed Assessment and Plan (1) Tobacco dependence Current Visit: Yes Status: Chronic Code(s): F17.200 - NICOTINE DEPENDENCE, UNSPECIFIED, UNCOMPLICATED SNOMED Code(s): 54681058 (2) History of pulmonary embolism Current Visit: No Status: Resolved Code(s): Z86.711 - PERSONAL HISTORY OF PULMONARY EMBOLISM SNOMED Code(s): 933840075 (3) Family history of premature coronary artery disease Current Visit: Yes Status: Chronic Code(s): Z82.49 - FAMILY HX OF ISCHEM HEART DIS AND OTH DIS OF THE CIRC SYS SNOMED Code(s): 926806842 (4) NSTEMI (non-ST elevated myocardial infarction) Current Visit: Yes Status: Acute Code(s): I21.4 - NON-ST ELEVATION (NSTEMI) MYOCARDIAL INFARCTION SNOMED Code(s): 627682137 (5) Chest pain Current Visit: Yes Status: Acute Code(s): R07.9 - CHEST PAIN, UNSPECIFIED SNOMED Code(s): 76059754 (6) Hyperlipidemia Current Visit: Yes Status: Chronic Code(s): E78.5 - HYPERLIPIDEMIA, UNSPECIFIED SNOMED Code(s): 60248455 (7) History of diabetes mellitus, type II Current Visit: No Status: Resolved Code(s): Z86.39 - PERSONAL HISTORY OF ENDO, NUTRITIONAL AND METABOLIC DISEASE SNOMED Code(s): 730685409 Plan: 1. Continue aspirin, statin, beta keven. Will maximize beta keven as tolerated. 2. Encourage incentive spirometry use. 3. Encourage smoking cessation. 4. Increase activity, ambulate in hallway. PT/OT/cardiac rehab following. 5. Diabetic management per primary care service. 6. Patient will need rehab at discharge as he lives alone. If there is no inpatient rehab bed available, patient may go stay with his father for a short amount of time. 7. Will discharge this afternoon. Time with Patient: Greater than 30
--- NOTE | 2017-10-10 10:07 | PN ---
PROGRESS NOTE Mr. Ryder is a 52-year-old male status post coronary artery bypass grafting. He is feeling well this morning. His breathing has been stable. He is denying any symptoms of chest pain. He denies any dizziness. He is feeling much better and he continues to be in sinus mechanism. He continues to be at this time on aspirin once a day, Lipitor 40 mg daily, Plavix 75 mg daily, metoprolol tartrate 12.5 mg twice a day. PHYSICAL EXAMINATION: Blood pressure 117/60 with the heart rate in 80s. LUNGS: Clear. HEART: Regular rate and rhythm. S1, S2. No S3. No rub. ABDOMEN: Soft, nontender. EXTREMITIES: No edema. LAB DATA: Lab data revealed BUN and creatinine 22 and 0.9, potassium 4.2. Hemoglobin 10.3. IMPRESSION: 1. Status post coronary artery bypass grafting, stable. 2. Hyperlipidemia. RECOMMENDATION: From the cardiac standpoint, he is stable. We expect he should be able to be discharged home soon and he will follow up as an outpatient. JAMIE / ANDREWN: [id number] /
--- NOTE | 2017-10-10 11:10 | P.PN ---
Subjective Progress Note Date: 10/10/17 Principal diagnosis: Multivessel coronary artery disease, status post three-vessel CABG, postop day 4 On 10/10/2017 patient is seen in intensive care, doing extremely well, he is on room air, O2 sat is 97%, respirations are even and nonlabored, lung sounds are clear to auscultation. Hemodynamically stable, afebrile. Denies any acute distress, has been compliant with his incentive spirometry. Chest x-ray from this morning has been reviewed, it shows cardiomegaly, and a small left pleural effusion. Patient is not on any IV drips, his IV has been hep-locked. Lab work from today shows a normal white count, 6.5, hemoglobin is 10.3, no electrolyte abnormalities, B1 is 22, creatinine 0.90. Patient is in normal sinus rhythm on a monitor. Denies any chest pain, or shortness of breath. No acute events overnight, patient has been in the ambulating in the hallway, with no signs of rest or distress. Cardiothoracic surgery has cleared him for discharge home today. On 10/10/2017 patient is seen in intensive care, doing extremely well, he is on room air, O2 sat is 97%, respirations are even and nonlabored, lung sounds are clear to auscultation. Hemodynamically stable, afebrile. Denies any acute distress, has been compliant with his incentive spirometry. Chest x-ray from this morning has been reviewed, it shows cardiomegaly, and a small left pleural effusion. Patient is not on any IV drips, his IV has been hep-locked. Lab work from today shows a normal white count, 6.5, hemoglobin is 10.3, no electrolyte abnormalities, B1 is 22, creatinine 0.90. Patient is in normal sinus rhythm on a monitor. Denies any chest pain, or shortness of breath. No acute events overnight, patient has been in the ambulating in the hallway, with no signs of rest or distress. Cardiothoracic surgery has cleared him for discharge home today. Objective - Vital Signs Vital signs: Vital Signs Temp 98.7 F 10/09/17 23:28 Pulse 80 10/09/17 23:28 Resp 16 10/10/17 03:56 BP 117/62 10/09/17 23:28 Pulse Ox 97 10/09/17 23:28 Intake & Output 10/09/17 10/10/17 10/10/17 18:59 06:59 18:59 Intake Total 240 Output Total 0 Balance 240 Weight 95.1 kg Intake: Oral 240 Output: Urine 0 Other: Voiding Method Urinal Urinal Toilet # Voids 1 2 1 ABP, PAP, CO, CI - Last Documented Arterial Blood Pressure 121/105 Pulmonary Artery Pressure 21/12 Cardiac Output 6.1 Cardiac Index 2.8 - Exam Physical Exam: Revealed a 52-year-old white male in no distress, on room air HEENT:[Neck is supple.] [No neck masses.] [No thyromegaly.] [No JVD.] Chest: [Diminished breath sounds at the left base, no crackles nor rhonchi no wheezes.] Cardiac Exam: [Normal S1 and S2, no S3 gallop, no murmur.] Abdomen: [Soft, nontender, no megaly, no rebound, no guarding, normal bowel sounds.] Extremities: [No clubbing, no edema, no cyanosis.] Neurological Exam: [No focal neurologic deficit. Lymphatics: No lymphadenopathy Psychiatric: Normal mood affect and mental status examination.] - Labs CBC & Chem 7: 10/10/17 04:01 10/10/17 04:01 Labs: Abnormal Lab Results - Last 24 Hours (Table) 10/09/17 10/09/17 10/09/17 Range/Units 11:34 16:52 20:34 RBC (4.30-5.90) m/uL Hgb (13.0-17.5) gm/dL Hct (39.0-53.0) % BUN (9-20) mg/dL Glucose (74-99) mg/dL POC Glucose (mg/dL) 156 H 136 H 186 H (75-99) mg/dL Total Protein (6.3-8.2) g/dL Albumin (3.5-5.0) g/dL 10/10/17 10/10/17 10/10/17 Range/Units 04:01 04:01 07:35 RBC 3.43 L (4.30-5.90) m/uL Hgb 10.3 L (13.0-17.5) gm/dL Hct 31.7 L (39.0-53.0) % BUN 22 H (9-20) mg/dL Glucose 147 H (74-99) mg/dL POC Glucose (mg/dL) 141 H (75-99) mg/dL Total Protein 5.1 L (6.3-8.2) g/dL Albumin 2.8 L (3.5-5.0) g/dL Assessment and Plan Plan: Assessment: 1 acute non-ST elevation myocardial infarction 2 severe coronary artery disease as noted on the cardiac catheterization, status post three-vessel coronary artery bypass surgery, postoperative day #3 3 history of tobacco dependence syndrome but no significant COPD symptoms based on the clinical history. However FEV1 testing is pending. 4 remote history of pulmonary embolism provoked by longer driving hours. 5 family history of premature coronary artery disease. 6 minimal left lower lobe atelectasis, and small tiny left pleural effusion no need for intervention, will likely resolve on its own and with incentive spirometry. Plan: Patient is doing very well, vital signs are stable, afebrile, no acute events overnight. Tolerating ambulation very well. Denies any chest pain or shortness of breath. He is clear for discharge from pulmonary standpoint. Follow-up with Dr. Murray in the office in one week. I performed a history & physical examination of the patient and discussed their management with my nurse practitioner, Alba Frye. I reviewed the nurse practitioner's note and agree with the documented findings and plan of care. Lung sounds are clear. The findings and the impression was discussed with the patient. I attest to the documentation by the nurse practitioner. Time with Patient: Less than 30
[2017-10-10 12:51] LABS: Glucose,Whole Blood 143 mg/dL (75-99)
--- NOTE | 2017-10-10 13:08 | P.DS ---
Providers Date of admission: 10/01/17 23:24 Expected date of discharge: 10/10/17 Attending physician: Cuong Montiel Consults: 10/01/17 23:24 Consult Physician Urgent Consulting Provider: Koby Schaeffer Consult Reason/Comments: nstemi Do you want consulting provider notified?: Yes 10/02/17 11:37 Consult Physician Routine Consulting Provider: Cuong Montiel Consult Reason/Comments: cabg Do you want consulting provider notified?: Already Contacted 10/03/17 08:00 Consult to Anesthesia Routine Consulting Provider: Anesthesia,Services Consult Reason/Comments: Cardiac Surgery Pre-Op 10/03/17 09:41 Consult Physician Routine Consulting Provider: Cleopatra Adams Consult Reason/Comments: preop open heart Do you want consulting provider notified?: Yes 10/05/17 14:29 Consult Physician Routine Consulting Provider: Francisco Phipps Consult Reason/Comments: med management Do you want consulting provider notified?: Already Contacted 10/07/17 08:11 Consult Physician Routine Consulting Provider: Jelani Reed Consult Reason/Comments: inpatient rehab Do you want consulting provider notified?: Yes Primary care physician: Francisco Phipps - Discharge Diagnosis(es) (1) Tobacco dependence Current Visit: Yes Status: Chronic (2) History of pulmonary embolism Current Visit: No Status: Resolved (3) Family history of premature coronary artery disease Current Visit: Yes Status: Chronic (4) NSTEMI (non-ST elevated myocardial infarction) Current Visit: Yes Status: Acute (5) Chest pain Current Visit: Yes Status: Acute (6) Hyperlipidemia Current Visit: Yes Status: Chronic (7) History of diabetes mellitus, type II Current Visit: No Status: Resolved Hospital Course: FINAL DIAGNOSIS: 1. Triple-vessel coronary artery disease, non-STEMI 2. History of pulmonary embolism 3. Tobacco dependence 4. Family history of premature coronary artery disease with father having open heart surgery in his 50s 5. Hyperlipidemia 6. History of diabetes mellitus, resolved after weight loss, current hemoglobin A1c 6.7% 7. Preoperative nasal swab positive for MSSA PRINCIPAL PROCEDURE: 1. Urgent coronary artery bypass grafting 3 vessels with the left internal mammary artery to the left anterior descending artery, reverse saphenous vein graft to the diagonal artery, reverse saphenous vein graft to the right coronary artery 2. Endoscopic vein harvesting of the left greater saphenous vein 3. Epi-aortic ultrasound 4. Intraoperative transesophageal echocardiogram HISTORY OF PRESENT ILLNESS: This 52-year-old gentleman who follows with Dr. Phipps on an outpatient basis presented to the emergency room with complaints of constant substernal chest pain which he stated radiated down his left arm and felt like someone was sitting on his chest associated with shortness of breath, nausea, diaphoresis but no dizziness, and was worse when going from lying to sitting position which was relieved with nitro. He was diagnosed with a non-STEMI and was taken to the Pediatric Registered Nurse by Dr. Soto which demonstrated the proximal LAD with a long segment of stenosis up to 99%, diagonal branch with 70- 80% stenosis, eccentric 70% stenosis in the midsegment of the circumflex artery , proximal RCA stenosis of 50-60% with distal RCA stenosis of 99%, with collateral from the left coronary system to the distal right PDA. LV gram demonstrated an ejection fraction of 50% with inferior apical hypokinesis and no evidence of mitral regurgitation and no gradient across the aortic valve. Echocardiogram demonstrated normal systolic function with an ejection fraction of 60-65%, trace mitral regurgitation and no other valvular abnormalities. Dr. Montiel from cardiothoracic surgery was consulted for the possibility of surgical revascularization. An extensive discussion was had with the patient and his family, risks and benefits were explained, and consent was obtained to proceed with surgery. The patient was kept inpatient due to the nature of his disease process HOSPITAL COURSE: On October 05, 2017, the patient was taken to the preoperative area, prepared in the usual fashion, and subsequently taken to the operating room where Dr. Montiel performed urgent coronary artery bypass grafting 3 vessels with the left internal mammary artery to the left anterior descending artery, reverse saphenous vein graft to diagonal artery, reverse saphenous vein graft to right coronary artery, endoscopic vein harvesting of the left greater saphenous vein, epi-aortic ultrasound, and intraoperative transesophageal echocardiogram. Upon completion of surgery the patient was transferred to the cardiovascular intensive care unit where he was recovered, monitored hemodynamically, and where he progressed to cardiac rehabilitation phase 1. He was extubated, all lines, tubes, and drips were discontinued when appropriate, and he was ordered to be transferred to [address] [place] [address] for further monitoring and rehabilitation, however there was a lack of available beds and the patient remained in the intensive care unit. His oxygen was titrated down, he continued to work with physical therapy, and was ready to be discharged home on postoperative day #5 with home care to follow. He received written and verbal instruction regarding his medications, activity restrictions, signs and symptoms requiring physician notification, and follow-up appointments. COMPLICATIONS: The patient's parents no postoperative complications. Patient Condition at Discharge: Stable Plan - Discharge Summary Discharge Rx Participant: Yes New Discharge Prescriptions: New Aspirin 325 mg PO DAILY #30 tab Atorvastatin [Lipitor] 40 mg PO DAILY #30 tab Clopidogrel [Plavix] 75 mg PO DAILY #30 tab HYDROcodone/APAP 5-325MG [Jefferson 5-325] 1 - 2 each PO Q6HR PRN #120 tab PRN Reason: Moderate Pain Metoprolol Tartrate [Lopressor] 12.5 mg PO BID #60 tab Pantoprazole [Protonix] 40 mg PO AC-BRKFST #30 tablet.dr [place]-Docusate Sodium [Senokot-S] 2 each PO HS tab Discharge Medication List Aspirin 325 mg PO DAILY #30 tab 10/10/17 [Rx] Atorvastatin [Lipitor] 40 mg PO DAILY #30 tab 10/10/17 [Rx] Clopidogrel [Plavix] 75 mg PO DAILY #30 tab 10/10/17 [Rx] HYDROcodone/APAP 5-325MG [Jefferson 5-325] 1 - 2 each PO Q6HR PRN #120 tab 10/10/17 [Rx] Metoprolol Tartrate [Lopressor] 12.5 mg PO BID #60 tab 10/10/17 [Rx] Pantoprazole [Protonix] 40 mg PO AC-BRKFST #30 tablet. 10/10/17 [Rx] Sennosides-Docusate Sodium [Senokot-S] 2 each PO HS tab 10/10/17 [Rx] Follow up Appointment(s)/Referral(s): Cleopatra Adams MD [STAFF PHYSICIAN] - 11/01/17 2:30 pm Francisco Phipps MD [Primary Care Provider] - 10/24/17 1:50 pm Nidia Hoyos NPC [Nurse Practitioner] - 10/14/17 12:00 pm London Soto MD [STAFF PHYSICIAN] - 10/24/17 10:30 am Cuong Montiel MD [STAFF PHYSICIAN] - 11/04/17 10:00 am Ambulatory/Diagnostic Orders: Complete Blood Count w/diff [LAB.AMB] Time Frame: 3 Days, Location: Determined By Patient Comprehensive Metabolic Panel [LAB.AMB] Time Frame: 3 Days, Location: Determined By Patient Activity/Diet/Wound Care/Special Instructions: DISCHARGE INSTRUCTIONS: 1. No driving for 4 weeks, or until physician gives their ok. 2. The patient should sleep in their own bed, no medical bed needed. 3. Stairs are not an issue. If the bedroom is upstairs, it is advised that the patient go up at night and down in the morning for the first week. Go slowly, using handrail and take 1 step at a time. 4. ASHWINI hose are to be worn for 30 days or until physician discontinues. 5. Heart hugger is to be worn 100% of the time until physician discontinues.( except when showering) 6. No lifting, pushing, or pulling more than 10 pounds for 12 weeks. The physician will advise of any restriction changes. 7. The patient is expected to continue the prescribed walking program. 8. Continue pain control per as needed orders. 9. Continue with incentive spirometry and splinting/heart hugger until otherwise directed by the physician. 10. Must shower daily using liquid antibacterial soap and a separate white washcloth for each individual incision. 11. Routine sternal incision care. No powders, lotions, ointments on incisions. 12. Please call surgeon/EXHIBITS COORDINATOR for temp greater than 101 F or purulent drainage from incisions. 13. All prescriptions given by surgeon for 30 days. Refills need to be filled through glass bulb silverer/primary care physician. 14. Patient referred to outpatient cardiac rehabilitation approximately 6 weeks post surgery after clearance from cardiology. HOME HEALTH SERVICES TO PROVIDE: RN SKILLED HOME CARE SERVICES FOR POST-OP SURGICAL PATIENTS WITH THE FOLLOWING: Coronary Artery Bypass Surgery (CABG), Mitral Valve Replacement/ Repair ( MVR), Aortic Valve Replacement/Repair (AVR) RN TO CONTINUE EDUCATION FROM ``ROAD TO A HEALTH HEART PATIENT EDUCATION MANUAL (GIVEN TO PATIENT IN THE HOSPITAL) MEDICATION RECONCILIATION WITH EDUCATION NEEDED ON FIRST HOME VISIT EMPHASIZE IMPORTANCE OF WEARING BREAST SUPPORT/HEART HUGGER ENCOURAGE USE OF INCENTIVE SPIROMETER 10 X EVERY HOUR WHILE AWAKE ENCOURAGE UTILIZATION OF LOWER EXTREMITY COMPRESSION STOCKINGS/ASHWINI HOSE and ELEVATE LEGS ABOVE LEVEL OF HEART WHILE AT REST. ENCOURAGE AMBULATION 3-5x/day INCREASING TOLERATES, WHILE AVOID EXTREMES IN TEMPERATURE FREQUENCY: RN TO OPEN THE PATIENT WITHIN 24 HOURS OF DISCHARGE FROM THE HOSPITAL WITH TELEHEALTH [place]STALLED [place] [facility] [place] VISIT 2-3 X A WEEK FOR 4 WEEKS ESTABLISHED BY PATIENT NEEDS. REMOVAL OF SUTURES: NURSING SERVICES TO REMOVE SUTURES TWO WEEKS POST SURGICAL DATE 10/19/2017. If any questions regarding suture removal please call the office at [phone]. LABORATORY: CBC, CMP TO BE DRAWN ON THE THIRD DAY HOME, 10/13/2017 (RAN STAT ) FAX RESULTS TO [phone]. TELEHEALTH PARAMETERS: WEIGHT: NOTIFY MD OF WEIGHT GAIN OF 2 LBS IN 24 HOURS OR 5 LBS IN ONE WEEK HR: NOTIFY MD OF HR <55 BPM OR HR>100 BPM BP: NOTIFY MD IF BP <90/55 OR BP>140/100 O2 SAT: NOTIFY MD IF PO2<93% ON ROOM AIR SEND TELEHEALTH REPORT TO ESCAPEMENT MATCHER AND CARDIOVASCULAR SURGEON THE FIRST WEEK OF CARE AND THEN BI-WEEKLY. PLEASE ADDITIONALLY COMMUNICATE ANY ABNORMALS AND NEW FINDINGS TO THE SURGEONS OFFICE. A Red armband has been placed on the patient. It should be worn for 30 days post surgery and will be removed by the cardiac surgeons. If an ER visit is necessary, please make sure the number on the Red armband is called. Discharge Disposition: HOME WITH HOME HEALTH SERVICES
--- NOTE | 2017-10-10 17:44 | PN ---
PROGRESS NOTE CHIEF COMPLAINT: Acute ME status post CABG. HISTORY OF PRESENT ILLNESS: This gentleman is doing well and expected to go home today. PHYSICAL EXAM: Chest is clear. Cardiac exam is unremarkable. The abdomen is soft, nontender. IMPRESSION: 1. Status post coronary artery bypass grafting. 2. Coronary artery disease. 3. Acute myocardial infarction. PLAN: He looks as though he is going to be going home today. MMODL / IJN: [id number] /
== END 2017-10-10 17:03 | disposition home health service (06) | DRG 234 ==
LOC: EC 22:06 → 6SEL 23:24 → 6ICU 10-05 10:38
PROVIDERS: ADMIT Surgery; ATTEND Surgery
PROC: 4A023N7 Measurement of Cardiac Sampling and Pressure, Left Heart, Percutaneous Approach (ICD-10-PCS; 2017-10-02)
PROC: B2111ZZ Fluoroscopy of Multiple Coronary Arteries using Low Osmolar Contrast (ICD-10-PCS; 2017-10-02)
PROC: B2151ZZ Fluoroscopy of Left Heart using Low Osmolar Contrast (ICD-10-PCS; 2017-10-02)
PROC: 06BQ4ZZ Excision of Left Saphenous Vein, Percutaneous Endoscopic Approach (ICD-10-PCS; 2017-10-05)
PROC: 5A1221Z Performance of Cardiac Output, Continuous (ICD-10-PCS; 2017-10-05)
PROC: 5A1223Z Performance of Cardiac Pacing, Continuous (ICD-10-PCS; 2017-10-05)
PROC: B24BZZZ Ultrasonography of Heart with Aorta (ICD-10-PCS; 2017-10-05)
PROC: 021109W Bypass Coronary Artery, Two Arteries from Aorta with Autologous Venous Tissue, Open Approach (ICD-10-PCS; principal; 2017-10-05 08:00)
PROC: 02100Z9 Bypass Coronary Artery, One Artery from Left Internal Mammary, Open Approach (ICD-10-PCS; 2017-10-05 08:00)
DX: I21.4 Non-ST elevation (NSTEMI) myocardial infarction (principal); J44.9 Chronic obstructive pulmonary disease, unspecified; E78.5 Hyperlipidemia, unspecified; J98.11 Atelectasis; I25.2 Old myocardial infarction; M19.90 Unspecified osteoarthritis, unspecified site; I34.0 Nonrheumatic mitral (valve) insufficiency; I25.10 Atherosclerotic heart disease of native coronary artery without angina pectoris; F17.200 Nicotine dependence, unspecified, uncomplicated; Z86.711 Personal history of pulmonary embolism; Z86.39 Personal history of other endocrine, nutritional and metabolic disease; Z71.6 Tobacco abuse counseling; Z82.49 Family history of ischemic heart disease and other diseases of the circulatory system
CPT/HCPCS: 36415; 71045; 71046; 71275; 80048; 80053; 80061; 80074; 81003; 82272; 82330; 82550; 82553; 82805; 83036; 83690; 83735; 83880; 84443; 84484; 85025; 85027; 85049; 85520; 85610; 85730; 86850; 86891; 86900; 86901; 86920; 87070; 87086; 93005; 93306; 93458; 93880; 93922; 93970; 94002; 94150; 94640; 96361; 96365; 96366; 96376; 99291

== ENCOUNTER 2018-02-02 08:46 | Emergency (ER) | payer OTHER ==
[2018-02-02] MEDS ORDERED: SODIUM CHLORIDE 0.9% 1,000 ML IV STA (09:27)
[2018-02-02] MEDS ORDERED: ACETAMINOPHEN TAB 500 MG TAB PO STA (09:27)
--- NOTE | 2018-02-02 09:35 | ED ---
General Adult HPI - General Chief complaint: Nausea/Vomiting/Diarrhea Stated complaint: Weakness, Diarrhea Time Seen by Provider: 02/02/18 09:21 Source: patient, RN notes reviewed, old records reviewed Mode of arrival: ambulatory Limitations: no limitations - History of Present Illness Initial comments: 52-year-old male presenting for evaluation of diarrhea. Patient states that yesterday afternoon he developed diarrhea, fever and chills, and body aches. Patient has had no nausea vomiting. No significant abdominal pain. Diarrhea was nonbloody. No recent travel. Patient does not believe he ate any suspicious food. He does have history of CAD status post bypass. He has no chest pain or shortness of breath. He does complain of a mild sore throat and mild cough. - Related Data Previous Rx's Medication Instructions Recorded Aspirin 325 mg PO DAILY #30 tab 10/10/17 Atorvastatin [Lipitor] 40 mg PO DAILY #30 tab 10/10/17 Allergies Allergy/AdvReac Type Severity Reaction Status Date / Time No Known Allergies Allergy Verified 02/02/18 09:12 Review of Systems ROS Statement: Those systems with pertinent positive or pertinent negative responses have been documented in the HPI. ROS Other: All systems not noted in ROS Statement are negative. Past Medical History Past Medical History: Diabetes Mellitus, Myocardial Infarction ([place]), Osteoarthritis (OA), Pulmonary Embolus (PE) Additional Past Medical History / Comment(s): pt states diabetes has resolved after 62 lb weight loss Last Myocardial Infarction Date:: 2 years ago History of Any Multi-Drug Resistant Organisms: None Reported Past Surgical History: Coronary Bypass/CABG, Orthopedic Surgery Additional Past Surgical History / Comment(s): Right leg steel sinai, stent placed in gallbladder, as of 10-02 stent is out Past Anesthesia/Blood Transfusion Reactions: Previous Problems w/ Anesthesia Additional Past Anesthesia/Blood Transfusion Reaction / Comment(s): Stopped breathing during choly Past Psychological History: No Psychological Hx Reported Smoking Status: Current every day smoker Past Alcohol Use History: None Reported Past Drug Use History: None Reported - Past Family History Father Family Medical History: Coronary Artery Disease (CAD) Additional Family Medical History / Comment(s): Father had double coronary bypass surgery in his 50s. Mother Family Medical History: No Reported History General Exam Limitations: no limitations General appearance: alert, in no apparent distress Head exam: Present: atraumatic, normocephalic Eye exam: Present: normal appearance, PERRL ENT exam: Present: normal exam Neck exam: Present: normal inspection. Absent: tenderness, meningismus Respiratory exam: Present: normal lung sounds bilaterally. Absent: respiratory distress Cardiovascular Exam: Present: normal rhythm, tachycardia GI/Abdominal exam: Present: soft. Absent: distended, tenderness, guarding, rebound Extremities exam: Present: normal inspection, normal capillary refill. Absent: pedal edema Neurological exam: Present: alert, oriented X3, CN II-XII intact. Absent: motor sensory deficit Psychiatric exam: Present: normal affect, normal mood Skin exam: Present: warm, dry, intact. Absent: cyanosis, diaphoretic Course Vital Signs 02/02/18 08:57 Temperature 97.8 F Pulse Rate 118 H Respiratory 20 Rate Blood Pressure 126/52 O2 Sat by Pulse 98 Oximetry Medical Decision Making - Medical Decision Making 52-year-old male with diarrhea and fever chills. Patient is given IV hydration Tylenol. On reevaluation he is feeling better. No episodes of diarrhea while in the emergency department. Laboratory studies are within normal limits including normal CBC, electrolytes show mild anion gap acidosis at 18. Patient feels significantly better after hydration. He is willing to try oral rehydration at home. He will follow-up with his primary care physician return with worsening or changing symptoms. - Lab Data Result diagrams: 02/02/18 09:50 02/02/18 09:50 Lab Results 02/02/18 02/02/18 02/02/18 Range/Units 09:50 09:50 09:50 WBC 6.7 (3.8-10.6) k/uL RBC 6.04 H (4.30-5.90) m/uL Hgb 17.1 (13.0-17.5) gm/dL Hct 51.7 (39.0-53.0) % MCV 85.5 (80.0-100.0) fL MCH 28.3 (25.0-35.0) pg MCHC 33.1 (31.0-37.0) g/dL RDW 13.7 (11.5-15.5) % Plt Count 228 (150-450) k/uL Neutrophils % 83 % Lymphocytes % 8 % Monocytes % 5 % Eosinophils % 2 % Basophils % 0 % Neutrophils # 5.5 (1.3-7.7) k/uL Lymphocytes # 0.6 L (1.0-4.8) k/uL Monocytes # 0.4 (0-1.0) k/uL Eosinophils # 0.1 (0-0.7) k/uL Basophils # 0.0 (0-0.2) k/uL Sodium 144 (137-145) mmol/L Potassium 4.0 (3.5-5.1) mmol/L Chloride 106 (98-107) mmol/L Carbon Dioxide 20 L (22-30) mmol/L Anion Gap 18 mmol/L BUN 24 H (9-20) mg/dL Creatinine 1.01 (0.66-1.25) mg/dL Est GFR (CKD-EPI)AfAm >90 (>60 ml/min/1.73 sqM) Est GFR (CKD-EPI)NonAf 85 (>60 ml/min/1.73 sqM) Glucose 154 H (74-99) mg/dL Calcium 9.3 (8.4-10.2) mg/dL Total Bilirubin 0.8 (0.2-1.3) mg/dL AST 12 L (17-59) U/L ALT 18 L (21-72) U/L Alkaline Phosphatase 107 (38-126) U/L Total Protein 7.3 (6.3-8.2) g/dL Albumin 4.5 (3.5-5.0) g/dL Lipase 34 (23-300) U/L Influenza Type A RNA Not Detected (Not Detectd) Influenza Type B (PCR) Not Detected (Not Detectd) Disposition Clinical Impression: Dehydration, Diarrhea Disposition: HOME SELF-CARE Condition: Good Instructions: Acute Diarrhea (ED) Is patient prescribed a controlled substance at d/c from ED?: No Referrals: Francisco Phipps MD [Primary Care Provider] - 1-2 days Time of Disposition: 12:04
[2018-02-02 10:25] LABS: Basophils % (A) 0 %; Eosinophils # (A) 0.1 k/uL (0-0.7); Eosinophils % (A) 2 %; HCT 51.7 % (39.0-53.0); HGB 17.1 gm/dL (13.0-17.5); Lymphocytes # (A) 0.6 k/uL (1.0-4.8); Lymphocytes % (A) 8 %; MCH 28.3 pg (25.0-35.0); MCHC 33.1 g/dL (31.0-37.0); MCV 85.5 fL (80.0-100.0); Mean Platelet Volume 7.8; Monocytes # (A) 0.4 k/uL (0-1.0); Monocytes % (A) 5 %; Neutrophils # (A) 5.5 k/uL (1.3-7.7); Neutrophils % (A) 83 %; Platelet Count 228 k/uL (150-450); RBC 6.04 m/uL (4.30-5.90); RDW 13.7 % (11.5-15.5); WBC 6.7 k/uL (3.8-10.6)
[2018-02-02 10:39] LABS: ALT 18 U/L (21-72); AST 12 U/L (17-59); Albumin 4.5 g/dL (3.5-5.0); Alkaline Phosphatase 107 U/L (38-126); Anion Gap 18 mmol/L; Blood Urea Nitrogen 24 mg/dL (9-20); Calcium 9.3 mg/dL (8.4-10.2); Carbon Dioxide 20 mmol/L (22-30); Chloride 106 mmol/L (98-107); Glucose 154 mg/dL (74-99); Lipase 34 U/L (23-300); Sodium 144 mmol/L (137-145); Total Bilirubin 0.8 mg/dL (0.2-1.3); Total Protein 7.3 g/dL (6.3-8.2)
[2018-02-02 12:24] VITALS: BP 127/89; PULSE 88; RESP 18; TEMP 98.7
== END 2018-02-02 12:22 | disposition home or self-care (01) ==
LOC: EC 08:46
DX: E86.0 Dehydration (principal); R19.7 Diarrhea, unspecified; E87.2 Acidosis; R00.0 Tachycardia, unspecified; J02.9 Acute pharyngitis, unspecified; R05 Cough; R50.9 Fever, unspecified; I25.10 Atherosclerotic heart disease of native coronary artery without angina pectoris; F17.200 Nicotine dependence, unspecified, uncomplicated; Z95.1 Presence of aortocoronary bypass graft; Z82.49 Family history of ischemic heart disease and other diseases of the circulatory system
CPT/HCPCS: 36415; 80053; 83690; 85025; 87502; 96360; 99285

== ENCOUNTER 2018-07-17 13:50 | Emergency (ER) | payer OTHER ==
[2018-07-17 13:57] VITALS: BP 137/98; PULSE 101; RESP 18; TEMP 98.2
--- NOTE | 2018-07-17 14:46 | ED ---
General Adult HPI - General Chief complaint: Skin/Abscess/Foreign Body Stated complaint: Chest pain, lump in chest Time Seen by Provider: 07/17/18 14:22 Source: patient, RN notes reviewed Mode of arrival: wheelchair Limitations: no limitations - History of Present Illness Initial comments: Patient 53-year-old male presented to the emergency room today with chief complaint of a bump located to the top of the abdomen. Patient has not that he had open-heart surgery performed back in September 2017. He states that a few weeks ago he was lifting a heavy table. He states that he has not noticed a bump. He states when he coughs in her symptoms worse. He states it is nontender and nonpainful. Since that is concerned because it seemed to be getting larger. Patient denies any recent fever, chills, shortness of breath, chest pain, back pain, abdominal pain, nausea or vomiting, numbness or tingling , dysuria or hematuria, constipation or diarrhea, headaches or visual changes, or any other complaints. - Related Data Home Medications Medication Instructions Recorded Confirmed No Known Home Medications 07/17/18 07/17/18 Allergies Allergy/AdvReac Type Severity Reaction Status Date / Time No Known Allergies Allergy Verified 07/17/18 14:10 Review of Systems ROS Statement: Those systems with pertinent positive or pertinent negative responses have been documented in the HPI. ROS Other: All systems not noted in ROS Statement are negative. Past Medical History Past Medical History: Diabetes Mellitus, Myocardial Infarction ([place]), Osteoarthritis (OA), Pulmonary Embolus (PE) Additional Past Medical History / Comment(s): pt states diabetes has resolved after 62 lb weight loss Last Myocardial Infarction Date:: 2 years ago History of Any Multi-Drug Resistant Organisms: None Reported Past Surgical History: Coronary Bypass/CABG, Orthopedic Surgery Additional Past Surgical History / Comment(s): Right leg steel sinai, stent placed in gallbladder, as of 10-02 stent is out Past Anesthesia/Blood Transfusion Reactions: Previous Problems w/ Anesthesia Additional Past Anesthesia/Blood Transfusion Reaction / Comment(s): Stopped breathing during choly Past Psychological History: No Psychological Hx Reported Smoking Status: Current every day smoker Past Alcohol Use History: None Reported Past Drug Use History: None Reported - Past Family History Father Family Medical History: Coronary Artery Disease (CAD) Additional Family Medical History / Comment(s): Father had double coronary bypass surgery in his 50s. Mother Family Medical History: No Reported History General Exam - General Exam Comments Initial Comments: General: The patient is awake and alert, in no distress, and does not appear acutely ill. Neck: The neck is supple, there is no tenderness or JVD. Cardiovascular: There is a regular rate and rhythm. No murmur, rub or gallop is appreciated. Respiratory: Lungs are clear to auscultation, respirations are non-labored, breath sounds are equal. No wheezes, stridor, rales, or rhonchi. Gastrointestinal: Abdomen is soft on palpation. Patient does have a hernia in the epigastric area that is reproduced when he goes to sit up. It is completely reducible when he lays flat. There is nontender. Abdomen soft on palpation no tenderness. Musculoskeletal: Normal ROM, no tenderness. Sensation intact. Strength 5/5. Pulses equal bilaterally 2+. Neurological: A&O x 3. CN II-XII intact, There are no obvious motor or sensory deficits. Coordination appears grossly intact. Speech is normal. Skin: Skin is warm and dry and no rashes or lesions are noted. Psychiatric: Cooperative, appropriate mood & affect, normal judgment. Limitations: no limitations Course Vital Signs 07/17/18 13:55 Temperature 98.2 F Pulse Rate 101 H Respiratory 18 Rate Blood Pressure 137/98 O2 Sat by Pulse 97 Oximetry Medical Decision Making - Medical Decision Making Patient is advised follow-up with his cardiothoracic surgeon. He is advised that should return to the emergency room if area becomes painful. Disposition Clinical Impression: Incisional hernia Disposition: HOME SELF-CARE Condition: Good Instructions: Umbilical Hernia (ED) Additional Instructions: Please follow-up the surgeon over the next 2 days as discussed. Please return here to the emergency room symptoms increase or worsen or for any other concerns. Is patient prescribed a controlled substance at d/c from ED?: No Referrals: Francisco Phipps MD [Primary Care Provider] - 1-2 days Time of Disposition: 14:46
== END 2018-07-17 14:50 | disposition home or self-care (01) ==
LOC: EC 13:50
DX: K43.2 Incisional hernia without obstruction or gangrene (principal); F17.200 Nicotine dependence, unspecified, uncomplicated; Z86.711 Personal history of pulmonary embolism; Z95.1 Presence of aortocoronary bypass graft; Z98.890 Other specified postprocedural states
CPT/HCPCS: 99283

== ENCOUNTER 2020-02-25 10:20 | Emergency (ER) | payer OTHER ==
[2020-02-25 10:50] VITALS: RESP 18
--- NOTE | 2020-02-25 11:10 | ED ---
Skin/Abscess/FB HPI - General Chief complaint: Skin/Abscess/Foreign Body Stated complaint: cyst on back Time Seen by Provider: 02/25/20 11:05 Source: patient Mode of arrival: ambulatory Limitations: no limitations - History of Present Illness Initial comments: Patient is a 54-year-old male presenting to the emergency department with a chief complaint of a cyst on the back. Patient reports the cyst is occurring for the past 2 days and growing in size. Patient states it is also tender to palpation in the region. Denies any active discharge at this time. Denies taking any medication to alleviate the symptoms. Denies any history of MRSA. Denies any night sweats fevers or chills. Denies any nausea vomiting diarrhea. Denies taking medication to alleviate the symptoms. - Related Data Previous Rx's Medication Instructions Recorded Clindamycin HCl 300 mg PO Q6HR #40 cap 02/25/20 Allergies Allergy/AdvReac Type Severity Reaction Status Date / Time No Known Allergies Allergy Verified 02/25/20 10:50 Review of Systems ROS Statement: Those systems with pertinent positive or pertinent negative responses have been documented in the HPI. ROS Other: All systems not noted in ROS Statement are negative. Past Medical History Past Medical History: Diabetes Mellitus, Myocardial Infarction ([place]), Osteoarthritis (OA), Pulmonary Embolus (PE) Additional Past Medical History / Comment(s): pt states diabetes has resolved after 62 lb weight loss Last Myocardial Infarction Date:: 2 years ago History of Any Multi-Drug Resistant Organisms: None Reported Past Surgical History: Coronary Bypass/CABG, Orthopedic Surgery Additional Past Surgical History / Comment(s): Right leg steel sinai, stent placed in gallbladder, as of 10-02 stent is out Past Anesthesia/Blood Transfusion Reactions: Previous Problems w/ Anesthesia Additional Past Anesthesia/Blood Transfusion Reaction / Comment(s): Stopped breathing during choly Past Psychological History: No Psychological Hx Reported Smoking Status: Current every day smoker Past Alcohol Use History: None Reported Past Drug Use History: None Reported - Past Family History Father Family Medical History: Coronary Artery Disease (CAD) Additional Family Medical History / Comment(s): Father had double coronary bypass surgery in his 50s. Mother Family Medical History: No Reported History General Exam Limitations: no limitations General appearance: alert, in no apparent distress Head exam: Present: atraumatic, normocephalic, normal inspection Eye exam: Present: normal appearance, PERRL, EOMI Pupils: Present: normal accommodation ENT exam: Present: normal exam, mucous membranes moist Neck exam: Present: normal inspection, full ROM Respiratory exam: Present: normal lung sounds bilaterally. Absent: respiratory distress, wheezes Cardiovascular Exam: Present: regular rate, normal rhythm, normal heart sounds Extremities exam: Present: normal inspection, full ROM Back exam: Present: full ROM, tenderness (Tenderness at the site of the lesion.). Absent: normal inspection (Lesion was cellulitic overlying changes noted on the left lower region measuring approximately 4 cm in diameter. No signs of fluctuance or active discharge at this time.) Neurological exam: Present: alert, oriented X3 Psychiatric exam: Present: normal affect, normal mood Skin exam: Present: warm, dry, intact, normal color Course Vital Signs 02/25/20 02/25/20 10:47 12:29 Temperature 98.7 F 98.2 F Pulse Rate 111 H 105 H Respiratory 18 18 Rate Blood Pressure 112/64 106/71 O2 Sat by Pulse 99 98 Oximetry Medical Decision Making - Medical Decision Making Patient is a 54-year-old male presenting to emergency Department with the chief complaint of a cyst in the back. Exam this appears to be cellulitis or possible abscess but there is no regions of fluctuance. No indication for incision and drainage at this time. Patient denies any fevers night sweats or chills. Garcia zavala will be started on Rocephin in the ED and discharged with a 10 day course of clindamycin. Strict return parameters were thoroughly discussed with patient was understanding and agreeable. Case discussed with physician. Disposition Clinical Impression: Skin lesion of back, Cellulitis of skin Disposition: HOME SELF-CARE Condition: Stable Instructions (If sedation given, give patient instructions): Abscess (ED) Additional Instructions: Take prescribed medication as directed. Apply warm compresses to the region. Return to emergency department if symptoms worsen. Prescriptions: Clindamycin HCl 300 mg PO Q6HR #40 cap Is patient prescribed a controlled substance at d/c from ED?: No Referrals: Francisco Phipps MD [Primary Care Provider] - 1-2 days Time of Disposition: 12:03
[2020-02-25] MEDS ORDERED: cefTRIAXone 1,000 MG VIAL (IM USE) IM STA (11:19)
[2020-02-25] MEDS ORDERED: LIDOCAINE 1% INJ 10MG/ML (20 ML MDV) IM ONE (11:25)
[2020-02-25 12:33] VITALS: BP 106/71; PULSE 105; TEMP 98.2
== END 2020-02-25 12:33 | disposition home or self-care (01) ==
LOC: EC 10:20
DX: L03.312 Cellulitis of back [any part except buttock and flank] (principal); F17.200 Nicotine dependence, unspecified, uncomplicated; I25.2 Old myocardial infarction; Z95.1 Presence of aortocoronary bypass graft
CPT/HCPCS: 99282 ×2; 96372 ×2; J2001; J0696

== ENCOUNTER 2020-08-28 21:17 | Emergency (ER) | payer OTHER ==
[2020-08-28] MEDS ORDERED: CYCLOBENZAPRINE 10 MG TAB PO STA (21:50)
[2020-08-28] MEDS ORDERED: LIDOCAINE 5% PATCH TOPICAL STA (21:50)
[2020-08-28] MEDS ORDERED: KETOROLAC 15 MG/ML 1 ML VIAL IM STA (21:50)
--- NOTE | 2020-08-28 21:54 | ED ---
Fall HPI - General Chief Complaint: Fall Stated Complaint: Fall/Rib Pain Time Seen by Provider: 08/28/20 21:29 Source: patient Mode of arrival: ambulatory - History of Present Illness Initial Comments: 55-year-old male patient presents to the emergency department today for evaluation of left rib pain. Patient states that he fell down approximately 3 stairs and hit his left ribs on the railing. Patient states this occurred approximately 3 hours ago. Denies hitting his head or losing consciousness with the fall. Denies any neck or back pain. States it hurts take a deep breath but denies any shortness of breath. Denies cough or hemoptysis. Denies taking any blood thinning medications. Patient denies any headache, chest pain, shortness of breath, dizziness, weakness, abdominal pain, nausea, vomiting, or difficulties with bowel movements or urination. - Related Data Previous Rx's Medication Instructions Recorded Ibuprofen [Motrin] 600 mg PO Q8HR PRN #30 tab 08/28/20 Lidocaine 5% Patch [Lidoderm] 1 patch TOPICAL DAILY #30 patch 08/28/20 Allergies Allergy/AdvReac Type Severity Reaction Status Date / Time No Known Allergies Allergy Verified 08/28/20 22:30 Review of Systems ROS Statement: Those systems with pertinent positive or pertinent negative responses have been documented in the HPI. ROS Other: All systems not noted in ROS Statement are negative. Past Medical History Past Medical History: Diabetes Mellitus, Myocardial Infarction ([place]), Osteoarthritis (OA), Pulmonary Embolus (PE) Additional Past Medical History / Comment(s): pt states diabetes has resolved after 62 lb weight loss Last Myocardial Infarction Date:: 2 years ago History of Any Multi-Drug Resistant Organisms: None Reported Past Surgical History: Coronary Bypass/CABG, Orthopedic Surgery Additional Past Surgical History / Comment(s): Right leg steel sinai, stent placed in gallbladder, as of 10-02 stent is out Past Anesthesia/Blood Transfusion Reactions: Previous Problems w/ Anesthesia Additional Past Anesthesia/Blood Transfusion Reaction / Comment(s): Stopped breathing during choly Past Psychological History: No Psychological Hx Reported Smoking Status: Current every day smoker Past Alcohol Use History: None Reported Past Drug Use History: None Reported - Past Family History Father Family Medical History: Coronary Artery Disease (CAD) Additional Family Medical History / Comment(s): Father had double coronary bypass surgery in his 50s. Mother Family Medical History: No Reported History General Exam Limitations: no limitations General appearance: alert, in no apparent distress, other (This is a well- developed, well-nourished adult male patient in no acute distress. Vital signs upon presentation are temperature 98.3F, pulse 116, respirations 18, blood pressure 118/70, pulse ox 99% on room air.) Eye exam: Present: normal appearance, PERRL, EOMI. Absent: scleral icterus, conjunctival injection, periorbital swelling Respiratory exam: Present: normal lung sounds bilaterally, other (There is left posterior lateral rib tenderness. Mild soft tissue swelling noted. No ecchym osis or abrasion noted. No bony step-off or deformity.). Absent: respiratory distress, wheezes, rales, rhonchi, stridor Cardiovascular Exam: Present: regular rate, normal rhythm, normal heart sounds. Absent: systolic murmur, diastolic murmur, rubs, gallop, clicks GI/Abdominal exam: Present: soft, normal bowel sounds. Absent: distended, tenderness, guarding, rebound, rigid Neurological exam: Present: alert, oriented X3, CN II-XII intact Psychiatric exam: Present: normal affect, normal mood Skin exam: Present: warm, dry, intact, normal color. Absent: rash Course Vital Signs 08/28/20 21:18 Temperature 98.3 F Pulse Rate 116 H Respiratory 18 Rate Blood Pressure 118/70 O2 Sat by Pulse 99 Oximetry Medical Decision Making - Medical Decision Making 55-year-old male patient presents to the emergency department today for evaluation of left rib pain after experiencing a fall. Physical examination revealed tenderness over the left lateral ribs. Vital signs within normal ranges. Was given pain medication here. X-rays were obtained and showed no sign of rib fracture. He is educated regarding coughing and deep breathing. He is given incentive spirometer and education. He is instructed to follow-up with his primary care physician for recheck in 1-2 days. Return parameters were discussed in detail. He verbalizes understanding and agrees with this plan. - Radiology Data Radiology results: report reviewed, image reviewed 5 views of the chest and ribs is obtained. Report was reviewed in its entirety. Impression by Dr. Carlos shows no active cardiopulmonary disease. Normal heart. No rib fracture seen. There is clearing of the left pleural effusion compared to old exam Disposition Clinical Impression: Contusion of rib on left side Disposition: HOME SELF-CARE Condition: Good Instructions (If sedation given, give patient instructions): Rib Contusion (ED) Additional Instructions: Take medications as directed. Follow up with her primary care physician for recheck in 1-2 days. Return to the emergency department immediately for any new, worsening, or concerning symptoms. Prescriptions: Lidocaine 5% Patch [Lidoderm] 1 patch TOPICAL DAILY #30 patch Ibuprofen [Motrin] 600 mg PO Q8HR PRN #30 tab PRN Reason: Pain Is patient prescribed a controlled substance at d/c from ED?: No Referrals: Francisco Phipps MD [Primary Care Provider] - 1-2 days Time of Disposition: 22:39
--- NOTE | 2020-08-28 22:36 | XR ---
EXAMINATION TYPE: XR ribs LT w pa chest xray DATE OF EXAM: 08/28/2020 COMPARISON: Chest x-ray 10/10/2017 HISTORY: Left rib pain. Fall. TECHNIQUE: 5 views FINDINGS: Heart and mediastinum are normal. There are sternal wires. Lungs are clear of infiltrate. T here is no pleural effusion or pneumothorax. The left ribs appear intact. IMPRESSION: No active cardiopulmonary disease. Normal heart. No rib fracture seen. There is clearing of the left pleural effusion compared to old exam.
[2020-08-28] MEDS ORDERED: ACET/COD 300 MG/30 MG STARTER PACK 6 TAB BTL PO STA (22:39)
[2020-08-28 22:53] VITALS: BP 125/76; PULSE 86; RESP 20; TEMP 98.6
== END 2020-08-28 23:22 | disposition home or self-care (01) ==
LOC: EC 21:17
DX: S20.212A Contusion of left front wall of thorax, initial encounter (principal); F17.200 Nicotine dependence, unspecified, uncomplicated; I25.2 Old myocardial infarction; Z95.1 Presence of aortocoronary bypass graft; W10.9XXA Fall (on) (from) unspecified stairs and steps, initial encounter; Y93.89 Activity, other specified; Y92.009 Unspecified place in unspecified non-institutional (private) residence as the place of occurrence of the external cause
CPT/HCPCS: 71101; 99284; J1885

== ENCOUNTER 2020-10-27 12:48 | Emergency (ER) | payer OTHER ==
[2020-10-27 13:08] VITALS: BP 113/73; PULSE 110; RESP 18; TEMP 98.3
--- NOTE | 2020-10-27 13:34 | ED ---
Wound/Laceration HPI - General Chief Complaint: Wound/Laceration Stated Complaint: Rt ankle pain Time Seen by Provider: 10/27/20 13:12 Source: patient, RN notes reviewed Mode of arrival: wheelchair Limitations: no limitations - History of Present Illness Initial Comments: This is a 55-year-old male presents emergency Department with chief complaint of blister, sore on his right ankle. Patient states this started after he got a new pair of Shoes and States That It he was states that he rubbed on his right ankle. He states that there is no drainage no fevers chills she states it is sore to the touch. Patient states he is a diabetic but no history of ulcerations. - Related Data Previous Rx's Medication Instructions Recorded Cephalexin [Keflex] 500 mg PO Q6HR #40 cap 10/27/20 Allergies Allergy/AdvReac Type Severity Reaction Status Date / Time No Known Allergies Allergy Verified 10/27/20 13:29 Review of Systems ROS Statement: Those systems with pertinent positive or pertinent negative responses have been documented in the HPI. ROS Other: All systems not noted in ROS Statement are negative. Past Medical History Past Medical History: Diabetes Mellitus, Myocardial Infarction ([place]), Osteoarthritis (OA), Pulmonary Embolus ([place]) Additional Past Medical History / Comment(s): pt states diabetes has resolved after 62 lb weight loss Last Myocardial Infarction Date:: 2 years ago History of Any Multi-Drug Resistant Organisms: None Reported Past Surgical History: Coronary Bypass/CABG, Orthopedic Surgery Additional Past Surgical History / Comment(s): Right leg steel sinai, stent placed in gallbladder, as of 10-02 stent is out Past Anesthesia/Blood Transfusion Reactions: Previous Problems w/ Anesthesia Additional Past Anesthesia/Blood Transfusion Reaction / Comment(s): Stopped breathing during choly Past Psychological History: No Psychological Hx Reported Smoking Status: Current every day smoker Past Alcohol Use History: None Reported Past Drug Use History: None Reported - Past Family History Father Family Medical History: Coronary Artery Disease (CAD) Additional Family Medical History / Comment(s): Father had double coronary bypass surgery in his 50s. Mother Family Medical History: No Reported History General Exam Limitations: no limitations General appearance: alert, in no apparent distress Head exam: Present: atraumatic, normocephalic, normal inspection Eye exam: Present: normal appearance, PERRL, EOMI. Absent: scleral icterus, conjunctival injection, periorbital swelling ENT exam: Present: normal exam, mucous membranes dry, mucous membranes moist Neck exam: Present: normal inspection, full ROM. Absent: tenderness, meningismus, lymphadenopathy Respiratory exam: Present: normal lung sounds bilaterally. Absent: respiratory distress, wheezes, rales, rhonchi, stridor Cardiovascular Exam: Present: regular rate, normal rhythm, normal heart sounds. Absent: systolic murmur, diastolic murmur, rubs, gallop, clicks Extremities exam: Present: other (Right ankle lateral malleoli region, there is healing wound with surrounding erythema there is noted scab, pulses equal bilaterally there is no open lesions or sores there is point tenderness over the sore no surrounding tenderness) Neurological exam: Present: alert, oriented X3, CN II-XII intact, reflexes normal. Absent: motor sensory deficit Skin exam: Present: warm, dry, intact, normal color. Absent: rash Course Vital Signs 10/27/20 13:05 Temperature 98.3 F Pulse Rate 110 H Respiratory 18 Rate Blood Pressure 113/73 O2 Sat by Pulse 99 Oximetry Medical Decision Making - Medical Decision Making X-rays unremarkable. Patient has no evidence of stimulants. Patient does have some mild cyanotic changes. Patient was given oral antibiotics. Return parameters were discussed. Disposition Clinical Impression: Cellulitis of right ankle Disposition: HOME SELF-CARE Condition: Stable Instructions (If sedation given, give patient instructions): Cellulitis (ED) Additional Instructions: Please return to the Emergency Department if symptoms worsen or any other concerns. Prescriptions: Cephalexin [Keflex] 500 mg PO Q6HR #40 cap Is patient prescribed a controlled substance at d/c from ED?: No Referrals: Francisco Phipps MD [Primary Care Provider] - 1-2 days Time of Disposition: 13:57
--- NOTE | 2020-10-27 13:54 | XR ---
Right ankle HISTORY: Pain, infection 3 views of the right ankle Bone mineralization, joint spaces and alignment are maintained. There is mild soft tissue swelling. N o fracture or dislocation. Small plantar cranial spur. Enthesophyte present at the insertion of the A chilles tendon. IMPRESSION: Mild soft tissue swelling.
== END 2020-10-27 14:02 | disposition home or self-care (01) ==
LOC: EC 12:48
DX: L03.115 Cellulitis of right lower limb (principal); F17.200 Nicotine dependence, unspecified, uncomplicated; I25.2 Old myocardial infarction; Z95.5 Presence of coronary angioplasty implant and graft
CPT/HCPCS: 99283

== ENCOUNTER 2020-10-30 20:53 | Emergency (ER) | payer OTHER ==
[2020-10-30 21:09] VITALS: BP 116/72; RESP 18; TEMP 98.7
[2020-10-30] MEDS ORDERED: ACET/COD 300 MG/30 MG STARTER PACK 6 TAB BTL PO STA (21:12)
[2020-10-30] MEDS ORDERED: SULFAMETH-TMP DS STARTER PACK 2 TAB BTL PO STA (21:12)
[2020-10-30] MEDS ORDERED: KETOROLAC 15 MG/ML 1 ML VIAL IM STA (21:12)
--- NOTE | 2020-10-30 21:16 | ED ---
Extremity Problem HPI - General Chief complaint: Extremity Problem,Nontraumatic Stated complaint: ankle injury Time Seen by Provider: 10/30/20 21:01 Source: patient Mode of arrival: wheelchair Limitations: no limitations - History of Present Illness Initial comments: 55-year-old male patient presents to the emergency department today for evaluation of wound to the right lateral malleolus. Patient states that 5 days ago he wore [place] to work and it rubbed the area causing a bleeding wound. States he was seen in the emergency department three days ago because the area started to hurt. He was placed on antibiotics and discharged. Patient states that he is having more pain to the area now. Denies fever or chills. Denies any nausea or vomiting. He does have diabetes. He has been cleaning it, applying antibiotic ointment, and keeping it covered. Has not worn the shoes since. - Related Data Previous Rx's Medication Instructions Recorded Cephalexin [Keflex] 500 mg PO Q6HR #40 cap 10/27/20 Ibuprofen [Motrin] 600 mg PO Q8HR PRN #30 tab 10/30/20 Sulfamethoxazole/Trimethoprim 1 each PO BID #20 tablet 10/30/20 [Bactrim DS 800-160 mg] Allergies Allergy/AdvReac Type Severity Reaction Status Date / Time No Known Allergies Allergy Verified 10/30/20 21:05 Review of Systems ROS Statement: Those systems with pertinent positive or pertinent negative responses have been documented in the HPI. ROS Other: All systems not noted in ROS Statement are negative. Past Medical History Past Medical History: Diabetes Mellitus, Myocardial Infarction ([place]), Osteoarthritis (OA), Pulmonary Embolus (PE) Additional Past Medical History / Comment(s): pt states diabetes has resolved after 62 lb weight loss Last Myocardial Infarction Date:: 2 years ago History of Any Multi-Drug Resistant Organisms: None Reported Past Surgical History: Coronary Bypass/CABG, Orthopedic Surgery Additional Past Surgical History / Comment(s): Right leg steel sinai, stent placed in gallbladder, as of 10-02 stent is out Past Anesthesia/Blood Transfusion Reactions: Previous Problems w/ Anesthesia Additional Past Anesthesia/Blood Transfusion Reaction / Comment(s): Stopped breathing during choly Past Psychological History: No Psychological Hx Reported Smoking Status: Current every day smoker Past Alcohol Use History: None Reported Past Drug Use History: None Reported - Past Family History Father Family Medical History: Coronary Artery Disease (CAD) Additional Family Medical History / Comment(s): Father had double coronary bypass surgery in his 50s. Mother Family Medical History: No Reported History General Exam Limitations: no limitations General appearance: alert, in no apparent distress, other (This is a well-develo ped, well-nourished adult male patient in no acute distress. Vital signs upon presentation are temperature 98.7F, pulse 117, respirations 18, blood pressure 116/72, pulse ox 97% on room air.) Respiratory exam: Present: normal lung sounds bilaterally. Absent: respiratory distress, wheezes, rales, rhonchi, stridor Cardiovascular Exam: Present: regular rate, normal rhythm, normal heart sounds. Absent: systolic murmur, diastolic murmur, rubs, gallop, clicks Extremities exam: Present: full ROM, normal capillary refill, other (There is wound noted to the right lateral malleolus. Area is fluctuant and consistent with abscess. No surrounding erythema. No warmth over the area. No streaking. Skin is otherwise pink, warm, dry. Cap refill less than 3 seconds. Pedal pulse 2+.). Absent: normal inspection, tenderness, pedal edema, joint swelling, calf tenderness Neurological exam: Present: alert, oriented X3, CN II-XII intact Psychiatric exam: Present: normal affect, normal mood Skin exam: Present: warm, dry, intact, normal color. Absent: rash Course Vital Signs 10/30/20 10/30/20 21:05 21:35 Temperature 98.7 F Pulse Rate 117 H 106 H Respiratory 18 Rate Blood Pressure 116/72 O2 Sat by Pulse 97 Oximetry Medical Decision Making - Medical Decision Making 55 year-old male patient presents to the emergency department today for evaluation of painful wound to the right lateral malleolus. He sustained this injury while wearing a new. Shoes 5 days ago. He is currently taking Keflex. Physical examination did reveal wound over the right lateral malleolus that was fluctuant and consistent with abscess. I was able to manually expressed purulent fluid. I did obtain a wound culture. I will add Bactrim to his regimen to cover MRSA. We did discuss wound care and cleansing. He is instructed to put no pressure over the area. He is given a few days off of work. He is instructed to follow-up with his primary care physician for recheck in 1-2 days. Return parameters were discussed in detail. He verbalizes understanding and agrees with this plan. Case is discussed with my attending Dr. Short. Disposition Clinical Impression: Infected wound, Wound of right ankle Disposition: HOME SELF-CARE Condition: Good Instructions (If sedation given, give patient instructions): Wound Infection (ED), Acute Wound Care (ED) Additional Instructions: Use antibiotic ointment. Avoid pressure over the area. Complete antibiotic prescriptions in full. Follow up with primary care physician in 1-2 days for recheck of the wound. Return for any new, worsening, or concerning symptoms. Prescriptions: Sulfamethoxazole/Trimethoprim [Bactrim DS 800-160 mg] 1 each PO BID #20 tablet Ibuprofen [Motrin] 600 mg PO Q8HR PRN #30 tab PRN Reason: Pain Is patient prescribed a controlled substance at d/c from ED?: No Referrals: Francisco Phipps MD [Primary Care Provider] - 1-2 days Time of Disposition: 21:15
[2020-10-30 21:35] VITALS: PULSE 106
== END 2020-10-30 21:43 | disposition home or self-care (01) ==
LOC: EC 20:53
DX: S99.911A Unspecified injury of right ankle, initial encounter (principal); I25.2 Old myocardial infarction; F17.200 Nicotine dependence, unspecified, uncomplicated; Z86.711 Personal history of pulmonary embolism; X58.XXXA Exposure to other specified factors, initial encounter
CPT/HCPCS: 87070; 87205; 99283; 96372; J1885

== ENCOUNTER 2021-09-14 09:21 | Emergency (ER) | payer OTHER ==
[2021-09-14 09:25] VITALS: BP 106/68; PULSE 115; RESP 18; TEMP 97.7
--- NOTE | 2021-09-14 10:40 | USB ---
Reason for exam: clinical finding. US Breast LT Left limited breast ultrasound including focal area of concern, retroareolar and axilla demonstrates a 3.4 x 0.9 x 3.7cm irregular lesion at the posterior nipple, appears as gynecomastia. Right limited breast ultrasound including focal area of concern, retroareolar and axilla demonstrates a 2.5 x 2.1cm lesion at the posterior nipple, appears as gynecomastia. ASSESSMENT: Benign, BI-RAD 2 RECOMMENDATION: Clinical management of both breasts. Manage patient on a clinical basis.
--- NOTE | 2021-09-14 11:23 | ED ---
Skin/Abscess/FB HPI - General Chief complaint: Skin/Abscess/Foreign Body Stated complaint: lump on chest Time Seen by Provider: 09/14/21 09:29 Source: patient, RN notes reviewed Mode of arrival: ambulatory Limitations: no limitations - History of Present Illness Initial comments: 56-year-old male presents to the emergency department complaining of a left nipple lump. He notes he came to the emergency room for evaluation. He notes that it is mildly tender but doesn't bother him too much. He was otherwise well-appearing and comfortable while resting in bed. He denied chest pain shortness of breath headache nausea vomiting diarrhea constipation fever fatigue chills. - Related Data Home Medications Medication Instructions Recorded Confirmed No Known Home Medications 09/14/21 09/14/21 Allergies Allergy/AdvReac Type Severity Reaction Status Date / Time No Known Allergies Allergy Verified 09/14/21 11:01 Review of Systems ROS Statement: Those systems with pertinent positive or pertinent negative responses have been documented in the HPI. ROS Other: All systems not noted in ROS Statement are negative. Past Medical History Past Medical History: Diabetes Mellitus, Myocardial Infarction ([place]), Osteoarthritis (OA), Pulmonary Embolus (PE) Additional Past Medical History / Comment(s): pt states diabetes has resolved after 62 lb weight loss Last Myocardial Infarction Date:: 2 years ago History of Any Multi-Drug Resistant Organisms: None Reported Past Surgical History: Coronary Bypass/CABG, Orthopedic Surgery Additional Past Surgical History / Comment(s): Right leg steel sinai, stent placed in gallbladder, as of 10-02 stent is out Past Anesthesia/Blood Transfusion Reactions: Previous Problems w/ Anesthesia Additional Past Anesthesia/Blood Transfusion Reaction / Comment(s): Stopped janell athing during choly Past Psychological History: No Psychological Hx Reported Smoking Status: Current every day smoker Past Alcohol Use History: None Reported Past Drug Use History: None Reported - Past Family History Father Family Medical History: Coronary Artery Disease (CAD) Additional Family Medical History / Comment(s): Father had double coronary bypass surgery in his 50s. Mother Family Medical History: No Reported History General Exam Limitations: no limitations General appearance: alert, in no apparent distress Head exam: Present: atraumatic, normocephalic, normal inspection Eye exam: Present: normal appearance, PERRL, EOMI. Absent: scleral icterus, conjunctival injection, periorbital swelling ENT exam: Present: normal exam, mucous membranes moist Neck exam: Present: normal inspection Respiratory exam: Present: normal lung sounds bilaterally. Absent: respiratory distress, wheezes, rales, rhonchi, stridor Cardiovascular Exam: Present: regular rate, normal rhythm, normal heart sounds. Absent: systolic murmur, diastolic murmur, rubs, gallop, clicks Extremities exam: Present: normal inspection, full ROM, normal capillary refill. Absent: tenderness, pedal edema, joint swelling, calf tenderness Neurological exam: Present: alert, oriented X3 Psychiatric exam: Present: normal affect, normal mood Skin exam: Present: warm, dry, intact, normal color, other (Small lump mass on her left nipple mildly tender nonerythematous.). Absent: rash Course Vital Signs 09/14/21 09:24 Temperature 97.7 F Pulse Rate 115 H Respiratory 18 Rate Blood Pressure 106/68 O2 Sat by Pulse 98 Oximetry Medical Decision Making - Medical Decision Making 56-year-old male with a under his left nipple. Ultrasound of the left breast ordered. Ultrasound shows mild gynecomastia. Patient was informed that these usually resolve on her own if mild but if symptoms persist follow-up with primary care. Case discussed with Dr. Shipley, patient can discharge home. - Radiology Data Radiology results: report reviewed, image reviewed Ultrasound of the left breast: 2.5 x 2.1 cm lesion at the posterior nipple appears as gynecomastia Disposition Clinical Impression: Gynecomastia Disposition: HOME SELF-CARE Condition: Stable Instructions (If sedation given, give patient instructions): Gynecomastia (ED) Additional Instructions: Please return to the Emergency Department if symptoms worsen or any other concerns. Follow-up with primary care in 1-2 days. Is patient prescribed a controlled substance at d/c from ED?: No Referrals: Francisco Phipps MD [Primary Care Provider] - 1-2 days Time of Disposition: 11:24
== END 2021-09-14 11:29 | disposition home or self-care (01) ==
LOC: EC 09:21
DX: N62 Hypertrophy of breast (principal); E11.9 Type 2 diabetes mellitus without complications; I25.2 Old myocardial infarction; M19.90 Unspecified osteoarthritis, unspecified site; F17.200 Nicotine dependence, unspecified, uncomplicated
CPT/HCPCS: 99283